=== PATIENT | female | born 2005 | race Hispanic/Latino ===

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

== ENCOUNTER 2023-05-23 14:10 | Emergency (ER) | payer OTHER ==
--- OUTSIDE RECORDS SUMMARY | 2023-05-23 14:23 | XMS REPORT | Continuity of Care Document ---
:2005 Author Organization [facility] t Address [address] [facility] [address] [place] [address] Support Name Relationship Address Phone Formerly [facility], [facility] [id number] [place], [place] [id number] None2 O Unavailable Unavailable Legal Guardian, None O Created by the Eligibility Department Unavailable PLEASE DO NOT MODIFY Billing Purposes, Monik Srivastava M Unavailable Amee Delgado O [address] [place] [address] Odette Ceja V [address] [facility] [id number] [place] [address] Healthcare Proxy, None O Unavailable Unavailab le Legal Guardian O PLEASE DO NOT MODIFY!!!!!!! (000 ) [phone] DO NOT USE Billing Purposes, Legal Guardian, PLEASE STOP O PLEASE DO NOT MODIFY UPDATING!!!! PLEASE DO NOT MODIFY Billing Purposes, None1 O PLEASE DO NOT MODIFY Unavailable PLEASE DO NOT MODIFY Billing Purposes, Melodie Lewis V [address] [facility] [id number] [address] [place] [address] Jenn Tillman V [address] [place] [id number] [place] [address] Gale Hernandez O Unavailable Unavailable Billing Purposes, [place] [address] [place] [address] Shree Negrete O Unavailable Unavailable Kate Braun O Unavailable UnavailDr. Les Perez O Unavailable Unavailable Niya Ana O Unavailable Unavailable Legal Guardian, PLEAST STOP O PLEASE DO NOT MODIFY UPDATING!!! PLEASE DO NOT MODIFY Billing Purposes, Primary Caregiver O Unavailable Unavailable Legal Guardian O Please do not Modify 000 [id number] [phone] Please do not Modify Sole, Care Team Providers Name Role Phone [facility] Primary Care Physician Unavailable rodrigo Attending Clinician Unavailable Carmencita Kline Attending Clinician [phone] Yvonne Ayala MA Attending Clinician Unavailable Melissa Childers MD Attending Clinician [phone] Abbey NOLASCO, Xiomara Attending Clinician [phone] Woody Chew DO Attending Clinician Chela Botello MD Attending Clinician Unavailable Sonja BLACK MILL OPERATOR, Kate Attending Clinician Unavailable Tarun Costa MD Attending Clinician Unavailable Betty Diggs MD Attending Clinician [phone] Fay Brown MD Attending Clinician [phone] Jenn Tillman MD Attending Clinician [phone] Yvrose Hui Attending Clinician Unavailable Dipika Grullon Attending Clinician Unavailable Melissa Zeng MD Attending Clinician [phone] Yessica White Attending Clinician Unavailable Leesa Cortez Attending Clinician Unavailable Hunter Dunn MD Attending Clinician Unavailable Joon Agarwal MD Attending Clinician [phone] Violette Russo Attending Clinician Unavailable Destiney Hui Attending Clinician Unavailable Mell Negrete Attending Clinician Unavailable Sumanth Moreno MD Attending Clinician [phone] Tatianna Varma Attending Clinician Unavailable Jose C Rosado Attending Clinician [phone] Nicho Talley MD Attending Clinician [phone] Gary Beltran Attending Clinician Unavailable Valentino Zeng Attending Clinician Unavailable Anisa Stewart MD Attending Clinician Melodie Lewis MD Attending Clinician Trisha Gunter Attending Clinician [phone] Jill Carrillo Attending Clinician Unavailable Christy Shell Attending Clinician [phone] Yessica White Attending Clinician Unavailable Odette Ceja Attending Clinician [phone] Lynette David Attending Clinician Unavailable Liborio Smith Attending Clinician Unavailable Provider, [facility] Attending Clinician Unavail able Renuka Leo Attending Clinician Unavailable Grecia Cruz Attending Clinician [phone] Parish Cao Attending Clinician [phone] Adelia Meyers Attending Clinician Unavailable Status, Fax Attending Clinician Unavailable Brigida Carpenter Attending Clinician [phone] Chen Jackson Attending Clinician Unavailable Donna Kerns Attending Clinician Unavailable Kenya Chau MD Attending Clinician [phone] Dali Phelps Attending Clinician Unavailable Tracy Howard Attending Clinician Unavailable Gary Beltran Attending Clinician Unavailable Darwin Romero Attending Clinician Tyesha Phelps Attending Clinician Unavailable Jolly Ingram Attending Clinician Unavailable Henny Valencia Attending Clinician Unavailable Marifer Cao Attending Clinician Unavailable Matilda Rene LCSW Attending Clinician Unavailable Danna Villalpando Attending Clinician Unavailable Taya Hein Attending Clinician [phone] Farrah Mccoy Attending Clinician [phone] Marycruz Phelps Attending Clinician Unavailable Gerri Jara Attending Clinician [phone] Adele Ellington Attending Clinician Unavailable Amina Gray Attending Clinician Unavailable Marifer Cope Attending Clinician Unavailable Mary Ch Attending Clinician Unavailable Theresa Meyers Attending Clinician [phone] Luis Armando Burrell Attending Clinician [phone] Allison Thrasher Attending Clinician [phone] Leena Bird Attending Clinician [phone] Yolanda James Attending Clinician Unavailable Nikia Francis Attending Clinician Unavailable Evy Hughes Attending Clinician Unavailable Donna Moy Attending Clinician Unavailable Record, Locums Provider Attending Clinician Unavailable Tamara Shepard Attending Clinician Unavailable Jayesh Nelson Attending Clinician Unavailable Joi Bird Attending Clinician [phone] Aurea Garcia Attending Clinician Unavailable Rosalie Collier Attending Clinician Unavailable Keesha Hopper Attending Clinician Unavailable Vesta Vernon Attending Clinician [phone] Parish Stanley Attending Clinician Unavailable Nicky Stanley Attending Clinician Unavailable Anisa He Attending Clinician Unavailable Beverly Puckett Attending Clinician [phone] Lily Bird Attending Clinician Unavailable Naomy Camacho Attending Clinician [phone] Francoise Gordillo Attending Clinician [phone] Alton Purvis Attending Clinician Unavailable Dilma Kellogg Attending Clinician Unavailable Patricia Stanley Attending Clinician Unavailable Melissa Mcgregor Attending Clinician [phone] Fatoumata Kirkland MD Attending Clinician [phone] Lia Shelton Attending Clinician Unavailable Camila Hernandez MD Attending Clinician Unavailable Manda Reyes Attending Clinician Unavailable Emily Ricardo Attending Clinician Unavailable Irene Champagne Attending Clinician [phone] Lida Shah Attending Clinician Unavailable Monik Espino Attending Clinician Unavailable Felicia Ogden Attending Clinician Unavailable Shravan Johns Attending Clinician Unavailable Ariela Mcgrath Attending Clinician [phone] Parish Jain Attending Clinician [phone] Moise Lee Attending Clinician [phone] Katiuska Patel Attending Clinician [phone] Enrico HATCH, Carmencita Unavailable [phone] Melissa Childers MD Unavailable [phone] Woody Chew DO Unavailable Ayan NOLASCO, Chela Unavailable Unavailable Sonja BLACK MILL OPERATOR, Kate Unavailable Unavailable Parish RN, Yoon Unavailable Unavailable Jenn Tillman MD Unavailable [phone] Anisa Stewart MD Unavailable Melodie Lewis MD Unavailable [phone] Marcial NOLASCO, Turkmen Unavailable [phone] Gerri Fuentes Unavailable [phone] Allison Nickerson Unavailable [phone] Pelon UGALDE LD, Joi Unavailable [phone] Theresa Meyers MD Unavailable [phone] Fatoumata Kirkland MD Unavailable [phone] Saulo NOLASCO, Vesta Unavailable [phone] Igor NOLASCO, Tarun Unavailable Unavailable Maddie ANIMAL SERVICES OFFICER, Jose C Unavailable [phone] Gerri NOLASCO, Nicho Unavailable [phone] Ihsan BLACK MILL OPERATOR, Irene Unavailable [phone] Alcides ANIMAL SERVICES OFFICER, Ariela Unavailable [phone] Jorge NOLASCO, Katiuska Unavailable [phone] Payers Payer Name Policy Type Policy Number Effective Date Expiration Date S doug [facility] [id number] 2020 00:00:00 Problems Condition Condition Condition Status Onset Resolution Last Treating Co mments Source Name Details Category Date Date Treatment Clinician Date Back pain, Condition Active 2023-03-19 EnricoBarbraa low 03-17 22:44:[address] 00:00: Pediatr 00 ics Emergency Condition Active 2023-03-19 Enrico Franciscomaryjane contracept 03-17 22:44:[address] ion 00:00: Pediatr 00 ics Neck and Condition Active 2023-03-19 Franciscomaryjane back pain 01-06 22:40:[address] 00:00: Pediatr 00 ics Macromasti Condition Active 2023-03-19 Barbara Childers a 01-06 22:40:[address] 00:00: Pediatr 00 ics Allergic Condition Active 2023-03-19 [facility] urticaria 12-12 22:40:[address] due to 00:00: Carlos Manuel Pediatr drug 00 ics Bacterial Condition Active 2023-03-19 Ayan Franciscomaryjane vaginosis 12-06 22:40:[address] 00:00: Pediatr 00 ics BMI Condition Active 2023-03-19 Karuna Casillas 38.0-38.9 12-05 22:40:[address] 00:00: Pediatr 00 ics Screening Condition Active 2023-03-19 Barbara Casillas for std 12-05 22:40:[address] 00:00: Pediatr 00 ics Exercise Condition Active 2023-03-19 Neil Casillas outmaryjane Counseling 12-05 22:40:[address] 00:00: Pediatr 00 ics Chlamydial Condition Active 2022-10-23 Barbara Lugo infection 3-15 16:40:[address] 00:00: Pediatr 00 ics Gonorrhea, Condition Active 2022-10-23 Barbara Lugo acute 315 16:40:[address] 00:00: Pediatr 00 ics At risk of Condition Active 2022-03-13 Barbara Tillman 03-12 09:21:[address] 00:00: Pediatr 00 ics Elevated Condition Active 2022-10-23 Barbara Tillman blood 03-12 16:40:[address] pressure 00:00: Pediatr without 00 ics diagnosis of hypertensi on Asthma, Condition Active 2022-03-13 Francisco Tillmanmaryjane mild 03-12 09:21:[address] persistent 00:00: Pediat r , 00 ics uncomplica claudia Nicotine Condition Active 2022-03-13 lennie Tillman dependence 03-12 09:21:[address] 00:00: Pediatr 00 ics Vitiligo Condition Active 2021-03-17 Karl urbinamaryjane 11-30 18:45:49 Obiora, st 00:00: Anisa Pediatr 00 ics Macromasti Condition Active 2019-072020-11-30 Remoue [facility] a 0-16 10:31:23 Morales, st 00:00: Melodie Pediatr 00 ics Sleep Condition Active 2020-02-21 Odette Ceja outhmaryjane disorder 02-20 17:16:55 st 00:00: Pediatr 00 ics Acne Condition Active 2020-01-24 Odette Ceja outmaryjane comedone 01-23 15:15:30 st 00:00: Pediatr 00 ics HEADACHE / HEADACHE Diagnosis Active 2018-072019-08-23 Memoria VOMITING / VOMITING 08-23 13:49:00 l Active 00:00: Akash 06/22/[address] [place] [id number] Vitamin D Condition Active 2018-12-08 Odette Ceja deficiency 12-08 13:43:00 st 00:00: Pediatr 00 ics ABDOMINAL ABDOMINAL Diagnosis Active 2018-09-15 Memoria PAIN PAIN 09-15 22:23:00 l Active 00:00: [facility] [place] 09/15/2018 00 [facility] Anger Condition Active 2017-12-06 Gerri Jara outhwe 12-03 11:05:[address] 00:00: Pediatr 00 ics Behavioral Condition Active 2022-03-12 Adelfo Thrasher en was [place] problems 08-15 14:21:[address] 00:00: to [facility] Pediatr 00 yesterday ics to be assessed. Dietary Condition Active 2022-03-12 Barbara Bird surveillan 01-03 14:21:[address] ce and 00:00: Pediatr counseling 00 ics Obesity Condition Active 2017-03-30 Neil Meyers outwe 12-20 17:58:[address] 00:00: Pediatr 00 ics Hypertrigl Condition Active 2014-12-09 Isael Barbara yceridemia 5-19 20:39:[address] 00:00: Pediatr 00 ics Abnormal Condition Active 2014-12-06 Barbara Kirkland weight 5-19 14:03:[address] gain 00:00: Pediatr 00 ics ACANTHOSIS Condition Active 2013-02-11 Saulo Franciscomaryjane NIGRICANS 4-18 11:41:[address] 00:00: Pediatr 00 ics Vaginal Condition Active 2022-10-23 2022-12-05 Barbara Casillas discharge 8 00:00:00 16:32:[address] 00:00: Pediatr 00 ics ABNORMAL Condition Active 2016-12-20 2022-12-05 Barbara Casillas WEIGHT 4-18 00:00:00 16:32:[address] GAIN 00:00: Pediatr 00 ics History of Past Illness Condition Condition Condition Status Onset Resolution Last Treating Co mments Source Name Details Category Date Date Treatment Clinician Date Urinary Condition Inactiv 2023-03-19 2023-03-19 Barbara Weston frequency e 5 00:00:00 22:44:[address] 00:00: Pediatr 00 ics Allergic Condition Inactiv 2016-2023-03-19 2023-03-19 Barbara Weston rhinitis e 00:00:00 22:44:[address] 00:00: Pediatr 00 ics BMI => Condition Inactiv 2017-0 2022-12-05 2022-12-05 Barbara Casillas 95%ile for e 5-16 00:00:00 16:32:[address] age 00:00: Pediatr 00 ics Health Condition Inactiv 2022-10-23 2022-10-23 Barbara Costa advice, e 3-13 00:00:00 16:41:[address] education, 00:00: Pediat r or 00 ics counseling Implantabl Condition Inactiv 2021-072022-10-23 2022-10-23 Barbara Costa [...] Inactiv 2020-072022-10-23 2022-10-23 Barbara Costa throat e 2- 00:00:00 16:41:[address] 00:00: Pediatr 00 ics Headache, Condition Inactiv 2020-072022-10-23 2022-10-23 Barbara Costa mixed e 1-17 00:00:00 16:41:[address] 00:00: Pediatr 00 ics Exercise Condition Inactiv 2022-10-23 2022-10-23 Barbara Costa Counseling e 9 00:00:00 16:41:[address] 00:00: Pediatr 00 ics Contracept Condition Inactiv 2019-072022-10-23 2022-10-23 IgorBarbara ion e 0-16 00:00:00 16:41:[address] counseling 00:00: Pediat r 00 ics Emergency Condition Inactiv 2019-072022-10-23 2022-10-23 IgorFranciscomaryjane contracept e 0-14 00:00:00 16:41:[address] ion 00:00: Pediatr 00 ics Std Condition Inactiv 2019-072022-10-23 2022-10-23 Igor Franciscomaryjane screening e 0-14 00:00:00 16:41:[address] 00:00: Pediatr 00 ics Chest wall Condition Inactiv 2020-072022-03-12 2022-03-13 Barbara Tillman pain e 1 00:00:00 09:21:[address] 00:00: Pediatr 00 ics Exposure Condition Inactiv 2020-072022-03-12 2022-03-13 Barbara Tillman to scabies e 08-05 00:00:00 09:21:[address] 00:00: Pediatr 00 ics URI Condition Inactiv 2022-03-12 2022-03-13 Barbara Tillman e 04-04 00:00:00 09:21:[address] 00:00: Pediatr 00 ics Loss of Condition Inactiv 2022-03-12 2022-03-13 Barbara Tillman smell e 915 00:00:00 09:21:[address] 00:00: Pediatr 00 ics Back pain Condition Inactiv 2022-03-12 2022-03-13 Barbara Tillman e 5- 00:00:00 09:21:[address] 00:00: Pediatr 00 ics Skin rash Condition Inactiv 2022-03-12 2022-03-13 Barbara Tillman e 7 00:00:00 09:21:[address] 00:00: Pediatr 00 ics Asthma Condition Inactiv 2016-072022-03-12 2022-03-13 Barbara Tillman exacerbati e 2-29 00:00:00 09:21:[address] on 00:00: Pediatr 00 ics Tension Condition Inactiv 2015-2022-03-12 2022-03-13 Barbara Tillman headache e 12-19 00:00:00 09:21:[address] 00:00: Pediatr 00 ics WELL CHILD Condition Inactiv 2012-2022-03-12 2022-03-13 Barbara Tillman EXAMINATIO e 4-18 00:00:00 09:21:[address] N 00:00: Pediatr 00 ics Sexual Condition Inactiv 2020-2021-07-01 2021-04-01 Barbara Perkins activity, e 04-01 00:00:00 17:00:17 Carrsade s t high risk 00:00: Pediatr 00 ics Gonococcal Condition Inactiv 2021-07-01 2021-04-01 Barbara Perkins pharyngiti e 04-01 00:00:00 17:00:[address] s 00:00: Pediatr 00 ics Pharyngiti Condition Inactiv 2021-06-17 2021-03-17 Julieta Talley s acute e 03-17 00:00:00 18:46:48 st 00:00: Pediatr 00 ics Abdominal Condition Inactiv 2021-06-17 2021-04-01 Nicho Talley [...] Pediatr 00 ics Back pain, Condition Inactiv 2018-2020-11-30 2020-11-30 Karl Jimenez chronic e 8-14 00:00:00 10:42:17 Obiora, st 00:00: Anisa Pediatr 00 ics Well Condition Inactiv 2017-2020-11-30 2020-11-30 Karl Singhmaryjane adolescent e 5-16 00:00:00 10:42:17 Obiora, s t care 00:00: Anisa Pediatr 00 ics Screening Condition Inactiv 2019-2020-01-28 2020-01-24 Odette Ceja e 01-23 00:00:00 15:15:30 st 00:00: Pediatr 00 ics [...] e 3-13 00:00:00 15:15:30 st UNSPECIFIE 00:00: Pediat r D 00 ics Streptococ Condition Inactiv 2019-12-07 2019-09-13 Julieta Talley channing e 09-08 00:00:00 11:07:18 st pharyngiti 00:00: Pediat r s 00 ics Diarrhea, Diarrhea, Problem 2018-2019-06-24 2019-06-24 Memoria unspecifie unspecifie 08-23 23:31:42 23:31:42 l d d 18:00: Akash 06/22/2019 00 06/24/2019 [facility] Headache Headache Problem 2018-2019-06-24 2019-06-24 Memoria 06/22/201908-23 23:31:42 23:31:42 l 18:00: Gigi lerner [address] Nausea Nausea Problem 2019-2019-06-24 2019-06-24 Memoria with with 08-23 23:31:42 23:31:42 l vomiting, vomiting, 18:00: Herm josephine unspecifie unspecifie 00 d d 06/22/2019 9 [facility] Dehydratio Dehydrati Problem 2018-2019-06-24 2019-06-24 Memoria n on 08-23 23:31:42 23:31:42 l 06/22/2019 18:00: Gigi n 06/24/2019 00 [facility] Fever, Fever, Problem 2018-072019-06-24 2019-06-24 Memoria unspecifie unspecifie 08-23 23:31:42 23:31:42 l d d 18:00: [place] 06/22/2019 00 06/24/2019 [facility] Sore Condition Inactiv 2018-2019-05-12 2019-04-28 Odette Ceja throat e 009 00:00:00 12:50:51 st (acute) 00:00: Pediatr 00 ics Screening, Condition Inactiv 2018-2018-11-27 2018-11-25 Odette Ceja STD e 11-25 00:00:00 18:23:29 st 00:00: Pediatr 00 ics Sore Condition Inactiv 2018-2018-11-25 2018-11-25 Odette Ceja throat e 08-25 00:00:00 18:23:29 st (acute) 00:00: Pediatr 00 ics Folliculit Condition Inactiv 2018-2018-11-25 2018-11-25 Odette Ceja is e 2-05 00:00:00 18:23:29 st 00:00: Pediatr 00 ics URI, acute Condition Inactiv 2018-2018-11-25 2018-11-25 Odette Ceja NOS e 2- 00:00:00 18:23:29 st 00:00: Pediatr 00 ics Fever NOS Condition Inactiv 2018-2018-11-25 2018-11-25 Odette Ceja e 2-05 00:00:00 18:23:29 st 00:00: Pediatr 00 ics Unspecifie Unspecifi Problem 2018-2018-09-19 2018-09-19 Memoria d ed 09-16 01:44:04 01:44:04 l abdominal abdominal 06:00: Herm josephine pain pain 00 09/16/2018 09/19/2018 Emiliana Stahlopharyn Condition Inactiv 2017-2017-12-06 2017-12-06 Gerri Jara gitis, e 10-30 00:00:00 11:05:[address] acute 00:00: Pediatr 00 ics Head lice Condition Inactiv 2017-2017-12-06 2017-12-06 Gerri Jara e 10-30 00:00:00 11:05:[address] 00:00: Pediatr 00 ics Conjunctiv Condition Inactiv 2017-10-30 2017-10-30 Barbara Meyers itis acute e 08-15 00:00:00 10:23:[address] 00:00: Pediatr 00 ics Acute Condition Inactiv 2016-072017-10-30 2017-10-30 Barbara Meyers sinusitis e 00:00:00 10:23:25 Theresa s t 00:00: Pediatr 00 ics ALLERGIC Condition Inactiv 2013-072017-08-15 2017-08-15 OsterholmBarbara RHINITIS e 08-15 00:00:00 13:04:13 Allison E [...] 03-20 00:00:00 11:50:[address] superficia 00:00: Pediat [...] 08-04 00:00:00 11:50:12 Theresa s t 00:00: Pediatr 00 ics PEDICULOSI Condition Inactiv 2012-072016-12-20 2016-12-20 Barbara Meyers S CAPITIS e 0- 00:00:00 11:50:12 Theresa s t (HEAD 00:00: Pediatr LOUSE) 00 ics STREPTOCOC Condition Inactiv 2012-072016-12-20 2016-12-20 Barbara Meyers CHANNING e 0-25 00:00:00 11:50:[address] PHARYNGITI 00:00: Pediat r S 00 ics UNSPECIFIE Condition Inactiv 2016-12-20 2016-12-20 Barbara Meyers D VISUAL e 11-05 00:00:00 11:50:[address] LOSS 00:00: Pediatr 00 ics Sinusitis Condition Inactiv 2015-12-03 2015-12-03 Barbara Meyers e 09-08 00:00:00 16:11:[address] 00:00: Pediatr 00 ics Gastroente Condition Inactiv 2014-2015-12-03 2015-12-03 Barbara Meyers ritis, e 12-19 00:00:00 16:11:[address] viral 00:00: Pediatr 00 ics Pharyngiti Condition Inactiv 2014-2015-12-03 2015-12-03 Barbara Meyers s, acute e 12-06 00:00:00 16:11:[address] 00:00: Pediatr 00 ics Otitis Condition Inactiv 2014-2015-12-03 2015-12-03 Barbara Meyers externa e 12-06 00:00:00 16:11:[address] Right 00:00: Pediatr 00 ics FEVER Condition Inactiv 2015-12-03 2015-12-03 Barbara Meyers e 08-23 00:00:00 16:11:[address] 00:00: Pediatr 00 ics OTITIS Condition Inactiv 2015-12-03 2015-12-03 Barbara Meyers MEDIA, e 08-23 00:00:00 16:11:[address] SEROUS 00:00: Pediatr 00 ics PHARYNGITI Condition Inactiv 2014-02-01 2013-08-04 RamaswaBarbara moses S ACUTE e 08-04 00:00:00 13:19:[address] 00:00: Pediatr 00 ics ABDOMINAL Condition Inactiv 2013-02-15 2013-02-11 Barbara Mcgrath PAIN, e 02-11 00:00:00 11:50:[address] UNSPECIFIE 00:00: Pediat r D 00 ics PHARYNGITI Condition Inactiv 2012-10-21 2012-09-30 Barabra Patel S ACUTE e 09-30 00:00:00 13:31:[address] 00:00: Pediatr 00 ics LICE Condition Inactiv 2012-10-14 2012-09-30 Barbara Patel e 09-30 00:00:00 13:31:[address] 00:00: Pediatr 00 ics Allergies, Adverse Reactions, Alerts Allergy Allergy Status Severity Reaction(s) Onset Inactive Treating Comm ents Source Name Type Date Date Clinician METRONID Drug Active High Rash 2023-0 [facility] AZOLE allergy Criticali 6-07 [place] (disorde ty 00:00: [place]) 00 [facility] e No Known No Known Active Memori a Medicati Medicati l on on Akash Allergie Allergie s s Social History Social Habit Start Date Stop Date Quantity Comments Source social history 2023-03-17 2023-03-17 reviewed today [facility] reviewed E&M 14:26:02 14:26:02 [facility] drug use 2023-03-17 2023-03-17 Never [facility] 14:26:02 14:26:02 [facility] if the patient is 2023-03-17 2023-03-17 No [facility] using/has used a 14:26:02 14:26:02 Commun[facility] vaping item, Health Current, Former, Never Used, Not asked alcohol use 2023-03-17 2023-03-17 Currently [facility] 14:26:02 14:26:02 [facility] Health number of children 2023-03-17 2023-03-17 [facility] 14:26:02 14:26:02 [facility] Health sexual orientation 2023-03-17 2023-03-17 Heterosexual [facility] [facility] 14:26:02 14:26:02 [facility] Health is there any chance 2023-03-17 2023-03-17 No [facility] y that you could be 14:26:02 14:26:02 Communi ty ? Health tobacco use 2023-03-17 2023-03-17 Currently [facility] (cigarettes, cigar, 14:26:02 14:26:02 Commu nity chew, pipe) Health PHQ2 Questionairre 2023-01-06 2023-01-06 [facility] Score 13:03:42 13:03:42 [facility] Health number of sexual 2023-01-06 2023-01-06 [facility] partners in last 13:03:42 13:03:42 Communit y year Health Ever had sexual 2023-01-06 2023-01-06 Yes [facility] intercourse? 13:03:42 13:03:42 [facility] Health assessment of health 2023-01-06 2023-01-06 Adequate [facility] literacy (NCQA [facility] 13:03:42 13:03:42 Commu nity 2014 Standards, Health 3C10) how often per day 2023-01-06 2023-01-06 current every day [facility] the patient is using 13:03:42 13:03:42 [facility] [employer] Health passive cigarette 2022-12-25 2022-12-25 LA32-8 [facility] smoke exposure 13:18:04 13:18:04 [facility] albumin, serum 2022-12-24 2022-12-24 4.3 g/dL [facility] 10:51:00 10:51:00 [facility] condom use 2022-12-12 2022-12-12 Never [facility] 13:15:58 13:15:58 [facility] sex at 2022-12-12 2022-12-12 F [facility] 13:15:58 13:15:58 [facility] time of call 2022-12-09 2022-12-09 12/09/2022 3:10 PM [facility] 15:10:33 15:10:33 [facility] Patient was 2022-12-05 2022-12-05 Counseled for [facility] counseled for sexual 14:56:35 14:56:35 sexual health C [facility]munity safety safety. Health Category for Work 2022-09-26 2022-09-26 Food & Alcohol Leg acy 12:46:32 12:46:32 [facility] Health total number of 2022-09-26 2022-09-26 [facility] lifetime sexual 12:46:32 12:46:32 [facility] current school grade 2022-01-10 2022-01-10 currently [facility] [facility] level 09:19:30 09:19:30 enrolling into [facility] [employer], no school Health at the moment Gender(s) of 2022-01-10 2022-01-10 Male [facility] previous or current 09:19:30 09:19:30 Commu nity sexual relationships Heal nutrition 2017-01-03 2017-01-03 nothing [facility] assessment, 24-hour 14:16:51 14:16:51 Commu nity food intake recall, [facility] breakfast nutrition 2017-01-03 2017-01-03 does not remember [facility] assessment, 24-hour 14:16:51 14:16:51 Commu [facility] 2017-01-03 2017-01-03 No [facility] assessment, history, 14:16:51 14:16:51 Comm unity do you do any Health exercise or physical activity? nutrition 2017-01-03 2017-01-03 abbibrain, with [facility] assessment, 24-hour 14:16:51 14:16:51 oil and onion. C ommunity food intake recall, nothing. Healt h lunch TV or video use, 2014-12-06 2014-12-06 3-4 [facility] hours per day 12:29:45 12:29:45 [facility] Smoking Status Start Date Stop Date Source Smokes tobacco daily 2023-03-17 14:26:02 [facility] (finding) Ex-smoker (finding) 2020-01-24 13:25:51 2020-01-24 13:25:51 [facility] Social History [facility] Medications Ordered Filled Start Stop Current Ordering Indication Dosage Frequency Signature Comments Components Source Medication Medication Date Date Medication? Clinician (SIG) Name Name (IBUPROFEN) Yes Arbelia 1 Take 1 S outhwe 600 MG TABS 8-28 Enrico PA tablet by st 00:00: mouth Pediatr 00 every six ics to eight hours as needed for pain, NEHA Yes Arbelia 1 Take 1 [place] (ULIPRISTAL 8-28 Enrico PA tablet by st ACETATE) 30 00:00: mouth once Pediatr MG TABS 00 a day RODNEY ics within 120 hours (5 days) of unprotecte d intercours e or known/susp ected contracept wale failure (CLINDAMYCI 2022- No Xiomara 1 Take 1 [place] N HCL) 300 6-07 08-30 Abbey NOLASCO capsule by st MG CAPS 00:00: 00:00 mouth Pediatr 00 :00 twice a ics day RETIN-A Yes Arnold 1 Apply 1 a Karuna thwe (TRETINOIN) 5-[address] 0.025 % 00:00: Naina amount to Pediatr CREA 00 DO affected ics area every night as directed Apply small green pea sized amount to clean face at night. Wash off in am, apply (PREDNISONE 2022- No Arnold 1 1 tablet [place] ) 20 MG 5-25 08-30 Carlos Manuel by mouth st TABS 00:00: 00:00 Naina twice a Pedi atr 00 :00 DO day for 3 ics days then 1 a day for 3 days (METRONIDAZ 2022- No Chela 1 Take 1 Karuna thwe OLE) 500 MG 12-06 Ayan NOLASCO tablet by st TABS 00:00: 00:00 mouth Pediatr 00 :00 twice a ics day ALBUTEROL Yes Tarun Inhale 4-6 So uthwe SULFATE HFA 4-05 Igor NOLASCO puff using st (ALBUTEROL 16:05: inhaler Pedi atr SULFATE) 14 every four ics 108 (90 to six Base) hours as MCG/ACT needed use AERS with spacer as needed for difficulty breathing/ wheezing/p ersistent cough. SPRINTEC 28 2021-07- No Peace 1 Take 1 So uthwe (NORGESTIMA 08-21 04- Nwegbo-Ban tablet by st TE-ETH 00:00: 00:00 jessica NOLASCO mouth once Ped iatr ESTRADIOL) 00 :00 a day ics 0.25-35 Start MG-MCG TABS today NEXPLANON 2021- No [place] (ETONOGESTR 04-[address] EL) 68 MG 00:00: 00:00 Pediatr IMPL 00 :00 ics NEHA 2022- No Jenn 1 Take 1 w e (ULIPRISTAL 03-12 [address] [facility]) 30 00:00: 00:00 mouth Pedi atr MG TABS 00 :00 single ics dose within 120 hours (5 days) of unprotecte d sex ZITHROMAX 2021- No Melissa 4 Take 4 Karuna thwe (AZITHROMYC 01-14 [address] IN) 250 MG 00:00: 00:00 mouth Pedia tr TABS 00 :00 single ics dose SPRINTEC 28 2021- No Jenn 1 Take 1 we (NORGESTIMA 01-[address] TE-ETH 00:00: 00:00 mouth once Pedi atr ESTRADIOL) 00 :00 a day ics 0.25-35 every day MG-MCG TABS PROAIR HFA 2020-07 Yes Jenn 2-4 puff [place] (ALBUTEROL [address] SULFATE) 00:00: inhaler Pediat r 108 (90 00 every four ics Base) hours as MCG/ACT needed as AERS cough or wheezing or chest tightness or shortness of breath ProAir HFA 2020-07- No Jenn 2-4 puff [place] 90 210-[address] mcg/actuati 00:00: 00:00 inhaler Pe diatr on HFA 00 :00 every four ics aerosol hours as inhaler needed as cough or wheezing or chest tightness or shortness of breath FLOVENT HFA 2020-07- No Jenn 2 Inhale 2 we (FLUTICASON 08-[address] E 00:00: 00:00 MD directed Pediatr PROPIONATE 00 :00 twice a ics HFA) 44 day as MCG/ACT needed for INHA chest tightness or shortness of breath or wheezing or cough. (IBUPROFEN) 2020-07- No Hunter Dunn 1 Take 1 [place] 400 MG TABS 08-21 MD tablet by [...] MG 00:00: 00:00 twice a Pedi atr [id number] 00 :00 day as ics needed for cough Augmentin 2020-07 No Hunter Dunn 1 Take 1 S outhwe 875-125 mg 08-[address] tablet 00:00: 00:00 mouth Pediatr 00 :00 every ics twelve hours for sinus infection (PERMETHRIN 2020-07- No Rayne Apply Karuna we ) 5 % CREA 08-[address] 00:00: 00:00 to skin as [...] 1 tablet Karuna thwe 600 MG TABS 5-13 03-[address] 00:00: 00:00 every Pediatr 00 :00 eight ics hours as needed ALLERGY 2019-07- No Melodie take 1 tab S outhwe RELIEF - Remoue per day as st CHILDRENS 00:00: 00:00 Morales needed for Pediatr 10 MG ORAL 00 :00 MD itchiness ics TABLET CHEWABLE (CLINDAMYCI 2019-07- No Melodie 1 one [place] [facility] N HCL) 300 11-30 Remoue tablet by label st MG CAPS 00:00: 00:00 Morales mouth Pedi atr 00 :00 MD every 6 ics hours for 10 days (FLUCONAZOL 2019-07- Melodie Take 1 tab [facility] E) 150 MG 11-[address] TABS 00:00: 00:00 Morales Pediatr 00 :00 MD ics (MELATONIN) 2020- Odette Ceja MD 1{Table 1xD 1 tablet [facility] 5 MG TABS 02-20 t} every st 00:00: 00:00 night Pediatr 00 :00 ics (PERMETHRIN Odette Ceja MD Apply to [facility] ) 5 % CREA 02-[address] 00:00: 00:00 neck down, Pediat r 00 :00 leave on ics overnight and wash off in the morning (ERGOCALCIF Odette Ceja MD 1{Capsu Q7.33907U 1 caps ule [facility] MALACHI) 1.25 02-20 le} once a st MG (53486 00:00: 00:00 week for 8 P ediatr UT) CAPS 00 :00 weeks ics FLONASE 2020- No Odette Ceja 1 1 spray Karuna we ALLERGY 01-[address] RELIEF 00:00: 00:00 nostrils Pediat r (FLUTICASON 00 :00 once a day ic s E PROPIONATE) 50 MCG/ACT SUSP (PERMETHRIN 2020- No Odette Ceja MD Apply to [facility] ) 5 % CREA 01-[address] 00:00: 00:00 neck down, Pediat r 00 :00 leave on ics overnight and wash off in the morning (TRETINOIN) 2020- No Odette Ceja MD apply [facility] 0.025 % 01-[address] CREA 00:00: 00:00 amount to Pediatr 00 :00 affected ics area at night, wash off in am (CLOTRIMAZO 2020- No Odette Ceja MD Apply to [facility]) 1 % 01-23 05-[address] CREA 00:00: 00:00 chest Pediatr 00 :00 twice ics daily for 6 weeks or until gone (HYDROXYZIN 2019- No Sharmilla 8 ml by [facility] E HCL) 10 01-17- Prince Chau MD mouth st MG/5ML SYRP 00:00: 00:00 every 8 Pe diatr 00 :00 hours as ics needed for rash, itching (PERMETHRIN 2019- No Sharmilla Apply to [facility] ) 5 % CREA 01-17 Prince Chau MD affected label st 00:00: 00:00 areas face please Pedi atr 00 :00 sparing ics eyes , mouth, from neck down, leave on overnight and wash off in the morning( only one time tonite) (AMOXICILLI 2019- No Nicho Gerri 2 tabs By [facility] N) 500 MG 09-13-[address] TABS 00:00: 00:00 daily x 10 Pediat r 00 :00 days. ics Azeri Label. (CETIRIZINE 2019- No Nicho Gerri 1 tab by [facility] HCL) 10 MG 09-08- MD mouth at st TABS 00:00: 00:00 bedtime. Pediatr 00 :00 Azeri ics Label. FLONASE 2019- No Nicho Gerri 1 spray to [facility] ALLERGY 09-08-[address] RELIEF 00:00: 00:00 nostril Pediatr (FLUTICASON 00 :00 daily. ics E Azeri PROPIONATE) Label. 50 MCG/ACT SUSP Ondansetron 2018-07 [...] tongue, # 10 tab, 0 Refill(s) Sodium 2019- Yes 1,000 mL, Memori a Chloride 2-03 1000 l 0.9% 21:50: ml/hr, Akash (Bolus) IV 00 Infuse Over: 1 hr, Route: IV, 1,000, Drug form: INJ, ONCE, Priority: STAT, Dosing Weight 78.15 kg, Start date: 06/22/19 15:50:00 [employer], Stop date: 06/22/19 15:50:00 [employer], 0 Sodium 2018- Yes 1,000 mL, Memori a Chloride 2-03 1000 l 0.9% 21:50: ml/hr, Long Barn (Bolus) IV 00 Infuse Over: 1 hr, Route: IV, 1,000, Drug form: INJ, ONCE, Priority: STAT, Dosing Weight 78.15 kg, Start date: 06/22/19 15:50:00 [employer], Stop date: 06/22/19 15:50:00 [employer], 0 Sodium 2018- Yes 1,000 mL, Memori a Chloride 2-03 1000 l 0.9% 21:50: ml/hr, Akash (Bolus) IV 00 Infuse Over: 1 hr, Route: IV, 1,000, Drug form: INJ, ONCE, Priority: STAT, Dosing Weight 78.15 kg, Start date: 06/22/19 15:50:00 [employer], Stop date: 06/22/19 15:50:00 [employer], 0 Sodium 2019-1 Yes 1,000 mL, Memori a Chloride 2-03 1000 l 0.9% 21:50: ml/hr, [place] (Bolus) IV 00 Infuse Over: 1 hr, Route: IV, 1,000, Drug form: INJ, ONCE, Priority: STAT, Dosing Weight 78.15 kg, Start date: 06/22/19 15:50:00 [employer], Stop date: 06/22/19 15:50:00 [employer], 0 Sodium 2019-1 No 1,000 mL, Memori a Chloride 2-03 1000 l 0.9% 21:49: ml/hr, Akash (Bolus) IV 00 Infuse Over: 1 hr, Route: IV, 1,000, Drug form: INJ, ONCE, Priority: STAT, Dosing Weight 78.15 kg, Start date: 06/22/19 15:49:00 [employer], Stop date: 06/22/19 15:49:00 [employer], 0 Sodium 2019-1 No 1,000 mL, Memori a Chloride 2-03 1000 l 0.9% 21:49: ml/hr, [place] (Bolus) IV 00 Infuse Over: 1 hr, Route: IV, 1,000, Drug form: INJ, ONCE, Priority: STAT, Dosing Weight 78.15 kg, Start date: 06/22/19 15:49:00 [employer], Stop date: 06/22/19 15:49:00 [employer], 0 Sodium 2019- No 1,000 mL, Memori a Chloride 2-03 1000 l 0.9% 21:49: ml/hr, [place] (Bolus) IV 00 Infuse Over: 1 hr, Route: IV, 1,000, Drug form: INJ, ONCE, Priority: STAT, Dosing Weight 78.15 kg, Start date: 06/22/19 15:49:00 [employer], Stop date: 06/22/19 15:49:00 [employer], 0 Sodium 2019-1 No 1,000 mL, Memori a Chloride 2-03 1000 l 0.9% 21:49: ml/hr, Akash (Bolus) IV 00 Infuse Over: 1 hr, Route: IV, 1,000, Drug form: INJ, ONCE, Priority: STAT, Dosing Weight 78.15 kg, Start date: 06/22/19 15:49:00 [employer], Stop date: 06/22/19 15:49:00 [employer], 0 Zofran 2019-1 No Notes: Memoria 2-03 (Same as: l [...] kg, Priority: STAT, Start date: 06/22/19 13:27:00 [employer], Stop date: 06/22/19 13:27:00 [employer] normal 2018-07 No 1,000 mL, Memori a saline 0.9% - Rate: l IV 1,000 mL 19:27: 1,000 Nikki nn 00 ml/hr, Infuse over: 1 hr, Route: IV, Dosing Weight 70.909 kg, Total Volume: 1,000, Start date: 06/22/19 13:27:00 [employer], Duration: 30 day, Stop date: 07/22/19 13:26:00 [employer], 0.89, m2, 0 Saline 2018-07 No Notes: Memoria Flush 0.9% 2-03 preservati l 19:27: ve free. [place] 00 Saline 2018-07 No Notes: Memoria Flush 0.9% 2-03 preservati l 19:27: ve free. Tylenol 2018-07 No 975 mg, Memoria 2-03 Route: PO, l 19:27: Drug form: Akash 00 TAB, ONCE, Dosing Weight 70.909, kg, Priority: STAT, Start date: 06/22/19 13:27:00 [employer], Stop date: 06/22/19 13:27:00 [employer] normal 2019- No 1,000 mL, Memori a saline 0.9% 2-03 Rate: l IV 1,000 mL 19:27: 1,000 Nikki nn 00 ml/hr, Infuse over: 1 hr, Route: IV, Dosing Weight 70.909 kg, Total Volume: 1,000, Start date: 06/22/19 13:27:00 [employer], Duration: 30 day, Stop date: 07/22/19 13:26:00 [employer], 0.89, m2, 0 Tylenol 2018-07 No 975 mg, Memoria 2-03 Route: PO, l 19:27: Drug form: Akash 00 TAB, ONCE, Dosing Weight 70.909, kg, Priority: STAT, Start date: 06/22/19 13:27:00 [employer], Stop date: 06/22/19 13:27:00 [employer] normal 2018-07 No 1,000 mL, Memori a saline 0.9% 2-03 Rate: l IV 1,000 mL 19:27: 1,000 Nikki nn 00 ml/hr, Infuse over: 1 hr, Route: IV, Dosing Weight 70.909 kg, Total Volume: 1,000, Start date: 06/22/19 13:27:00 [employer], Duration: 30 day, Stop date: 07/22/19 13:26:00 [employer], 0.89, m2, 0 Saline 2018- No Notes: Memoria Flush 0.9% 2-03 preservati l 19:27: ve free. [place] 00 Tylenol 2018- No 975 mg, Memoria 2-03 Route: PO, l 19:27: Drug form: Akash 00 TAB, ONCE, Dosing Weight 70.909, kg, Priority: STAT, Start date: 06/22/19 13:27:00 [employer], Stop date: 06/22/19 13:27:00 [employer] normal 2019 No 1,000 mL, Memori a saline 0.9% 2-03 Rate: l IV 1,000 mL 19:27: 1,000 Nikki nn 00 ml/hr, Infuse over: 1 hr, Route: IV, Dosing Weight 70.909 kg, Total Volume: 1,000, Start date: 06/22/19 13:27:00 [employer], Duration: 30 day, Stop date: 07/22/19 13:26:00 [employer], 0.89, m2, 0 (ERGOCALCIF 2018- No Odette Ceja MD 1{Capsu Q7.14656Y 1 caps sandra Jimenez MALACHI) 1.25 5-21 07-16 le} once a st MG (64258 00:00: 00:00 week for 8 P ediatr [place]) CAPS 00 :00 weeks ics PROAIR HFA 2020- No Odette Ceja 2 2 puff [place], [facility] (ALBUTEROL 11-25-15 every four 1 for s t SULFATE) 00:00: 00:00 hours as home, 1 P ediatr 108 (90 00 :00 needed for ics Base) school MCG/ACT AERS ProAir HFA 2020- No 2 2 puff [place], [place] 90 5-15 every four [address] mcg/actuati 00:00: [...] tab, PO, l Tablet 06:47: Daily, # [place] [Pepcid] 00 14 tab, 0 Refill(s) Ondansetron [...] ONCE, methicone) STAT, Start date: 09/15/18 23:14:00 [employer], Stop date: 09/15/18 23:14:00 [employer] GI cocktail No 30 mL, Alejo james (aluminum 2-27 Route: PO, l hydroxide/m 05:14: Dosing Herm josephine agnesium 00 Weight hydroxide/l 70.909, idocaine/si kg, ONCE, methicone) STAT, Start date: 09/15/18 23:14:00 [employer], Stop date: 09/15/18 23:14:00 [employer] GI cocktail No 30 mL, Alejo james (aluminum 2-27 Route: PO, l hydroxide/m 05:14: Dosing Herm josephine agnesium 00 Weight hydroxide/l 70.909, idocaine/si kg, ONCE, methicone) STAT, Start date: 09/15/18 23:14:00 [employer], Stop date: 09/15/18 23:14:00 [employer] GI cocktail No 30 mL, Alejo james (aluminum 2-27 Route: PO, l hydroxide/m 05:14: Dosing Herm josephine agnesium 00 Weight hydroxide/l 70.909, idocaine/si kg, ONCE, methicone) STAT, Start date: 09/15/18 23:14:00 [employer], Stop date: 09/15/18 23:14:00 [employer] Sodium No 1,000 mL, Memori a Chloride 2-27 1000 l 0.9% 03:15: ml/hr, Akash (Bolus) IV 00 Infuse Over: 1 hr, Route: IV, 1,000, Drug form: INJ, ONCE, Priority: STAT, Dosing Weight 70.909 kg, Start date: 09/15/18 21:15:00 [employer], Stop date: 09/15/18 21:15:00 [employer] Ondansetron No Notes: Alejo james 2-27 (Same as: l 03:15: Zofran) Akash 00 MEDICATION WASTE Product Size: 4 mg Product Wasted: ___ mg Sodium No 1,000 mL, Memori a Chloride 2-27 1000 l 0.9% 03:15: ml/hr, Akash (Bolus) IV 00 Infuse Over: 1 hr, Route: IV, 1,000, Drug form: INJ, ONCE, Priority: STAT, Dosing Weight 70.909 kg, Start date: 09/15/18 21:15:00 [employer], Stop date: 09/15/18 21:15:00 [employer] Ondansetron 0 No Notes: Alejo james 2-27 (Same as: l 03:15: Zofran) Akash 00 MEDICATION WASTE Product Size: 4 mg Product Wasted: ___ mg Sodium 2019 No 1,000 mL, Memori a Chloride 2-27 1000 l 0.9% 03:15: ml/hr, Akash (Bolus) IV 00 Infuse Over: 1 hr, Route: IV, 1,000, Drug form: INJ, ONCE, Priority: STAT, Dosing Weight 70.909 kg, Start date: 09/15/18 21:15:00 [employer], Stop date: 09/15/18 21:15:00 [employer] Ondansetron 2019-0 No Notes: Alejo james 2-27 (Same as: l 03:15: Zofran) [place] 00 MEDICATION WASTE Product Size: 4 mg Product Wasted: ___ mg Sodium No 1,000 mL, Memori a Chloride 09-16 1000 l 0.9% 03:15: ml/hr, [place] (Bolus) IV 00 Infuse Over: 1 hr, Route: IV, 1,000, Drug form: INJ, ONCE, Priority: STAT, Dosing Weight 70.909 kg, Start date: 09/15/18 21:15:00 [employer], Stop date: 09/15/18 21:15:00 D[employer] Ondansetron No Notes: Alejo james 2-27 (Same as: l 03:15: Zofran) [place] 00 MEDICATION WASTE Product Size: 4 mg Product Wasted: ___ mg (IBUPROFEN) 2020- No Namis tab by So uthwe 400 MG TABS 08-[address] 00:00: 00:00 every 6-8 Pediatr 00 :00 hours as ics needed for pain, fever (IBUPROFEN) 2019- No Odette Ceja MD 3 tab by [place] [...] HFA 2017- No Theresa 2 puffs [place] (ALBUTEROL 10-[address] SULFATE) 00:00: 00:00 spacer Pediat r 108 (90 00 :00 every 4 ics Base) hrs as MCG/ACT needed for AERS wheeze PROAIR HFA 2017- No Theresa 2 puffs [place] 108 (90 10-[address] BASE) 00:00: 00:00 spacer Pediatr MCG/ACT 00 :00 every 4 ics INHALATION hrs as AEROSOL needed for SOLUTION wheeze (IBUPROFEN) 2017- No Luis Armando 20 ml by S carlitosmaryjane 100 MG/5ML 3-30 04-09 [place] mouth s t SUSP 00:00: 00:00 michele MD every 6-8 Pedia tr 00 :00 hours as ics needed for pain, fever (AMOXICILLI 2017- No Allison E Give 10 [facility] N-POT 08-15 02-[address] [place] [address] By [address] CLAVULANATE 00:00: 00:00 PA Mouth Pedi atr ) 600-42.9 00 :00 Twice a ics MG/5ML SUSR Day for 10 days POLYTRIM 2017- No Allison E Instill 1 [facility] (POLYMYXIN 08-[address] [place] [address] B-TRIMETHOP 00:00: 00:00 PA both eyes Pediatr RIM) 00 :00 4 times ics 42884-2.1 daily for UNIT/ML-% 7 days SOLN (CETIRIZINE 2016-07- No Gerri Chayo 1 tab by [facility]) 10 MG 08-[address] TABS 00:00: 00:00 bedtime Pediatr 00 :00 ics (FLUTICASON 2016-07- No Gerri Chayo 1 spray to [facility] E 08-[address] PROPIONATE) 00:00: 00:00 nostril at Pediatr 50 MCG/ACT 00 :00 bedtime ics SUSP (AMOXICILLI 2016-07- No Gerri Chayo 1 tab by [facility] N-POT 07-[address] CLAVULANATE 00:00: 00:00 twice a Pe diatr ) 875-125 00 :00 day ics MG TABS CULTURELLE 2017- No Carretta one pack Azeri [facility] KIDS 01-08- Mwesiga three st (LACTOBACIL 00:00: 00:00 [employer]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 Wash hands with soap. (AMOXICILLI 2015- Theresa 1 tab by Barbara Lerner) 875 MG 09-[address] TABS 00:00: 00:00 twice a Pediatr 00 :00 day ics (ACETAMINOP 2014-07- Nicho Gerri 1-2 tab by dave grady [facility] JABARI) 325 MG 08-[address] TABS 00:00: 00:00 every 6 Pediatr 00 :00 hours as ics needed for fever and pain BROMFED DM 2014-07- Nicho Gerri 5 ml By [facility] 30-2-10 08-08 12- MD Mouth st MG/5ML ORAL 00:00: 00:00 every 6 Pe diatr SYRUP 00 :00 hours As ics Needed for cough SKLICE 0.5 2014-07- Nicho Gerri Apply to [facility] % EXTERNAL 08-[address] LOTION 00:00: 00:00 and hair Pediat r 00 :00 from scalp ics to tip of hair, wash hair only with water after 10 minutes of applicatio n. Wash hands with soap. ORALYTE 2015- Take By Seth dumont (ORAL 12-[address] ELECTROLYTE 00:00: 00:00 sheila Pedia yesica Trejo) SOLN 00 :00 ics (IBUPROFEN) 2015- No [address] [facility] MG/5ML 12-[address] SUSP 00:00: 00:00 every 6-8 Pediatr 00 :00 hours as ics needed for pain, fever MIRALAX 2014- No Camila 1 capfull [facility] (POLYETHYLE 08-23 David NOLASCO mixed with st NE GLYCOL 00:00: 00:00 4 oz Pediatr 3350) 17 00 :00 juice/wate ics GM/SCOOP r daily as POWD needed for constipati on (IBUPROFEN) 2014- No Camila 20 ml by [facility] 100 MG/5ML 08-23 David NOLASCO mouth s t SUSP 00:00: 00:00 every 6-8 Pediatr 00 :00 hours as ics needed for pain, fever (LORATADINE 2014- No Camila 10 ml by [facility] ) 5 MG/5ML 08-23 David NOLASCO mouth s t SYRP 00:00: 00:00 nightly Pediatr 00 :00 ics LORATADINE 2014- No Camila 10 ml by [facility] 5 MG/5ML 08-[address] ORAL SYRUP 00:00: 00:00 nightly Ped iatr 00 :00 ics NASONEX 50 2014- No Camila 1 spr to [facility] MCG/ACT 08-[address] NASAL 00:00: 00:00 nostril Pediatr SUSPENSION 00 :00 once a day ics (AMOXICILLI 2014- No Camila 10 mL Karuna we N) 400 08-23 David NOLASCO twice a st MG/5ML SUSR 00:00: 00:00 day X 5 Pe diatr 00 :00 days ics (IBUPROFEN) 2013-07- No Camila 20 ml by [facility] 100 MG/5ML 08-23 David NOLASCO mouth s t SUSP 00:00: 00:00 every 6-8 Pediatr 00 :00 hours as ics needed for pain, fever TAMIFLU 2013-07- No Camila 12.5 ml by [facility] (OSELTAMIVI 08-[address] R 00:00: 00:00 twice a Pediatr PHOSPHATE) 00 :00 day for 5 ics 6 MG/ML days SUSR (>40kg) (PERMETHRIN 2013-07- No Camila apply to [facility] ) 5 % CREA 08-15 David NOLASCO scalp at st 00:00: 00:00 night and Pediatr 00 :00 rinse with ics water in the morning (LORATADINE 2013-07- No Camila 10 ml by [facility] ) 5 MG/5ML 08-15 David NOLASCO mouth s t SYRP 00:00: 00:00 nightly Pediatr 00 :00 ics LORATADINE 2013-07- Camila 10 ml by [facility] 5 MG/5ML 08-[address] ORAL SYRUP 00:00: 00:00 nightly Ped iatr 00 :00 ics NASONEX 50 2013-07 Camila 1 spray to [facility] MCG/ACT 08-[address] NASAL 00:00: 00:00 nostril Pediatr SUSPENSION 00 :00 daily ics BROMFED DM 2013- Camila 4 ml every [facility] 30-2-10 08-19 David NOLASCO [address] MG/5ML ORAL 00:00: 00:00 for 3 days Pediatr SYRUP 00 :00 ics (PERMETHRIN Camila Apply to [facility] ) 5 % CREA 08-19 David NOLASCO head for st 00:00: 00:00 one hour Pediatr 00 :00 then rinse ics with water (IBUPROFEN) 2015- 15 ml by [facility] 100 MG/5ML 08-04- mouth st SUSP 00:00: 00:00 every 6-8 Pediatr 00 :00 hours as ics needed for pain, fever (AMOXICILLI 2012-07- No 7.5 mL Karuna we N) 400 0 05-[address] MG/5ML SUSR 00:00: 00:00 day X 10 P ediatr 00 :00 days ics ULESFIA 5 % 2012-07- No Apply to [facility] EXTERNAL 0 05- dry hair. st LOTION 00:00: 00:00 After 10 Pediat r 00 :00 minutes, ics throughly rinse off with water. Remove nits and lice w/comb. Repeat in 1 week LICE 2015- No Apply as [facility] TREATMENT 09-[address] 0.33-4 % 00:00: 00:00 Pediatr EXTERNAL 00 :00 ics LIQUID Vital Signs Vital Name Observation Time Observation Value Comments Source respiratory rate E&M 2023-03-17 14:26:02 15 /min [facility] Diastolic blood 2023-03-17 14:26:02 82 mm[Hg] [facility] pressure Health Systolic blood 2023-03-17 14:26:02 122 mm[facility]Hg] [facility] pulse rate 2023-03-17 14:26:02 89 /min [facility] temperature E&M 2023-03-17 14:26:02 98.3 [degF] [facility] Health BMI (body mass 2023-03-17 14:26:02 98 % [facility] Health Body Mass Index 2023-03-17 14:26:02 38.40 kg/m2 [facility] (Ratio) Health weight E&M 2023-03-17 14:26:02 216 [lb_av] [facility] weight percentile 2023-03-17 14:26:02 98 Leg [facility] Health weight in kilograms 2023-03-17 14:26:02 98.18 [facility] height in 2023-03-17 14:26:02 160.02 [facility] centimeters [facility]M Health height percentile 2023-03-17 14:26:02 31 [facility] 2023-03-17 14:26:02 oral [facility] Health Diastolic blood 2022-12-05 14:56:35 79 mm[Hg] [facility] Systolic blood 2022-12-05 14:56:35 128 mm[Hg] [facility] pressure Health pulse rate 2022-12-05 14:56:35 82 /min [facility] BMI (body mass 2022-12-05 14:56:35 98 % [facility] Health Body Mass Index 2022-12-05 14:56:35 38.98 kg/m2 [facility] y [facility] (Ratio) Health height in 2022-12-05 14:56:35 160.02 [facility] centimeters [facility] height percentile 2022-12-05 14:56:35 31 Leg acy [facility] Health weight E&M 2022-12-05 14:56:35 219.25 [lb_av] [facility] weight percentile 2022-12-05 14:56:35 99 Leg [facility] weight in kilograms 2022-12-05 14:56:35 99.66 kg L [facility] E& Health temperature site 2022-12-05 14:56:35 oral [facility] temperature E&M 2022-12-05 14:56:35 98.4 [degF] [facility] [facility] Diastolic blood 2022-10-23 15:07:30 66 mm[Hg] [facility] Systolic blood 2022-10-23 15:07:30 98 mm[Hg] [facility] Health respiratory rate E&M 2022-10-23 15:07:30 20 /min [facility] pulse rate 2022-10-23 15:07:30 66 /[facility]&M 2022-10-23 15:07:30 98.2 [degF] [facility] temperature site 2022-10-23 15:07:30 oral [facility] BMI (body mass 2022-10-23 15:07:30 98 % [facility] index) percentile [facility] Body Mass Index 2022-10-23 15:07:30 38.40 kg/m2 [facility] ([facility] Health weight E&M 2022-10-23 15:07:30 216 [lb_av] [facility] weight percentile 2022-10-23 15:07:30 98 Leg [facility] weight in kilograms 2022-10-23 15:07:30 98.18 kg L [facility] E& Health height percentile 2022-10-23 15:07:30 31 Leg [facility] height E&M 2022-10-23 15:07:30 63 [in_i] [facility] temperature E&M 2022-09-26 12:46:32 98.6 [degF] [facility] Diastolic blood 2022-09-26 12:46:32 75 mm[Hg] [facility] Health Systolic blood 2022-09-26 12:46:32 109 mm[Hg] [facility] Health pulse rate 2022-09-26 12:46:32 82 /min [facility] 2022-09-26 12:46:32 oral [facility] Health BMI (body mass 2022-09-26 12:46:32 98 % [facility] index) percentile Health Body Mass Index 2022-09-26 12:46:32 38.09 kg/m2 [facility] Health weight E&M 2022-09-26 12:46:32 214.25 [lb_av] [facility] Health weight percentile 2022-09-26 12:46:32 98 Leg [facility] Health weight in kilograms 2022-09-26 12:46:32 97.39 kg L [facility] E&M Health height in 2022-09-26 12:46:32 160[facility]02 [facility]M [facility] height percentile 2022-09-26 12:46:32 31 Leg [facility] Diastolic blood 2022-06-20 13:44:48 83 mm[Hg] [facility] pressure Health Systolic blood 2022-06-20 13:44:48 127 mm[Hg] [facility] pressure Health pulse rate 2022-06-20 13:44:48 105 /[facility] temperature E&M 2022-06-20 13:44:48 98.6 [degF] [facility] BMI (body mass 2022-06-20 13:44:48 99 % [facility] Body Mass Index 2022-06-20 13:44:48 39.69 kg/m2 [facility] ([facility] Health weight E&M 2022-06-20 13:44:48 223.25 [lb_av] [facility] Health weight percentile 2022-06-20 13:44:48 99 Leg [facility] weight in kilograms 2022-06-20 13:44:48 101.48 kg L [facility] E&M Health temperature site 2022-06-20 13:44:48 oral [facility] Health height in 2022-06-20 13:44:48 160.02 cm [facility] ommunity centimeters E&M Health height percentile 2022-06-20 13:44:48 31 Leg [facility] Health blood pressure, 2022-04-16 11:31:35 81 mm[Hg] [facility] diastolic, second Health observation blood pressure, 2022-04-16 11:31:35 126 mm[Hg] [facility] systolic, second Health observation pulse rate 2022-04-16 11:31:35 96 /min [facility] Health respiratory rate E&M 2022-04-16 11:31:35 18 /min [facility] temperature site 2022-04-16 11:31:35 tympanic [facility] Health temperature E&M 2022-04-16 11:31:35 97.7 [degF] [facility] weight percentile 2022-04-16 11:31:35 99 [facility] weight in kilograms 2022-04-16 11:31:35 99.1 kg L [facility] E& Health BMI (body mass 2022-04-16 11:31:35 98 % [facility] index) percentile Health Body Mass Index 2022-04-16 11:31:35 37.82 kg/m2 [facility] Health weight E&M 2022-04-16 11:31:35 218.02 [lb_av] [facility] height percentile 2022-04-16 11:31:35 43 Leg [facility] height E&M 2022-04-16 11:31:35 63.78 [in_i] [facility] oxygen saturation, 2022-03-12 13:06:53 97 /min [facility] oximetry Health blood pressure, 2022-03-12 13:06:53 122 mm[Hg] [facility] systolic [facility] blood pressure, 2022-03-12 13:06:53 85 mm[Hg] [facility] diastolic Health respiratory rate E&M 2022-03-12 13:06:53 15 /min [facility] pulse rate 2022-03-12 13:06:53 104 /min [facility] temperature E&M 2022-03-12 13:06:53 98.6 [degF] [facility] height percentile 2022-03-12 13:06:53 31 Leg [facility] height E&M 2022-03-12 13:06:53 62.99 [in_i] [facility] 2022-03-12 13:06:53 98 Leg [facility] weight in kilograms 2022-03-12 13:06:53 94.7 kg L [facility] E& Health weight E&M 2022-03-12 13:06:53 208.34 [lb_av] [facility] temperature site 2022-03-12 13:06:53 [facility] (body mass 2022-03-12 13:06:53 98 % [facility] index) percentile Health Body Mass Index 2022-03-12 13:06:53 37.05 kg/m2 [facility] ([facility] temperature site 2022-03-12 13:06:53 tympanic [facility] oxygen saturation, 2022-01-10 09:19:30 99 /min [facility] oximetry Health blood pressure, 2022-01-10 09:19:30 72 mm[Hg] [facility] diastolic [facility] blood pressure, 2022-01-10 09:19:30 103 mm[Hg] [facility] systolic Health respiratory rate E&M 2022-01-10 09:19:30 20 /min [facility] pulse rate 2022-01-10 09:19:30 85 /min [facility] temperature E&M 2022-01-10 09:19:30 98.4 [degF] [facility] height in 2022-01-10 09:19:30 159.38 cm [facility] centimeters E&M Health height percentile 2022-01-10 09:19:30 28 Leg [facility] weight E&M 2022-01-10 09:19:30 210.40 [lb_av] [facility] weight percentile 2022-01-10 09:19:30 98 Leg [facility] weight in kilograms 2022-01-10 09:19:30 95.64 kg L [facility] E&M [facility] temperature site 2022-01-10 09:19:30 oral [facility] BMI (body mass 2022-01-10 09:19:30 98 % [facility] index) percentile Health Body Mass Index 2022-01-10 09:19:30 37.70 kg/m2 [facility] ([facility] temperature site 2022-01-10 09:19:30 oral [facility] Health height in 2021-06-06 10:33:53 160.02 cm [facility] centimeters E&M Health height percentile 2021-06-06 10:33:53 32 Leg [facility] Health weight E&M 2021-06-06 10:33:53 200 [lb_av] [facility] weight percentile 2021-06-06 10:33:53 98 Leg [facility] Health weight in kilograms 2021-06-06 10:33:53 90.91 kg L [facility] E& Health BMI (body mass 2021-06-06 10:33:53 98 % [facility] Health Body Mass Index 2021-06-06 10:33:53 35.56 kg/m2 [facility] ([facility]) Health blood pressure, 2021-04-01 15:27:23 75 mm[Hg] [facility] diastolic, second Health observation blood pressure, 2021-04-01 15:27:23 121 mm[Hg] [facility] systolic, second Health observation temperature site 2021-04-01 15:27:23 tympanic [facility] Health respiratory rate E&M 2021-04-01 15:27:23 20 /min [facility] oxygen saturation, 2021-04-01 15:27:23 97 /min [facility] oximetry Health pulse rate 2021-04-01 15:27:23 96 /min [facility] temperature E&M 2021-04-01 15:27:23 98 [degF] [facility] Health weight E&M 2021-04-01 15:27:23 203 [lb_av] [facility] weight percentile 2021-04-01 15:27:23 98 Leg [facility] Health weight in kilograms 2021-04-01 15:27:23 92.27 kg L [facility] E& Health height percentile 2021-04-01 15:27:23 25 [facility] height E&M 2021-04-01 15:27:23 62.5 [in_i] [facility] Health temperature site 2021-04-01 15:27:23 tympanic [facility] BMI (body mass 2021-04-01 15:27:23 98 % [facility] index) percentile Health Body Mass Index 2021-04-01 15:27:23 36.67 kg/m2 [facility] Health respiratory rate E&M 2021-03-17 16:51:00 20 /min [facility] oxygen saturation, 2021-03-17 16:51:00 98 /min [facility] oximetry Health pulse rate 2021-03-17 16:51:00 94 /min [facility] blood pressure, 2021-03-17 16:51:00 78 mm[Hg] [facility] diastolic [facility] blood pressure, 2021-03-17 16:51:00 126 mm[Hg] [facility] systolic Health temperature E&M 2021-03-17 16:51:00 97.2 [degF] [facility] height in 2021-03-17 16:51:00 158.75 cm [facility] centimeters E&M Health height percentile 2021-03-17 16:51:00 26 [facility] weight E&M 2021-03-17 16:51:00 203 [lb_av] [facility] weight percentile 2021-03-17 16:51:00 98 [facility] weight in kilograms 2021-03-17 16:51:00 92.27 kg L [facility] E&M Health temperature site 2021-03-17 16:51:00 tympanic [facility] BMI (body mass 2021-03-17 16:51:00 98 % [facility] index) percentile Health Body Mass Index 2021-03-17 16:51:00 36.67 kg/m2 [facility] (Ratio) Health temperature site 2021-03-17 16:51:00 tympanic [facility] blood pressure, 2020-11-30 09:38:03 54 mm[Hg] [facility] diastolic [facility] blood pressure, 2020-11-30 09:38:03 107 mm[Hg] [facility] systolic Health temperature E&M 2020-11-30 09:38:03 98.3 [degF] [facility] respiratory rate E&M 2020-11-30 09:38:03 20 /min [facility] oxygen saturation, 2020-11-30 09:38:03 97 /min [facility] oximetry Health pulse rate 2020-11-30 09:38:03 76 /[facility] height in 2020-11-30 09:38:03 158.75 [facility] centimeters [facility]M Health height percentile 2020-11-30 09:38:03 26 Leg [facility] Health weight E&M 2020-11-30 09:38:03 208 [lb_av] [facility] weight percentile 2020-11-30 09:38:03 98 Leg [facility] weight in kilograms 2020-11-30 09:38:03 94.55 kg L [facility] E&M [facility] temperature site 2020-11-30 09:38:03 oral [facility] BMI (body mass 2020-11-30 09:38:03 99 % [facility] index) [facility] Body Mass Index 2020-11-30 09:38:03 37.57 kg/m2 [facility] Health temperature site 2020-11-30 09:38:03 oral [facility] oxygen saturation, 2020-05-12 11:27:40 97 /min [facility] oximetry Health blood pressure, 2020-05-12 11:27:40 73 mm[Hg] [facility] diastolic Health blood pressure, 2020-05-12 11:27:40 116 mm[Hg] [facility] systolic Health respiratory rate E&M 2020-05-12 11:27:40 18 /min [facility] Health pulse rate 2020-05-12 11:27:40 78 /min [facility] Health temperature E&M 2020-05-12 11:27:40 98.0 [degF] [facility] weight E&M 2020-05-12 11:27:40 196.25 [lb_av] [facility] Health weight percentile 2020-05-12 11:27:40 98 Leg [facility] weight in kilograms 2020-05-12 11:27:40 89.20 kg L [facility] E& Health height percentile 2020-05-12 11:27:40 29 Leg [facility] Health height E&M 2020-05-12 11:27:40 62.7 [in_i] [facility] 2020-05-12 11:27:40 oral [facility] Health BMI (body mass 2020-05-12 11:27:40 98 % [facility] percentile Health Body Mass Index 2020-05-12 11:27:40 35.22 kg/m2 [facility] ([facility] Health temperature site 2020-05-12 11:27:40 oral [facility] oxygen saturation, 2020-05-05 10:17:55 98 /min [facility] oximetry Health blood pressure, 2020-05-05 10:17:55 73 mm[Hg] [facility] diastolic Health blood pressure, 2020-05-05 10:17:55 116 mm[Hg] [facility] systolic Health respiratory rate E&M 2020-05-05 10:17:55 20 /min [facility] pulse rate 2020-05-05 10:17:55 91 /min [facility] temperature E&M 2020-05-05 10:17:55 98.2 [degF] [facility] weight E&M 2020-05-05 10:17:55 192.13 [lb_av] [facility] weight percentile 2020-05-05 10:17:55 97 [facility] weight in kilograms 2020-05-05 10:17:55 87.33 kg L [facility] E&M Health height percentile 2020-05-05 10:17:55 29 [facility] height E&M 2020-05-05 10:17:55 62.7 [in_i] [facility] 2020-05-05 10:17:55 tympanic [facility] Health BMI (body mass 2020-05-05 10:17:55 98 % [facility] index) percentile Health Body Mass Index 2020-05-05 10:17:55 34.48 kg/m2 [facility] ([facility] temperature site 2020-05-05 10:17:55 tympanic [facility] oxygen saturation, 2020-05-03 10:00:19 98 /min [facility] oximetry Health blood pressure, 2020-05-03 10:00:19 74 mm[Hg] [facility] diastolic Health blood pressure, 2020-05-03 10:00:19 121 mm[Hg] [facility] systolic Health respiratory rate E&M 2020-05-03 10:00:19 20 /min [facility] pulse rate 2020-05-03 10:00:19 84 /min [facility] temperature E&M 2020-05-03 10:00:19 97.2 [degF] [facility] height in 2020-05-03 10:00:19 158.75 [facility] centimeters E&M Health height percentile 2020-05-03 10:00:19 27 Leg [facility] Health weight E&M 2020-05-03 10:00:19 196 [lb_av] [facility] weight percentile 2020-05-03 10:00:19 98 Leg [facility] weight in kilograms 2020-05-03 10:00:19 89.09 kg L [facility] temperature site 2020-05-03 10:00:19 [facility]anic [facility] BMI (body mass 2020-05-03 10:00:19 98 % [facility] percentile Health Body Mass Index 2020-05-03 10:00:19 35.41 kg/m2 [facility] Health temperature site 2020-05-03 10:00:19 [facility], 2020-01-24 13:25:51 98 /min [facility] oximetry Health blood pressure, 2020-01-24 13:25:51 65 mm[Hg] [facility] diastolic Health blood pressure, 2020-01-24 13:25:51 113 mm[Hg] [facility] systolic Health respiratory rate E&M 2020-01-24 13:25:51 18 /min [facility] pulse rate 2020-01-24 13:25:51 86 /min [facility] temperature E&M 2020-01-24 13:25:51 98.2 [degF] [facility] height in 2020-01-24 13:25:51 159.00 cm [facility] centimeters E&M Health height percentile 2020-01-24 13:25:51 29 Leg [facility] Health weight E&M 2020-01-24 13:25:51 180.13 [lb_av] [facility] weight percentile 2020-01-24 13:25:51 96 Leg [facility] Health weight in kilograms 2020-01-24 13:25:51 81.88 kg L [facility] E&M Health temperature site 2020-01-24 13:25:51 oral [facility] Health Body Mass Index 2020-01-24 13:25:51 32.43 kg/m2 [facility] Health BMI (body mass 2020-01-24 13:25:51 97 % [facility] index) percentile Health temperature site 2020-01-24 13:25:51 oral [facility] temperature E&M 2020-01-18 14:03:14 98.8 [degF] [facility] temperature site 2020-01-18 14:03:14 axillary [facility] temperature site 2020-01-18 14:03:14 axillary [facility] blood pressure, 2019-09-08 11:53:42 78 mm[Hg] [facility] diastolic Health blood pressure, 2019-09-08 11:53:42 117 mm[Hg] [facility] systolic Health respiratory rate E&M 2019-09-08 11:53:42 18 /min [facility] oxygen saturation, 2019-09-08 11:53:42 98 /min [facility] oximetry Health pulse rate 2019-09-08 11:53:42 70 /min [facility] temperature E&M 2019-09-08 11:53:42 97.2 [degF] [facility] height in 2019-09-08 11:53:42 159.00 [facility] centimeters E& Health weight E&M 2019-09-08 11:53:42 175 [lb_av] [facility] weight in kilograms 2019-09-08 11:53:42 79.55 kg L [facility] E& Health height percentile 2019-09-08 11:53:42 30 Leg [facility] Health weight percentile 2019-09-08 11:53:42 96 Leg [facility] temperature site 2019-09-08 11:53:42 tympanic [facility] Health Body Mass Index 2019-09-08 11:53:42 31.51 kg/m2 [facility] Health BMI (body mass 2019-09-08 11:53:42 97 % [facility] index) percentile Health temperature site 2019-09-08 11:53:42 tympanic [facility] Heart Rate 2019-06-22 23:00:00 [facility] Respitory Rate 2019-06-22 23:00:00 [facility] Systolic (mm Hg) 2019-06-22 23:00:00 [facility] Diastolic (mm Hg) 2019-06-22 23:00:00 Mem [facility] Temperature Oral (F) 2019-06-22 21:39:00 98.6 F [facility] Heart Rate 2019-06-22 21:39:00 [facility] Respitory Rate 2019-06-22 21:39:00 [facility] Systolic (mm Hg) 2019-06-22 19:24:00 Alejo [facility] Diastolic (mm Hg) 2019-06-22 19:24:00 Mem [facility] Heart Rate 2019-06-22 19:24:00 [facility] Respitory Rate 2019-06-22 19:24:00 [facility] Temperature Oral (F) 2019-06-22 19:24:00 102.3 F [facility] Weight 2019-06-22 19:24:00 [facility] respiratory rate E&M 2019-04-28 11:57:37 20 /min [facility] blood pressure, 2019-04-28 11:57:37 70 mm[Hg] [facility] diastolic Health blood pressure, 2019-04-28 11:57:37 109 mm[Hg] [facility] systolic Health oxygen saturation, 2019-04-28 11:57:37 98 /min [facility] oximetry Health pulse rate 2019-04-28 11:57:37 74 /min [facility] temperature E&M 2019-04-28 11:57:37 98.2 [degF] [facility] Health height in 2019-04-28 11:57:37 160.02 [facility] E&M Health weight E&M 2019-04-28 11:57:37 166.13 [lb_av] [facility] weight in kilograms 2019-04-28 11:57:37 75.51 kg L [facility] E&M Health height percentile 2019-04-28 11:57:37 37 Leg [facility] Health weight percentile 2019-04-28 11:57:37 94 Leg [facility] temperature site 2019-04-28 11:57:37 oral [facility] BMI (body mass 2019-04-28 11:57:37 96 % [facility] percentile Health Body Mass Index 2019-04-28 11:57:37 29.53 kg/m2 [facility] ([facility] site 2019-04-28 11:57:37 [facility] oxygen saturation, 2019-03-03 14:10:30 97 /min [facility] oximetry Health blood pressure, 2019-03-03 14:10:30 63 mm[Hg] [facility] diastolic [facility] blood pressure, 2019-03-03 14:10:30 110 mm[Hg] [facility] systolic Health respiratory rate E&M 2019-03-03 14:10:30 20 /min [facility] pulse rate 2019-03-03 14:10:30 73 /min [facility] Health temperature E&M 2019-03-03 14:10:30 97.6 [degF] [facility] height in 2019-03-03 14:10:30 160.02 cm [facility] centimeters E&M Health weight E&M 2019-03-03 14:10:30 162.25 [lb_av] [facility] weight in kilograms 2019-03-03 14:10:30 73.75 kg L [facility] E&M Health height percentile 2019-03-03 14:10:30 37 Leg [facility] Health weight percentile 2019-03-03 14:10:30 94 [facility] temperature site 2019-03-03 14:10:30 oral [facility] Health BMI (body mass 2019-03-03 14:10:30 96 % [facility] percentile Health Body Mass Index 2019-03-03 14:10:30 28.85 kg/m2 [facility] site 2019-03-03 14:10:30 oral [facility] oxygen saturation, 2018-11-25 17:03:37 98 /min [facility] oximetry Health blood pressure, 2018-11-25 17:03:37 67 mm[Hg] [facility] diastolic Health blood pressure, 2018-11-25 17:03:37 101 mm[Hg] [facility] systolic Health respiratory rate E&M 2018-11-25 17:03:37 20 /min [facility] pulse rate 2018-11-25 17:03:37 80 /min [facility] Health temperature E&M 2018-11-25 17:03:37 97.4 [degF] [facility] height in 2018-11-25 17:03:37 158.75 cm [facility] centimeters E&M Health weight E&M 2018-11-25 17:03:37 158.25 [lb_av] [facility] weight in kilograms 2018-11-25 17:03:37 71.93 kg L [facility] E& Health height percentile 2018-11-25 17:03:37 31 Leg [facility] Health weight percentile 2018-11-25 17:03:37 93 Leg [facility] temperature site 2018-11-25 17:03:37 oral [facility] Health Body Mass Index 2018-11-25 17:03:37 28.59 kg/m2 [facility] Health BMI (body mass 2018-11-25 17:03:37 96 % [facility] index) percentile Health temperature site 2018-11-25 17:03:37 oral [facility] Health Respitory Rate 2018-09-16 07:10:00 [facility] Heart Rate 2018-09-16 07:10:00 [facility] Systolic (mm Hg) 2018-09-16 07:10:00 [facility] Diastolic (mm Hg) 2018-09-16 07:10:00 [facility] Temperature Oral (F) 2018-09-16 07:10:00 98.0 F [facility] Respitory Rate 2018-09-16 02:56:00 [facility] Temperature Oral (F) 2018-09-16 02:56:00 97.9 F [facility] Weight 2018-09-16 02:56:00 [facility] Heart Rate 2018-09-16 02:56:00 [facility] Systolic (mm Hg) 2018-09-16 02:56:00 Alejo Bustos Diastolic (mm Hg) 2018-09-16 02:56:00 Mem jose Bustos blood pressure, 2018-08-25 14:29:58 72 mm[Hg] [facility] observation blood pressure, 2018-08-25 14:29:58 121 mm[Hg] [facility] systolic, second Health observation oxygen saturation, 2018-08-25 14:29:58 98 /min [facility] oximetry Health respiratory rate E&M 2018-08-25 14:29:58 20 /min [facility] pulse rate 2018-08-25 14:29:58 99 /min [facility] Health temperature E&M 2018-08-25 14:29:58 99.8 [degF] [facility] Health height in 2018-08-25 14:29:58 158.75 cm [facility] centimeters E&M Health weight E&M 2018-08-25 14:29:58 154.50 [lb_av] [facility] weight in kilograms 2018-08-25 14:29:58 70.23 kg L [facility] E& Health height percentile 2018-08-25 14:29:58 33 [facility] weight percentile 2018-08-25 14:29:58 92 [facility] temperature site 2018-08-25 14:29:58 tympanic [facility] Body Mass Index 2018-08-25 14:29:58 27.91 kg/m2 [facility] ([facility] BMI (body mass 2018-08-25 14:29:58 95 % [facility] index) percentile Health temperature site 2018-08-25 14:29:58 tympanic [facility] oxygen saturation, 2017-12-03 15:03:32 98 /min [facility] oximetry Health blood pressure, 2017-12-03 15:03:32 58 mm[Hg] [facility] diastolic Health blood pressure, 2017-12-03 15:03:32 96 mm[Hg] [facility] systolic Health respiratory rate E&M 2017-12-03 15:03:32 20 /min [facility] pulse rate 2017-12-03 15:03:32 77 /min [facility] Health temperature E&M 2017-12-03 15:03:32 98.0 [degF] [facility] height in 2017-12-03 15:03:32 157.99 [facility] E&M Health weight E&M 2017-12-03 15:03:32 159.50 [lb_av] [facility] in kilograms 2017-12-03 15:03:32 72.50 kg L [facility] E&M Health height percentile 2017-12-03 15:03:32 35 Leg [facility] Health weight percentile 2017-12-03 15:03:32 95 Leg [facility] temperature site 2017-12-03 15:03:32 oral L[facility] Health BMI (body mass 2017-12-03 15:03:32 97 % [facility] Health Body Mass Index 2017-12-03 15:03:32 29.09 kg/m2 [facility] ([facility] Health temperature site 2017-12-03 15:03:32 [facility] weight E&M 2017-10-30 10:00:05 158 [lb_av] [facility] Health weight in kilograms 2017-10-30 10:00:05 71.82 kg L [facility] E& Health height E&M 2017-10-30 10:00:05 62 [in_i] [facility] pressure, 2017-10-30 10:00:05 79 mm[Hg] [facility] diastolic Health blood pressure, 2017-10-30 10:00:05 116 mm[Hg] [facility] systolic Health temperature E&M 2017-10-30 10:00:05 98.5 [degF] [facility] pulse rate 2017-10-30 10:00:05 90 /min [facility] oxygen [facility], 2017-10-30 10:00:05 97 /min [facility] oximetry Health weight percentile 2017-10-30 10:00:05 95 Leg [facility] Health height percentile 2017-10-30 10:00:05 33 Leg [facility] temperature site 2017-10-30 10:00:05 [facility]anic [facility] BMI (body mass 2017-10-30 10:00:05 97 % [facility] Health Body Mass Index 2017-10-30 10:00:05 29.00 kg/m2 [facility] ([facility] temperature site 2017-10-30 10:00:05 tympanic L[facility] Health respiratory rate E&M 2017-10-17 10:40:28 18 /min [facility] blood pressure, 2017-10-17 10:40:28 59 mm[Hg] [facility] diastolic Health blood pressure, 2017-10-17 10:40:28 121 mm[Hg] [facility] systolic Health temperature E&M 2017-10-17 10:40:28 98.2 [degF] [facility] oxygen saturation, 2017-10-17 10:40:28 98 /min [facility] oximetry Health pulse rate 2017-10-17 10:40:28 90 /min [facility] Health height in 2017-10-17 10:40:28 157.48 cm [facility] centimeters E&M Health weight E&M 2017-10-17 10:40:28 157.50 [lb_av] [facility] weight in kilograms 2017-10-17 10:40:28 71.59 kg L [facility] E&M Health height percentile 2017-10-17 10:40:28 33 [facility] weight percentile 2017-10-17 10:40:28 95 Leg [facility] temperature site 2017-10-17 10:40:28 tympanic Lega [facility] Health BMI (body mass 2017-10-17 10:40:28 97 % [facility] index) percentile Health Body Mass Index 2017-10-17 10:40:28 28.91 kg/m2 [facility] ([facility] temperature site 2017-10-17 10:40:28 tympanic Lega [facility] Health oxygen saturation, 2017-08-15 12:21:12 98 /min [facility] oximetry Health blood pressure, 2017-08-15 12:21:12 67 mm[Hg] [facility] diastolic Health blood pressure, 2017-08-15 12:21:12 112 mm[Hg] [facility] systolic Health respiratory rate E&M 2017-08-15 12:21:12 22 /min [facility] Health pulse rate 2017-08-15 12:21:12 91 [facility] E&M 2017-08-15 12:21:12 97.7 [degF] [facility] weight E&M 2017-08-15 12:21:12 154.38 [lb_av] [facility] weight in kilograms 2017-08-15 12:21:12 70.17 kg L [facility] E&M Health height E&M 2017-08-15 12:21:12 62 [in_i] [facility] weight percentile 2017-08-15 12:21:12 94 Leg [facility] height percentile 2017-08-15 12:21:12 36 Leg [facility] temperature site 2017-08-15 12:21:12 oral Lega [facility] Health BMI (body mass 2017-08-15 12:21:12 96 % [facility] index) percentile [facility] Body Mass Index 2017-08-15 12:21:12 28.34 kg/m2 [facility] ([facility] temperature site 2017-08-15 12:21:12 oral [facility] Health blood pressure, 2017-07-18 10:17:05 57 mm[Hg] [facility] diastolic Health blood pressure, 2017-07-18 10:17:05 108 mm[Hg] [facility] systolic Health oxygen saturation, 2017-07-18 10:17:05 98 /min [facility] oximetry Health respiratory rate E&M 2017-07-18 10:17:05 21 /min [facility] pulse rate 2017-07-18 10:17:05 78 /min [facility] Health temperature E&M 2017-07-18 10:17:05 98.1 [degF] [facility] height in 2017-07-18 10:17:05 157.48 [facility] centimeters [facility] weight E&M 2017-07-18 10:17:05 152.25 [lb_av] [facility] weight in kilograms 2017-07-18 10:17:05 69.20 kg L [facility] E& Health height percentile 2017-07-18 10:17:05 37 Leg [facility] Health weight percentile 2017-07-18 10:17:05 94 [facility] temperature site 2017-07-18 10:17:05 oral Lega [facility] Health BMI (body mass 2017-07-18 10:17:05 96 % [facility] index[facility] percentile Health Body Mass Index 2017-07-18 10:17:05 27.95 kg/m2 [facility] (Ratio) [facility] site 2017-07-18 10:17:05 oral Lega [facility] Health oxygen saturation, 2017-03-28 10:47:41 98 /min [facility] oximetry Health blood pressure, 2017-03-28 10:47:41 74 mm[Hg] [facility] diastolic Health blood pressure, 2017-03-28 10:47:41 115 mm[Hg] [facility] systolic Health pulse rate 2017-03-28 10:47:41 72 /min [facility] temperature E&M 2017-03-28 10:47:41 98.1 [degF] [facility] height in 2017-03-28 10:47:41 157.48 cm [facility] centimeters E&M Health weight E&M 2017-03-28 10:47:41 147.25 [lb_av] [facility] weight in kilograms 2017-03-28 10:47:41 66.93 kg L [facility] E&M Health height percentile 2017-03-28 10:47:41 43 [facility] weight percentile 2017-03-28 10:47:41 93 [facility] temperature site 2017-03-28 10:47:41 oral Lega [facility] Health BMI (body mass 2017-03-28 10:47:41 95 % [facility] index) percentile Health Body Mass Index 2017-03-28 10:47:41 27.03 kg/m2 [facility] (Ratio) [facility] site 2017-03-28 10:47:41 oral [facility] temperature E&M 2017-01-08 11:00:13 97.7 [degF] [facility] Health blood pressure, 2017-01-08 11:00:13 76 mm[Hg] [facility] diastolic Health blood pressure, 2017-01-08 11:00:13 114 mm[Hg] [facility] systolic Health pulse rate 2017-01-08 11:00:13 77 /min [facility] oxygen saturation, 2017-01-08 11:00:13 98 /min [facility] oximetry Health height in 2017-01-08 11:00:13 157.48 [facility] centimeters [facility] weight E&M 2017-01-08 11:00:13 142.25 [lb_av] [facility] Health weight in kilograms 2017-01-08 11:00:13 64.66 kg L [facility] E&M Health height percentile 2017-01-08 11:00:13 47 Leg [facility] Health weight percentile 2017-01-08 11:00:13 93 [facility] temperature site 2017-01-08 11:00:13 tympanic [facility] BMI (body mass 2017-01-08 11:00:13 95 % [facility] index) percentile Health Body Mass Index 2017-01-08 11:00:13 26.11 kg/m2 [facility] ([facility] Health temperature site 2017-01-08 11:00:13 tympanic [facility] Health weight E&M 2017-01-03 14:16:51 146 [lb_av] [facility] weight in kilograms 2017-01-03 14:16:51 66.36 kg L [facility] E& Health height E&M 2017-01-03 14:16:51 62.0 [in_i] [facility] weight percentile 2017-01-03 14:16:51 94 [facility] height percentile 2017-01-03 14:16:51 48 [facility] BMI (body mass 2017-01-03 14:16:51 95 % [facility] index) percentile Health Body Mass Index 2017-01-03 14:16:51 26.80 kg/m2 [facility] ([facility] Health pulse rate 2016-12-20 10:59:58 91 /min [facility] oxygen saturation, 2016-12-20 10:59:58 99 /min [facility] oximetry Health blood pressure, 2016-12-20 10:59:58 67 mm[Hg] [facility] diastolic Health blood pressure, 2016-12-20 10:59:58 107 mm[Hg] Leg[facility] systolic Health temperature E&M 2016-12-20 10:59:58 97.5 [degF] [facility] Health height in 2016-12-20 10:59:58 158.12 cm [facility] centimeters E[facility]M Health weight E&M 2016-12-20 10:59:58 144.50 [lb_av] [facility] weight in kilograms 2016-12-20 10:59:58 65.68 kg [facility] height percentile 2016-12-20 10:59:58 52 Leg [facility] Health weight percentile 2016-12-20 10:59:58 94 Leg [facility] temperature site 2016-12-20 10:59:58 oral Lega [facility] Health BMI (body mass 2016-12-20 10:59:58 95 % [facility] index) percentile Health Body Mass Index 2016-12-20 10:59:58 26.31 kg/m2 [facility] ([facility] site 2016-12-20 10:59:58 oral Lega [facility] Health pulse rate 2015-12-01 13:13:01 73 /min [facility] blood pressure, 2015-12-01 13:13:01 71 mm[Hg] [facility] diastolic Health blood pressure, 2015-12-01 13:13:01 112 mm[Hg] Leg[facility] systolic Health temperature E&M 2015-12-01 13:13:01 98.5 [degF] [facility] height in 2015-12-01 13:13:01 151.77 cm [facility] centimeters E&M Health weight E&M 2015-12-01 13:13:01 122.25 [lb_av] [facility] Health weight in kilograms 2015-12-01 13:13:01 55.57 kg L [facility] E&M Health height percentile 2015-12-01 13:13:01 50 Leg [facility] Health weight percentile 2015-12-01 13:13:01 89 Leg [facility] temperature site 2015-12-01 13:13:01 tympanic [facility] BMI (body mass 2015-12-01 13:13:01 93 % [facility] index) percentile Health Body Mass Index 2015-12-01 13:13:01 24.16 kg/m2 [facility] (Ratio) [facility] temperature site 2015-12-01 13:13:01 tympanic Lega [facility] Health pulse rate 2015-09-08 11:42:07 91 /[facility] blood pressure, 2015-09-08 11:42:07 63 mm[Hg] [facility] diastolic Health blood pressure, 2015-09-08 11:42:07 105 mm[Hg] Leg[facility] systolic Health temperature E&M 2015-09-08 11:42:07 98.0 [degF] Leg[facility] Health height in 2015-09-08 11:42:07 151.13 [facility] E[facility]M Health weight E&M 2015-09-08 11:42:07 115 [lb_av] [facility] weight in kilograms 2015-09-08 11:42:07 52.27 kg [facility] height percentile 2015-09-08 11:42:07 56 Leg [facility] Health weight percentile 2015-09-08 11:42:07 86 Leg [facility] temperature site 2015-09-08 11:42:07 tympanic [facility] BMI (body mass 2015-09-08 11:42:07 90 % [facility] index) percentile Health Body Mass Index 2015-09-08 11:42:07 22.92 kg/m2 [facility] ([facility] Health temperature site 2015-09-08 11:42:07 tympanic Lega [facility] Health pulse rate 2015-06-08 10:52:59 92 /min [facility] blood pressure, 2015-06-08 10:52:59 65 mm[Hg] Leg[facility] diastolic Health blood pressure, 2015-06-08 10:52:59 115 mm[Hg] Leg[facility] systolic Health oxygen saturation, 2015-06-08 10:52:59 99 /min [facility] oximetry Health temperature E&M 2015-06-08 10:52:59 98.2 [degF] Leg[facility] Health height in 2015-06-08 10:52:59 148.59 [facility] E[facility]M Health weight E&M 2015-06-08 10:52:59 105.38 [lb_av] [facility] Health weight in kilograms 2015-06-08 10:52:59 47.90 kg L [facility] E&M Health height percentile 2015-06-08 10:52:59 52 Leg [facility] Health weight percentile 2015-06-08 10:52:59 80 Leg [facility] temperature site 2015-06-08 10:52:59 tympanic [facility] BMI (body mass 2015-06-08 10:52:59 87 % [facility] index) percentile Health Body Mass Index 2015-06-08 10:52:59 21.73 kg/m2 [facility] ([facility] site 2015-06-08 10:52:59 tympanic [facility] pulse rate 2015-03-20 11:11:58 67 /min [facility] blood pressure, 2015-03-20 11:11:58 92 mm[Hg] [facility] diastolic [facility] blood pressure, 2015-03-20 11:11:58 103 mm[Hg] [facility] systolic Health temperature E&M 2015-03-20 11:11:58 98.6 [degF] [facility] height in 2015-03-20 11:11:58 134.62 cm [facility] centimeters E&M Health weight E&M 2015-03-20 11:11:58 101 [lb_av] [facility] weight in kilograms 2015-03-20 11:11:58 45.91 kg L [facility] E&M Health height percentile 2015-03-20 11:11:58 5 Leg [facility] weight percentile 2015-03-20 11:11:58 78 Leg [facility] temperature site 2015-03-20 11:11:58 tympanic [facility] BMI (body mass 2015-03-20 11:11:58 96 % [facility] index) percentile Health Body Mass Index 2015-03-20 11:11:58 25.37 kg/m2 [facility] (Ratio[facility] site 2015-03-20 11:11:58 tympanic L[facility] Health pulse rate 2014-12-19 12:07:14 111 /min [facility] blood pressure, 2014-12-19 12:07:14 72 mm[Hg] Leg[facility] diastolic [facility] blood pressure, 2014-12-19 12:07:14 104 mm[Hg] Legac [facility] systolic Health temperature E&M 2014-12-19 12:07:14 100.5 [degF] Legac y [facility] Health height in 2014-12-19 12:07:14 134.62 cm [facility] centimeters E&M Health weight E&M 2014-12-19 12:07:14 93.50 [lb_av] [facility] weight in kilograms 2014-12-19 12:07:14 42.50 kg L [facility] E& Health height percentile 2014-12-19 12:07:14 8 Leg [facility] Health weight percentile 2014-12-19 12:07:14 71 Leg [facility] temperature site 2014-12-19 12:07:14 tympanic Lega [facility] Health BMI (body mass 2014-12-19 12:07:14 94 % [facility] index) percentile Health Body Mass Index 2014-12-19 12:07:14 23.49 kg/m2 [facility] ([facility] temperature site 2014-12-19 12:07:14 tympanic Lega [facility] Health pulse rate 2014-12-06 12:29:45 89 /min [facility] blood pressure, 2014-12-06 12:29:45 58 mm[Hg] Leg[facility] diastolic Health blood pressure, 2014-12-06 12:29:45 110 mm[Hg] Legac [facility] systolic Health temperature E&M 2014-12-06 12:29:45 98.6 [degF] [facility] height in 2014-12-06 12:29:45 141.60 cm [facility] centimeters E&M Health weight E&M 2014-12-06 12:29:45 95 [lb_av] [facility] Health weight in kilograms 2014-12-06 12:29:45 43.18 kg L [facility] E& Health height percentile 2014-12-06 12:29:45 34 Leg [facility] Health weight percentile 2014-12-06 12:29:45 74 Leg [facility] temperature site 2014-12-06 12:29:45 tympanic Lega [facility] Health BMI (body mass 2014-12-06 12:29:45 88 % [facility] index) percentile Health Body Mass Index 2014-12-06 12:29:45 21.57 kg/m2 [facility] (Ratio) [facility] temperature site 2014-12-06 12:29:45 tympanic Lega [facility] Health oxygen saturation, 2014-08-23 10:58:37 99 /min [facility] oximetry Health blood pressure, 2014-08-23 10:58:37 60 mm[Hg] Leg[facility] diastolic Health blood pressure, 2014-08-23 10:58:37 93 mm[Hg] Legac [facility] systolic Health pulse rate 2014-08-23 10:58:37 75 /min [facility] Health temperature E&M 2014-08-23 10:58:37 98.4 [degF] [facility] height in 2014-08-23 10:58:37 139.70 cm [facility] centimeters E&M Health weight E&M 2014-08-23 10:58:37 91 [lb_av] [facility] Health weight in kilograms 2014-08-23 10:58:37 41.36 [facility] height percentile 2014-08-23 10:58:37 34 Leg [facility] Health weight percentile 2014-08-23 10:58:37 73 Leg [facility] temperature site 2014-08-23 10:58:37 tympanic Lega [facility] Health BMI (body mass 2014-08-23 10:58:37 88 % [facility] index) percentile [facility] Body Mass Index 2014-08-23 10:58:37 21.23 kg/m2 [facility] (Ratio) [facility] temperature site 2014-08-23 10:58:37 tympanic Lega [facility] Health pulse rate 2014-06-22 11:44:39 105 /min [facility] Health blood pressure, 2014-06-22 11:44:39 73 mm[Hg] Leg[facility] diastolic Health blood pressure, 2014-06-22 11:44:39 107 mm[Hg] Legac [facility] systolic Health height in 2014-06-22 11:44:39 139.07 cm [facility] centimeters E[facility]M Health weight E&M 2014-06-22 11:44:39 88 [lb_av] [facility] Health weight in kilograms 2014-06-22 11:44:39 40 kg L [facility] E&M Health temperature E&M 2014-06-22 11:44:39 98.5 [degF] [facility] height percentile 2014-06-22 11:44:39 36 Leg [facility] Health weight percentile 2014-06-22 11:44:39 71 [facility] temperature site 2014-06-22 11:44:39 [facility]mpanic [facility] BMI (body mass 2014-06-22 11:44:39 86 % [facility] index) percentile Health Body Mass Index 2014-06-22 11:44:39 20.71 kg/m2 [facility] (Ratio[facility] site 2014-06-22 11:44:39 tympanic [facility] oxygen saturation, 2014-06-15 13:06:39 99 /min [facility] oximetry Health pulse rate 2014-06-15 13:06:39 118 /min [facility] blood pressure, 2014-06-15 13:06:39 63 mm[Hg] [facility] diastolic Health blood pressure, 2014-06-15 13:06:39 117 mm[Hg] [facility] systolic Health height in 2014-06-15 13:06:39 138.43 cm [facility] centimeters E&M Health weight E&M 2014-06-15 13:06:39 87.50 [lb_av] [facility] weight in kilograms 2014-06-15 13:06:39 39.77 kg L [facility] E&M Health temperature E&M 2014-06-15 13:06:39 98.0 [degF] [facility] Health height percentile 2014-06-15 13:06:39 33 Leg [facility] weight percentile 2014-06-15 13:06:39 71 [facility] temperature site 2014-06-15 13:06:39 tympanic Lega [facility] Health BMI (body mass 2014-06-15 13:06:39 87 % [facility] index) percentile Health Body Mass Index 2014-06-15 13:06:39 20.79 kg/m2 [facility] ([facility] temperature site 2014-06-15 13:06:39 tympanic [facility] Health respiratory rate E&M 2013-11-17 11:35:21 24 /min [facility] pulse rate 2013-11-17 11:35:21 88 /min [facility] blood pressure, 2013-11-17 11:35:21 69 mm[Hg] [facility] diastolic Health blood pressure, 2013-11-17 11:35:21 111 mm[Hg] [facility] [facility] systolic Health temperature E&M 2013-11-17 11:35:21 98.0 [degF] [facility] height in 2013-11-17 11:35[facility]21 [facility] weight E&M 2013-11-17 11:35:21 81.38 [lb_av] [facility] weight in kilograms 2013-11-17 11:35:21 36.99 kg L [facility] E& Health height percentile 2013-11-17 11:35:21 29 Leg [facility] weight percentile 2013-11-17 11:35:21 71 Leg [facility] temperature site 2013-11-17 11:35:21 tympanic [facility] BMI (body mass 2013-11-17 11:35:21 87 % [facility] index) percentile [facility] Body Mass Index 2013-11-17 11:35:21 20.44 kg/m2 [facility] temperature site 2013-11-17 11:35:21 tympanic [facility] pulse rate 2013 16:25:07 67 /min [facility] blood pressure, 2013 16:25:07 56 mm[Hg] [facility] diastolic Health blood pressure, 2013 16:25:07 96 mm[Hg] [facility] systolic Health temperature E&M 2013 16:25:07 97.8 [degF] [facility] weight E&M 2013 16:25:07 82 [facility]lb[facility]av] [facility] weight in kilograms 2013 16:25:07 37.27 kg L [facility] E&M Health height E&M 2013 16:25:07 53 [in_i] [facility] weight percentile 2013 16:25:07 73 Leg [facility] height percentile 2013 16:25:07 31 Leg [facility] temperature site 2013 16:25:07 tympanic [facility] BMI (body mass 2013 16:25:07 88 % [facility] index) percentile [facility] Body Mass Index 2013 16:25:07 20.60 kg/m2 [facility] (Ratio) [facility] temperature site 2013 16:25:07 [facility]mpanic [facility] temperature E&M 2013-08-19 15:36:33 97.8 [degF] [facility] height in 2013-08-19 15:36:33 133.35 [facility] E[facility]M Health weight E&M 2013-08-19 15:36:33 52.31 [lb_av] [facility] weight in kilograms 2013-08-19 15:36:33 23.78 [facility] pulse rate 2013-08-19 15:36:33 108 /min [facility] blood pressure, 2013-08-19 15:36:33 65 mm[Hg] [facility] diastolic [facility] blood pressure, 2013-08-19 15:36:33 107 mm[Hg] [facility] systolic Health height percentile 2013-08-19 15:36:33 29 Leg [facility] weight percentile 2013-08-19 15:36:33 4 Leg [facility] Body Mass Index 2013-08-19 15:36:33 13.39 kg/m2 [facility] (Ratio) [facility] temperature site 2013-08-19 15:36:33 [facility]mpanic [facility] temperature site 2013-08-19 15:36:33 [facility]anic [facility] BMI (body mass 2013-08-19 15:36:33 2 % [facility] index) percentile Health pulse rate 2013-08-04 12:31:29 77 /min [facility] Health height in 2013-08-04 12:31:29 134.62 cm [facility] centimeters E&M Health temperature E&M 2013-08-04 12:31:29 97.6 [degF] [facility] blood pressure, 2013-08-04 12:31:29 61 mm[Hg] Leg[facility] diastolic Health blood pressure, 2013-08-04 12:31:29 100 mm[Hg] Leg[facility] systolic Health weight E&M 2013-08-04 12:31:29 74.13 [lb_av] [facility] weight in kilograms 2013-08-04 12:31:29 33.70 kg L [facility] E& Health height percentile 2013-08-04 12:31:29 37 Leg [facility] Health weight percentile 2013-08-04 12:31:29 61 Leg [facility] Health BMI (body mass 2013-08-04 12:31:29 76 % [facility] index) percentile Health Body Mass Index 2013-08-04 12:31:29 18.62 kg/m2 [facility] (Ratio) Health temperature site 2013-08-04 12:31:29 tympanic [facility] Health temperature site 2013-08-04 12:31:29 tympanic [facility] Health pulse rate 2013-05-14 16:15:05 90 /min [facility] temperature E&M 2013-05-14 16:15:05 99.5 [degF] [facility] weight E&M 2013-05-14 16:15:05 75 [lb_av] [facility] weight in kilograms 2013-05-14 16:15:05 34.09 kg L [facility] E& Health weight percentile 2013-05-14 16:15:05 68 Leg [facility] pulse rate 2013-02-11 10:47:43 84 /min [facility] blood pressure, 2013-02-11 10:47:43 68 mm[Hg] Leg[facility] diastolic Health blood pressure, 2013-02-11 10:47:43 103 mm[Hg] Leg[facility] systolic Health height in 2013-02-11 10:47:43 134.62 cm [facility] centimeters E&M Health weight E&M 2013-02-11 10:47:43 74 [lb_av] [facility] Health weight in kilograms 2013-02-11 10:47:43 33.64 kg L [facility] E& Health temperature E&M 2013-02-11 10:47:43 97.4 [degF] Leg[facility] Health height percentile 2013-02-11 10:47:43 52 Leg [facility] Health weight percentile 2013-02-11 10:47:43 72 Leg [facility] BMI (body mass 2013-02-11 10:47:43 79 % [facility] index) percentile Health Body Mass Index 2013-02-11 10:47:43 18.59 kg/m2 [facility] temperature site 2013-02-11 10:47:43 tympanic [facility] Health temperature site 2013-02-11 10:47:43 tympanic [facility] Health pulse rate 2012-11-05 17:35:47 78 /min [facility] blood pressure, 2012-11-05 17:35:47 59 mm[Hg] [facility] diastolic Health blood pressure, 2012-11-05 17:35:47 108 mm[Hg] [facility] systolic Health temperature E&M 2012-11-05 17:35:47 98.2 [degF] [facility] Health weight E&M 2012-11-05 17:35:47 72 [lb_av] [facility] Health weight in kilograms 2012-11-05 17:35:47 32.73 kg L [facility] E&M Health height E&M 2012-11-05 17:35:47 52.5 [in_i] [facility] Health weight percentile 2012-11-05 17:35:47 73 Leg [facility] height percentile 2012-11-05 17:35:47 52 Leg [facility] BMI (body mass 2012-11-05 17:35:47 80 % [facility] index) percentile Health Body Mass Index 2012-11-05 17:35:47 18.43 kg/m2 [facility] (Ratio[facility] Health height in 2012-09-30 13:02:52 130.18 cm [facility] ommunity centimeters E&M Health weight E&M 2012-09-30 13:02:52 72.50 [lb_av] [facility] weight in kilograms 2012-09-30 13:02:52 32.95 kg L [facility] E&M Health pulse rate 2012-09-30 13:02:52 74 /min [facility] Health blood pressure, 2012-09-30 13:02:52 59 mm[Hg] [facility] diastolic Health blood pressure, 2012-09-30 13:02:52 112 mm[Hg] [facility] systolic Health temperature E&M 2012-09-30 13:02:52 98.6 [degF] [facility] height percentile 2012-09-30 13:02:52 35 Leg [facility] weight percentile 2012-09-30 13:02:52 76 Leg [facility] BMI (body mass 2012-09-30 13:02:52 88 % [facility] index) percentile Health Body Mass Index 2012-09-30 13:02:52 19.48 kg/m2 [facility] (Ratio) Health temperature site 2012-09-30 13:02:52 [facility]anic [facility] temperature site 2012-09-30 13:02:52 [facility]anic [facility] Procedures Procedure Date / Time Performing Clinician Source Performed Most recent diastolic 2023-03-19 22:42:16 [facility]-89 mm Health Hg Most recent systolic 2023-03-19 22:42:16 [facility] blood pressure less than Health 130 mm Hg Most recent HbA1c is 2023-03-19 22:41:44 EnricoCarmencita [facility] less than 7.0% Health Venipuncture 2023-03-17 14:40:27 Carmencita [facility] Health Most recent HbA1c is 2022-12-12 17:05:52 Woody Chew [facility] less than 7.0% [facility] Both Nutrition / 2022-12-05 16:27:10 Kate Casillas [facility] Exercise Counseling Health (Obese) Most recent diastolic 2022-12-05 16:17:00 Kate Casillas [facility] blood pressure less than Health 80 mm Hg Most recent systolic 2022-12-05 16:17:00 Kate Casillas [facility] blood pressure less than Health 130 mm Hg Most recent HbA1c is 2022-12-05 16:15:49 Kate Casillas [facility] less than 7.0% Health Most recent diastolic 2022-10-23 16:08:42 Tarun Costa [facility] blood pressure less than Health 80 mm Hg Most recent systolic 2022-10-23 16:08:42 IgorTarun [facility]ix[facility]ira [facility] blood pressure less than Health 130 mm Hg Most recent HbA1c is 2022-10-23 16:08:14 IgorTarun [facility] less than 7.0% Health Urine - In 2022-10-23 15:52:10 Tarun Costa [facility] Health IM Injection of 2022-10-02 10:34:01 Betty Diggs mmunity Antibiotic Health Injection, ceftriaxone 2022-10-02 10:34:01 Betty Diggs [facility] sodium, per 500 mg Health Oral / SL / LA 2022-10-02 10:28:48 Betty Diggs [facility] Health Urine - In 2022-09-26 13:05:09 Betty Diggs [facility] Health 2022-09-10 11:32:58 Provider, [facility] Education/Supportive Health Services Health Counseling Condom - Male 2022-04-23 13:04:51 Jenn Tillman [facility] Health Insertion, 2022-04-23 13:04:51 Jenn Tillman [facility] non-biodegradable drug Health delivery implant Urine - In 2022-04-23 13:03:04 Jenn Tillman [facility] Health Condom - Male 2022-04-16 12:17:37 Jenn Tillman [facility] Health Insertion, 2022-04-16 12:17:00 Jenn Tillman mmunity non-biodegradable drug Health delivery implant Urine - In 2022-04-16 12:17:00 Jenn Tillman [facility] Health Integrated Behavioral 2022-03-12 13:59:54 Jenn Tillman [facility] Assessment (IBH) Health Urine - In 2022-01-10 10:22:46 Melissa Zeng [facility] Health IM Injection of 2021-04-01 17:13:46 Jose C Perkins [employer]unity Antibiotic Health Injection, ceftriaxone 2021-04-01 17:13:46 Jose C Perkins [facility] sodium, per 500 mg Health Venipuncture 2021-04-01 16:54:37 Jose C Perkins [facility] [employer] Urine - In 2021-03-17 19:12:34 Nicho Talley [facility] Health Urinalysis - Manual w/o 2021-03-17 19:11:07 Nicho Talley [facility] Micro - In House Health Rapid Strep A - In House 2021-03-17 18:46:01 GerriNicho castelan Juancarlos shalom [facility] Health Behavioral Health - 2020-11-30 11:01:49 Anisa Stewart [facility] Therapy Health Behavioral Health - 2020-11-30 11:01:49 Anisa Stewart [facility] Psychiatry Health Urinalysis - - 2020-11-30 11:01:22 Franchesca Stewart [facility] In [facility] Hearing Screening 2020-11-30 11:00:52 Anisa Stewart [facility] Health DEVELOPMENTAL SCREENING 2020-11-30 11:00:52 Carey Stewart [facility] W/INTERP&REPRT STD FOR Health Urinalysis - - 2020-05-12 12:08:48 Mica Lewis [facility] PadSquad Ix admin via ID IM or 2020-05-05 13:03:14 Valentina Lewis jet injects with KelBillet counseling by physician Ev Quadrivalent IM 2020-05-05 13:00:58 Juancarlos Lewis [facility] Prefilled Syringe 0.5 mL KelBillet (PF) Vaccines Ordered - Print 2020-05-05 11:32:30 Mica Lewis [facility] Consent/Declination KelBillet Forms Urinalysis - - 2020-05-05 11:26:54 Mica Lewis [facility] In [facility] Health Urinalysis - - 2020-05-03 10:59:35 Mica Lewis [facility] In [facility] Urinalysis - Dip only - 2020-05-03 10:59:35 Juancarlos Lewis [facility] Health Integrated Behavioral 2020-02-21 16:49:20 CejaOdette Juancarlosshalom [facility] Health Assessment (IBH) Health Health 2020-02-17 15:26:40 Provider, Sravani Barakat meena Education/Supportive Health Services Health Counseling Both Nutrition / 2020-01-26 13:42:16 Marcial Turkmen Juancarlosshalom robledo Exercise Counseling Health (Obese) General Patient 2020-01-24 15:12:40 Odette Cejashalom Yuvalu nity Education Health Urine Drug Screen - In 2020-01-24 15:08:57 Odette Ceja Josefina childress [facility] House Health Urinalysis - - 2020-01-24 15:07:28 Odette Ceja Juancarlos rausch [facility] In House Health Behavioral Health - 2020-01-24 15:01:44 Odette Ceja C ommunity Therapy Health Vaccines Ordered - Print 2020-01-24 15:01:08 MarcialOdette [facility] Consent/Declination Health Forms Rapid Strep - In House 2019-09-08 13:21:29 Nicho Talley [facility]x - Ix admin via 2019-04-28 13:01:45 Odette Cejakelley andrew [facility] ID IM or jet injects Health without counseling by physician Fluzone Quadrivalent IM 2019-04-28 13:01:45 Odette Ceja [facility] Prefilled Syringe 0.5 mL Health (PF) Vaccines Ordered - Print 2019-04-28 12:48:16 CejaOdette [facility] Consent/Declination Health Forms Rapid Strep - In House 2019-04-28 12:41:09 Odette Ceja fior [facility] Health Urinalysis - - 2019-04-28 12:40:03 Odette Ceja shalom [facility] In House Health Urinalysis - - 2018-11-25 18:15:51 Odette Ceja shalom [facility] In House Health Behavioral Health - 2018-11-25 18:13:56 Odette Ceja C ommunity Therapy Health Rapid Strep - In House 2018-08-25 15:19:53 Farrah Mccoy [facility] Health Behavioral Health - 2017-12-03 16:19:08 Gerri Jara [facility] Therapy Health Urinalysis - - 2017-12-03 16:18:54 Gerri Jara Leg acy [facility] In House Health Rapid Strep - In House 2017-10-30 10:21:39 [facility] Behavioral Health - 2017-10-17 11:57:28 Luis Armando Burrell cy [facility] Psychiatry Health Behavioral Health - 2017-08-26 13:18:32 Allison Thrasher [facility] Psychiatry Health Oral / SL / LA 2017-01-08 11:53:50 RaleighAlma bradysade Bauershalom [facility] munity Health Dexamethasone 2 mg 2017-01-08 11:53:50 Maddie Jose C Federico [facility] Health Rapid Strep - In House 2017-01-08 11:44:15 Michellejessicacaitlyn Jose C Juancarlos webbery [facility] Health Nutrition Initial 2017-01-03 15:54:58 Joi Bird [facility] mmunity Assessment Ind (15 Min) [facility] - [id number] Nutrition Counseling- 2016-12-20 11:38:03 Theresa Meyers y [facility] Registered Dietitian Health BLOOD COUNT HEMOGLOBIN 2015-12-01 13:48:13 Theresa Meyers [facility] Health Rapid Strep - In House 2015-06-08 12:04:59 Nicho Talley Leglawanda y [facility] Health Rapid Strep - In House 2014-12-19 12:55:27 Francoise Gordillo Legac y [facility] Health Rapid Strep - In House 2014-12-06 14:00:42 Fatoumata Kirklandac [facility] Rapid Flu - In House 2014-08-23 11:51:24 Camila Hernandez Legshalom [facility] Health Rapid Flu - In House 2014-06-26 17:33:19 Camila Hernandezshalom [facility] Health Rapid Strep - In House 2014-06-15 14:42:16 Camila Hernandez [facility] BLOOD COUNT HEMOGLOBIN 2013-11-17 12:26:18 [facility] Rapid Strep - In House 2013 17:10:36 Irene Champagne [facility] Health Rapid Strep - InHouse 2013-08-19 16:08:30 Camila Hernandezshalom [facility] Health Rapid Strep - InHouse 2013-08-04 13:19:03 Irene Champagne y [facility] Health Urinalysis - Dip only - 2013-08-04 13:19:03 Irene Champagne [facility] Rapid Strep - InHouse 2013-05-14 17:21:20 Beverly Puckett [facility] Rapid Strep - InHouse 2012-09-30 13:28:59 Katiuska Patel [facility] Urinalysis - Dip only - 2012-09-30 13:28:00 Katiuska Patel [facility] Encounters Start End Encounter Admission Attending Care Care Encounter Source Date/Time Date/Time Type Type Clinicians Facility Department ID 2023-02-27 Outpatient lc.kyler [facility] [id number] [facility] 15:21:04 n [id number] [facility] 2023-01-21 Outpatient lc.kyler [facility] [id number] [facility] 05:03:08 n [id number] [facility] 2023-01-20 Outpatient lc.kyler [facility] [id number] [facility] 08:17:00 n [id number] [facility] 2023-01-02 Outpatient lc.kyler [facility] [id number] [facility] 07:23:00 n [id number] [facility] 2022-12-23 Outpatient lc.kyler [facility] [id number] [facility] 22:43:04 n [id number] [facility] 2022-12-11 Outpatient lc.kyler [facility] [id number] [facility] 05:04:12 n [id number] [facility] 2022-11-18 Outpatient lc.kyler [facility] [id number] [facility] 14:17:37 n [id number] [facility] 2022-10-24 Outpatient lc.kyler [facility] [id number] [facility] 08:53:03 n [id number] [facility] 2022-10-11 Outpatient lc.kyler [facility] [id number] [facility] 20:39:00 n [id number] [facility] 2022-10-04 Outpatient lc.kyler [facility] [id number] [facility] 15:41:02 n [id number] [facility] 2022-10-02 Outpatient lc.kyler [facility] [id number] [facility] 08:13:08 n [id number] [facility] 2022-09-23 Outpatient lc.kyler [facility] [id number] [facility] 10:16:15 n [id number] [facility] 2022-09-16 Outpatient lc.kyler [facility] [id number] Legacy 15:53:02 n [facility] 2022-09-14 Outpatient lc.kyler [facility] [id number] [facility] 13:05:44 n [facility] 2022-07-23 Outpatient lc.kyler [facility] [id number] [facility] 12:22:38 n [id number] [facility] 2022-07-17 Outpatient lc.kyler [facility] [id number] [facility] 14:25:02 n [facility] 2022-07-01 Outpatient lc.kyler [facility] [id number] [facility] 16:12:10 n [facility] 2022-06-19 Outpatient lc.kyler [facility] [id number] [facility] 15:17:03 n [facility] 2022-06-17 Outpatient lc.kyler [facility] [id number] Legacy 08:21:02 n [facility] 2022-06-11 Outpatient lc.kyler [facility] [id number] Legacy 10:03:06 n [id number] [facility] 2023-03-17 2023-03-19 In-person Carmencita [facility] Adult [id number] [facility] 00:00:00 00:00:00 encounter Yvonne Ayala Medicine 30 [id number] [facility] 2023-01-06 2023-01-06 In-person Continuing Education InstructorMelissa mancia [facility] Adult 1 [id number] [facility] 00:00:00 00:00:00 [place] [id number] [facility] Jose Rafael Triplett [facility] 2023-01-06 2023-01-06 In-person Continuing Education InstructorMelissa mancia [facility] Adult E ncounter/ Legacy 00:00:00 00:00:00 encounter Jose Rafael Triplett Medicine [id number] [facility] [id number] [facility] 2022-12-25 2022-12-29 In-person Abbey Xiomara [facility] Legacy D eer Encounter/ Legacy 00:00:00 00:00:00 [facility] [id number] [facility] [id number] [facility] 2022-12-25 2022-12-29 In-person Abbey Xiomara [facility] Legacy D eer [id number] Legacy 00:00:00 00:00:00 encounter [facility] [id number] [facility] Family [facility] 2022-12-12 2022-12-12 In-person Woody Chewefe [facility] Adult [id number] Legacy 00:00:00 00:00:00 encounter Chela Botello Medicine [id number] [facility] Ml Meza [facility] 2022-12-12 2022-12-12 In-person Woody Chew [facility] Adult Encounter/ Legacy 00:00:00 00:00:00 encounter Ml Meza Medicine 2 [id number] [facility] [id number] [facility] 2022-12-05 2022-12-05 In-person Kate Casillas [facility] E ncounter/ Legacy 00:00:00 00:00:00 encounter CuetoJessica Adult [id number] [facility] Chela Botello Medicine [id number] [facility] 2022-12-05 2022-12-05 In-person Kate Casillas [facility] 1 [id number] [facility] 00:00:00 00:00:00 encounter Rom Jessica Adult [id number] [facility] 2022-10-23 2022-10-23 In-person Tarun Costa [facility] Encounter/ Legacy 00:00:00 00:00:00 encounter Mariela Ramírez Adult 1 [id number] Spring [facility] [id number] [facility] 2022-10-23 2022-10-23 In-person Tarun Costa [facility] [id number] [facility] 00:00:00 00:00:00 encounter Rajesh Ramírezantha Adult 3 [id number] Spring Carranza [facility] 2022-09-26 2022-09-[address] [facility] hwangandra [facility] Encounter/ Legacy 00:00:00 00:00:00 encounter Yoel Meyers Adult [id number] [facility] [id number] [facility] 2022-09-26 2022-09-26 In-person Betty Diggs [facility] [id number] [facility] 00:00:00 00:00:00 encounter Mira Yoel Adult [id number] [facility] 2022-06-20 2022-06-20 In-person [facility] Adult [id number] [facility] 00:00:00 00:00:00 encounter Kelle Jasmine Medicine [id number] [facility] 2022-06-20 2022-06-20 In-person [facility] [facility] Encounter/ Legacy 00:00:00 00:00:00 encounter Kelle Tellez Medicine 1987 [id number] [facility] 17503 0 [facility] 2022-04-16 2022-04-23 In-person Jenn [facility] [id number] Legacy 00:00:00 00:00:00 encounter Luz Fowler Pediatric[facility] 2 0927 [facility] 2022-03-12 2022-03-13 In-person Jenn [facility] [id number] Legacy 00:00:00 00:00:00 encounter Franca Zeng Pediatrics 20 823 [facility] 2022-03-12 2022-03-13 Office Jenn Tillman [facility] Encounter/ Legacy 00:00:00 00:00:00 Visit Yvrose Hui 06565 [id number] [facility] Vill[facility]va 57125 0 [facility] 2022-01-14 2022-01-14 In-person IGNACIA Zeng [facility] ter/ Legacy 00:00:00 00:00:00 encounter Melissa Pediatrics [id number] 4 [facility] 445458 [facility] 2022-01-10 2022-01-10 In-person Melissa Zeng [facility] [phone] Legacy 00:00:00 00:00:00 encounter Yessica White Pediatrics 00099 [facility] 2022-01-10 2022-01-10 Office Melissa Zeng [facility] Enc ounter/ Legacy 00:00:00 00:00:00 Visit Yessica White 1973 [id number] [facility] Lam 444589 [facility] 2021-06-20 2021-06-20 In-person Hunter Dunn [facility] En counter/ Legacy 00:00:00 00:00:00 encounter Ez Destiney Family [id number] [facility] 583761 [facility] 2021-06-06 2021-06-06 In-person [facility] 17 1489- Legacy 00:00:00 00:00:00 encounter Joon Agarwal Family 54416 [facility] Violette Russo Practice ty Ez [facility] 2021-06-06 2021-06-06 Office Hunter Dunn [facility] Encounte r/ Legacy 00:00:00 00:00:00 Visit Joon Agarwal [id number] [facility] Aguayo 470484 conor Hui [facility] 2021-04-04 2021-04-04 In-person Sumanth Moreno [facility] Legacy 17 1489- Legacy 00:00:00 00:00:00 encounter Tatianna Varma Golinda 10 915 [facility] 2021-04-04 2021-04-04 Office Sumanth Moreno [facility] Enco unter/ Legacy 00:00:00 00:00:00 Visit Tatianna Varma [id number] [facility] 370558 Health 2021-04-01 2021-04-04 In-person Jose C Perkins [facility] [id number] Legacy 00:00:00 00:00:00 encounter Gary Beltran [facility] 10 912 [facility] Mckenzie Hui [facility] 2021-03-17 2021-03-17 In-person Gerri Nicho [facility] [phone] Legacy 00:00:00 00:00:00 encounter Gary [facility] 10 828 [facility] Ortiz O ty Health 2021-03-17 2021-03-17 Office Sylvester Talleye [facility] Encounte r/ Legacy 00:00:00 00:00:00 Visit Gary Beltran [id number] [facility] Valentino Zeng 479106 Health 2020-11-30 2020-12-01 In-person Anisa Stewart [facility] [id number] Legacy 00:00:00 00:00:00 encounter Brigida Carpenter Pediatrics 105 13 [facility] 2020-05-12 2020-05-14 In-person RemMelodie Cotton [facility] 882819-027 Legacy 00:00:00 00:00:00 encounter Jill Carrillo Pediatrics 0 1023 [facility] 2020-05-12 2020-05-12 Office Jani [facility] Encount er/ Legacy 00:00:00 00:00:00 Visit Trisha Angel [id number] Santana saldivar 737846 Health 2020-05-12 2020-05-12 Office IGNACIA Carrillo Encounter/ Legacy 00:00:00 00:00:00 Visit Jill [id number] [facility] taran 728931 ty Health 2020-05-12 2020-05-12 Office Remoue ELIDA ELIDA Encounter/ Legacy 00:00:00 00:00:00 Visit Andrew [id number] Santana Sewell 945180 Health 2020-05-12 2020-05-12 Office Remouolga [facility] ELIDA Encounter/ Legacy 00:00:00 00:00:00 Visit Andrew [id number] Santana Sewell 446358 Health 2020-05-12 2020-05-12 Office [facility]Melod[facility] En[facility]/ Legacy 00:00:00 00:00:00 Visit Jill Carrillo [id number] [facility] 580562 [facility] 2020-05-09 2020-05-09 Office Remoue ELIDA LC Encounter/ Legacy 00:00:00 00:00:00 Visit Andrew [id number] Santana Sewell 958939 [facility] 2020-05-05 2020-05-08 In-person Remoue Melodie Morales [facility] [id number] Legacy 00:00:00 00:00:00 encounter Christy Shell Pediatric s 78468 [facility]ica [facility] 2020-05-05 2020-05-05 Office Remoue Melodie Morales LC H Encounter/ Legacy 00:00:00 00:00:00 Visit Christy Shell [id number] [facility] Yessica White 420616 [facility] 2020-05-05 2020-05-05 Office Remoue ELIDA LC Encounter/ Legacy 00:00:00 00:00:00 Visit Andrew [id number] C janna Sewell 619306 [facility] 2020-05-05 2020-05-05 Office IGNACIA Carrillo LC Encounter/ Legacy 00:00:00 00:00:00 Visit Jill [id number] Com taran 830204 [facility] 2020-05-05 2020-05-05 Office IGNACIA White Encounte r/ Legacy 00:00:00 00:00:00 Visit Yessica [id number] Com taran 474423 [facility] 2020-05-05 2020-05-05 Office Remoue ELIDA LC Encounter/ Legacy 00:00:00 00:00:00 Visit Andrew [id number] Santana Sewell 903849 [facility] 2020-05-05 2020-05-05 Office Remoue ELIDA LC Encounter/ Legacy 00:00:00 00:00:00 Visit Andrew [id number] Santana Sewell 504434 [facility] 2020-05-03 2020-05-05 In-person Remoue Melodie Morales [facility] 447700-514 Legacy 00:00:00 00:00:00 encounter Yessica White Pediatrics 12641 Jill [facility] 2020-05-03 2020-05-03 Office Remoue Melodie Morales LC H Encounter/ Legacy 00:00:00 00:00:00 Visit White, Yessica 1918 [id number] Communi 728233 ty Health 2020-05-03 2020-05-03 Office Remoue [facility] Encounter/ Legacy 00:00:00 00:00:00 Visit Andrew [id number] Santana Sewell 064474 Health 2020-05-03 2020-05-03 Office Remoue Melodie Morales LC H Encounter/ Legacy 00:00:00 00:00:00 Visit Yessica White 1918 [id number] Jill Hunter 409938 Health 2020-05-03 2020-05-03 Office Remoue ELIDA [facility] Encounter/ Legacy 00:00:00 00:00:00 Visit Andrew [id number] Santana Sewell 613547 Health 2020-05-03 2020-05-03 Office Remoue [facility] Encounter/ Legacy 00:00:00 00:00:00 Visit Andrew [id number] Santana Sewell 712501 Health 2020-04-29 2020-04-29 Office Remoue [facility] Encounter/ Legacy 00:00:00 00:00:00 Visit Andrew [id number] Santana Sewell 742745 Health 2020-04-17 2020-04-17 Office Odette Ceja [facility] Encounter / Legacy 00:00:00 00:00:00 Visit [id number] Com taran 077690 ty Health 2020-02-21 2020-02-21 Office Odette Ceja LC Encounter / Legacy 00:00:00 00:00:00 Visit Lynette David 1912 457230 Liborio Estrella 463916 ty Health 2020-02-21 2020-02-21 Office Odette Ceja [facility] Encounter / Legacy 00:00:00 00:00:00 Visit [id number] Com taran 912758 ty Health 2020-02-21 2020-02-21 In-person Odette CejaH Legacy [id number] Legacy 00:00:00 00:00:00 encounter Lynette David 61530 Liborio Estrella [facility] Healt h 2020-02-18 2020-02-18 Office Odette Ceja [facility] Encounter / Legacy 00:00:00 00:00:00 Visit [id number] Com taran 587674 Health 2020-02-17 2020-02-17 Office Provider, [facility] LC Encounter/ Legacy 00:00:00 00:00:00 Visit Renuka Leo [id number] Odette Jarrett 916992 ty Health 2020-02-09 2020-02-09 Office IGNACIA Leo Encounter/ Legacy 00:00:00 00:00:00 Visit Renuka [id number] Com taran 141506 ty Health 2020-01-26 2020-01-26 Office Grecia Cruz [facility] En counter/ Legacy 00:00:00 00:00:00 Visit Parish Cao [id number] [facility] Communi 245098 Health 2020-01-26 2020-01-26 Office IGNACIA Cruz Encounter / Legacy 00:00:00 00:00:00 Visit Grecia [id number] Com taran 399137 ty Health 2020-01-24 2020-01-26 In-person Marcial Turkmen [facility] Legacy [id number]- [id number] Legacy 00:00:00 00:00:00 encounter Brigida Carpenter 007 06 CommunAdelia Gorman [facility], Liborio Zepeda Brenda 2020-01-25 2020-01-25 Office IGNACIA Meyers Encounter/ Legacy 00:00:00 00:00:00 Visit Adelia [id number] Com taran 752208 ty Health 2020-01-24 2020-01-24 Office Status, Fax [facility] Encoun ter/ Legacy 00:00:00 00:00:00 Visit [id number] Com taran 012951 ty Health 2020-01-24 2020-01-24 Office Status, Fax [facility] Encoun ter/ Legacy 00:00:00 00:00:00 Visit [id number] Com taran 938394 ty Health 2020-01-24 2020-01-24 Office Delbert Potter [facility] Encoun ter/ Legacy 00:00:00 00:00:00 Visit [id number] Com taran 454949 ty Health 2020-01-24 2020-01-24 Office Marcial Turkmen [facility] Encounter / Legacy 00:00:00 00:00:00 Visit [id number] Com taran 381201 ty Health 2020-01-24 2020-01-24 Office Odette Ceja [facility] Encounter / Legacy 00:00:00 00:00:00 Visit Brigida Carpenter [id number] Adelia Jordan 391445 conor Jackson, [facility], Liborio Zepeda Brenda 2020-01-24 2020-01-24 Office Odette Ceja [facility] Encounter / Legacy 00:00:00 00:00:00 Visit [id number] Com taran 243869 ty Health 2020-01-24 2020-01-24 Office Odette Ceja [facility] Encounter / Legacy 00:00:00 00:00:00 Visit [id number] Com taran 520085 ty [facility] 2020-01-18 2020-01-21 In-person Kenya Chau [facility] Legacy [id number] Legacy 00:00:00 00:00:00 [facility] 0 0630 Commun[facility] Healt 2020-01-18 2020-01-18 Office Kenya Chau [facility] Encounter/ Legacy 00:00:00 00:00:00 Visit Donna Kerns [id number] 1969 Communi 467352 ty Health 2019-09-13 2019-09-13 Office Nicho Talley [facility] Encounte r/ Legacy 00:00:00 00:00:00 Visit Dali Phelps [id number] 384 Communi 204573 ty Health 2019-09-13 2019-09-13 Office Nicho Talley [facility] Encounte r/ Legacy 00:00:00 00:00:00 Visit [id number] Com taran 567364 Health 2019-09-08 2019-09-08 Office Nicho Talley [facility] Encounte r/ Legacy 00:00:00 00:00:00 Visit [id number] Com taran 802194 ty Health 2019-09-08 2019-09-08 Office [facility] En[facility]/ Legacy 00:00:00 00:00:00 Visit [id number] Com taran 248274 Health 2019-09-08 2019-09-08 Office Lee [facility] Encounter/ Legacy 00:00:00 00:00:00 Visit Tracy [id number] Com taran 043785 Health 2019-09-08 2019-09-08 Office Nicho Talley [facility] Encounte r/ Legacy 00:00:00 00:00:00 Visit Gary Beltran [id number] Communi 029659 [facility] 2019-09-08 2019-09-08 In-person Nicho Talley [facility] 1714 89-202 Legacy 00:00:00 00:00:00 encounter Gary Beltran [facility] 00 219 Communi [facility] 2019-06-22 2019-06-23 [facility] 86909 60608 Memoria 19:20:16 00:07:00 dulce Santos [facility] 2019-06-22 2019-06-23 Emergency [facility] 07159 99518 Memoria 19:20:16 00:07:00 dulce Santos [facility] 2019-06-22 2019-06-22 Outpatient SAUL Romero MHPL [id number] 13:20:16 18:07:00 Darwin Ballardb 2019-06-22 2019-06-22 Emergency E MHBL MHBL 7501 MHBL 13:20:00 13:20:00 2019-05-03 2019-05-03 Office Odette Ceja [facility] Encounter / Legacy 00:00:00 00:00:00 Visit Liborio Smith [id number] 0303 Communi 984194 [facility] 2019-04-28 2019-04-29 In-person Odette Ceja [facility] Legacy [id number]- [id number] Legacy 00:00:00 00:00:00 encounter Tyesha Phelps Sharpbrian 9100 9 Jolly Lizarraga Rookin ty Smith, [facility] 2019-04-28 2019-04-28 Office Odette Ceja [facility] Encounter / Legacy 00:00:00 00:00:00 Visit [id number] Com taran 859385 ty Health 2019-04-28 2019-04-28 Office Odette Ceja [facility] Encounter / Legacy 00:00:00 00:00:00 Visit [id number] Com taran 470675 ty Health 2019-04-28 2019-04-28 Office Odette Ceja [facility] Encounter / Legacy 00:00:00 00:00:00 Visit [id number] Com taran 063839 ty Health 2019-04-28 2019-04-28 Office Odette Ceja [facility] Encounter / Legacy 00:00:00 00:00:00 Visit [id number] Com taran 533391 ty Health 2019-04-28 2019-04-28 Office Odette Ceja [facility] Encounter / Legacy 00:00:00 00:00:00 Visit Tyesha Phelps [id number] Jolly Lizarraga 451209 ty [facility] 2019-03-12 2019-03-12 Office Status, Fax [facility] Encoun ter/ Legacy 00:00:00 00:00:00 Visit [id number] Com taran 131725 ty Health 2019-03-04 2019-03-04 Office Status, Fax [facility] Encoun ter/ Legacy 00:00:00 00:00:00 Visit [id number] Com taran 308105 ty Health 2019-03-04 2019-03-04 Office Status, Fax [facility] Encoun ter/ Legacy 00:00:00 00:00:00 Visit [id number] Com taran 960031 ty Health 2019-03-04 2019-03-04 Office Status, Fax [facility] Encoun ter/ Legacy 00:00:00 00:00:00 Visit [id number] Com taran 722566 ty Health 2019-03-03 2019-03-04 In-person Odette Ceja [facility] Legacy [id number]- [id number] Legacy 00:00:00 00:00:00 encounter Tyesha Phelps [phone] 4 Jolly Lizarraga ty Henny Valencia [facility] Health 2019-03-03 2019-03-03 Office Marcial Turkmen [facility] LC Encounter / Legacy 00:00:00 00:00:00 Visit [id number] Com taran 091568 ty Health 2019-03-03 2019-03-03 Office Marcial Turkmen [facility] LC Encounter / Legacy 00:00:00 00:00:00 Visit Tyesha Phelps [id number] Jolly Lizarraga 090649 ty Erik, Henny Health 2018-12-08 2018-12-08 Office Marcial Turkmen [facility] LC Encounter / Legacy 00:00:00 00:00:00 Visit Tyesha Phelps [id number] Communi 524766 Health 2018-12-05 2018-12-05 Office Marcial Turkmen [facility] LC Encounter / Legacy 00:00:00 00:00:00 Visit [id number] Com taran 228232 Health 2018-12-03 2018-12-03 Office ELIDA Cao LC Encounter/ Legacy 00:00:00 00:00:00 Visit Marifer [id number] Com taran 790346 Health 2018-11-25 2018-11-26 In-person Odette Ceja [facility] Legacy 333802- [id number] Legacy 00:00:00 00:00:00 encounter Marifer Cao 90 508 Matilda Bunn [facility] Danna De [facility] Bee Smithper 2018-11-25 2018-11-25 Office Marcial Turkmen [facility] LC Encounter / Legacy 00:00:00 00:00:00 Visit [id number] Com taran 034759 ty Health 2018-11-25 2018-11-25 Office Marcial Turkmen [facility] LC Encounter / Legacy 00:00:00 00:00:00 Visit [id number] Com taran 498590 ty Health 2018-11-25 2018-11-25 Office Marcial Turkmen [facility] LC Encounter / Legacy 00:00:00 00:00:00 Visit Marifer Cao [id number] Matilda Bunn 904335 [facility] Liborio Smith 2018-09-16 2018-09-16 Emergency nullFlavo [facility] 88536 16240 Memoria 02:39:00 07:13:00 r Akash 00 l [facility] 2018-09-16 2018-09-16 Emergency nullFlavo [facility] 73263 94895 Memoria 02:39:00 07:13:00 r Long Barn 00 l [facility] 2018-09-15 2018-09-16 Outpatient Fadowole, MHPL MHPL [id number] 20:39:00 01:13:00 [facility]aya [facility] 2018-08-27 2018-08-27 Office IGNACIA Mccoy [facility] Encounter / Legacy 00:00:00 00:00:00 Visit Farrah [id number] Com taran 735203 [facility] 2018-08-25 2018-08-25 Office IGNACIA Mccoy [facility] Encounter / Legacy 00:00:00 00:00:00 Visit Farrah [id number] Com taran 890026 ty [facility] 2018-08-25 2018-08-25 [facility] Encounter / Legacy 00:00:00 00:00:00 Visit Farrah [id number] Com taran 548235 ty Health 2018-08-25 2018-08-25 Office IGNACIA Phelps [facility] Encounter/ Legacy 00:00:00 00:00:00 Visit Marycruz [id number] Com taran 628381 [facility] 2018-08-25 2018-08-25 Office [facility] Enc ounter/ Legacy 00:00:00 00:00:00 Visit Dali Phelps [id number] [facility] 757499 [facility] 2018-08-25 2018-08-25 Office [facility] ELIDA Enc ounter/ Legacy 00:00:00 00:00:00 Visit Dali Phelps [id number] Gary Kruger 517877 [facility] 2018-08-25 2018-08-25 [facility] 177482-225 Legacy 00:00:00 00:00:00 encounter Dali Phelps Urgent Care 9 0205 [facility] Gary Beltran [facility] 2017-12-06 2017-12-06 Office Gerri Jara [facility] Encounter / Legacy 00:00:00 00:00:00 Visit Chayo [id number] Com taran 894177 [facility] 2017-12-03 2017-12-06 In-person Gerri Jara Chayo [facility] Legacy 17 [id number] Legacy 00:00:00 00:00:00 encounter Amina Gray 805 16 [facility] ty EdgardMatilda [facility] 2017-12-04 2017-12-04 Office Jaleel Jaraannelise MARREROH [facility] Encounter / Legacy 00:00:00 00:00:00 Visit Chayo [id number] Com taran 596998 [facility] 2017-12-04 2017-12-04 Office IGNACIA Ellington [facility] Encounter/ Legacy 00:00:00 00:00:00 Visit Adele [id number] Com taran 389545 [facility] 2017-12-03 2017-12-03 Office Jaleel Jarai [facility] Encounter / Legacy 00:00:00 00:00:00 Visit Chayo [id number] Com taran 957870 [facility] 2017-12-03 2017-12-03 Office Gerri Jara [facility] Encounter / Legacy 00:00:00 00:00:00 Visit Chayo [id number] Com taran 774617 [facility] 2017-12-03 2017-12-03 Office Gerri Jara Chayo LC LC Enco unter/ Legacy 00:00:00 00:00:00 Visit Amina Gray [id number] [facility] 564 200 ty Edgard [facility] 2017-11-13 2017-11-13 Office Lenin BETH [facility] Encounter/ Legacy 00:00:00 00:00:00 Visit Luigi [id number] Com taran Marifer 054037 [facility] 2017-10-30 2017-10-30 Office IGNACIA Ch [facility] Encounter/ Legacy 00:00:00 00:00:00 Visit Mary [id number] Com taran 285014 [facility] 2017-10-30 2017-10-30 Office Luigi [facility] Encounter/ Legacy 00:00:00 00:00:00 Visit Theresa [id number] Co mmuni 797148 [facility] 2017-10-30 2017-10-30 Office Luigi [facility] Encounter/ Legacy 00:00:00 00:00:00 Visit Theresa [id number] Co mmuni 684186 [facility] 2017-10-30 2017-10-30 Office Shayla Meyersisma [facility] LC E ncounter/ Legacy 00:00:00 00:00:00 Visit Tracy Howard [id number] 2 [facility] 133707 [facility] 2017-10-30 2017-10-30 In-person Luigi Theresa [facility] 900239-043 Legacy 00:00:00 00:00:00 encounter Tracy Howard [facility] 804 12 [facility] 2017-10-17 2017-10-17 Office Franc [facility] En[facility] ter/ Legacy 00:00:00 00:00:00 Visit laniLuis Armando [id number] Co mmuni 671482 [facility] 2017-10-17 2017-10-17 Office Luis Armando Burrell [facility] Encounter/ Legacy 00:00:00 00:00:00 Visit Mary Ch [id number] 631 [facility] Marifer Cao 416201 conor Rene [facility] 2017-10-17 2017-10-17 In-person Luis Armando Bur[facility] [id number] Legacy 00:00:00 00:00:00 encounter Mary Ch Urgent Care 8 0330 [facility] Marifer Cao [facility] 2017-08-26 2017-08-26 Office Allison Thrasher ELIDA Encounter/ Legacy 00:00:00 00:00:00 Visit Leena Bird [id number] [facility] Yolanda James 993417 [facility] 2017-08-26 2017-08-26 Office IGNACIA Thrasher Encount er/ Legacy 00:00:00 00:00:00 Visit Allison Dumont [id number] Co mmuni 022851 [facility] 2017-08-26 2017-08-26 Office [place], [facility] LC Encount er/ Legacy 00:00:00 00:00:00 Visit Allisno Dumont [id number] Co mmuni 775724 [facility] 2017-08-15 2017-08-26 In-person Osterholm, Allison E [facility] [place] 883074-365 Legacy 00:00:00 00:00:00 encounter Nikia Francis 80 126 [facility] 2017-08-15 2017-08-15 Office [place], [facility] Encount er/ Legacy 00:00:00 00:00:00 Visit Allison Dumont [id number] Co mmuni 825699 [facility] 2017-08-15 2017-08-15 Office [place], [facility] Encount er/ Legacy 00:00:00 00:00:00 Visit Allison Dumont [id number] Co mmuni 767951 [facility] 2017-08-15 2017-08-15 Office [place], [facility] LC Encount er/ Legacy 00:00:00 00:00:00 Visit Allison Dumont [id number] Co mmuni 361774 [facility] 2017-08-15 2017-08-15 Office Osterholm, Allison E LC [facility] Encounter/ Legacy 00:00:00 00:00:00 Visit Nikia Francsi [id number] Communi 328040 [facility] 2017-07-18 2017-07-22 In-person Gerri Jara [facility] Legacy 17 [id number] Legacy 00:00:00 00:00:00 encounter Nikia Francis 71 229 [facility] 2017-07-18 2017-07-18 Office Gerri Jara Encounter / Legacy 00:00:00 00:00:00 Visit Chayo [id number] Com taran 195205 [facility] 2017-07-18 2017-07-18 Office Gerri Jara Encounter / Legacy 00:00:00 00:00:00 Visit Chayo [id number] Com taran 970791 ty Health 2017-07-18 2017-07-18 Office Gerri Jara Chayo [facility] Enco unter/ Legacy 00:00:00 00:00:00 Visit Nikia Francis [id number] 833 [facility] 409239 ty Health 2017-07-17 2017-07-17 Office Gerri Jara Chayo [facility] Enco unter/ Legacy 00:00:00 00:00:00 Visit Evy Hughes [id number] 85 [facility] 619246 Health 2017-04-16 2017-04-16 Office GerriNicho [facility] Encounte r/ Legacy 00:00:00 00:00:00 Visit Donna Moy [id number] [facility] 610427 ty Health 2017-04-10 2017-04-10 Office ELIDA Fan ELIDA Encounter/ Legacy 00:00:00 00:00:00 Visit [facility] [id number] [facility] taran Provider [id number] Health 2017-03-28 2017-03-30 In-person Theresa Meyers [facility] [id number] Legacy 00:00:00 00:00:00 encounter Tamara Shepard Pediatrics 7 0908 [facility] ty Health 2017-03-28 2017-03-28 Office Theresa Meyers [facility] E ncounter/ Legacy 00:00:00 00:00:00 Visit Tamara Shepard [id number] 5914 [facility] 123707 ty Health 2017-01-08 2017-01-22 In-person Jose C Perkins [facility] 493419-729 Legacy 00:00:00 00:00:00 encounter Donna Moy Urgent Care 06575 [facility] NelsonJayesh ty Health 2017-01-08 2017-01-08 Office IGNACIA Perkins Encounter / Legacy 00:00:00 00:00:00 Visit Jose C [id number] [place] [id number] ty Health 2017-01-08 2017-01-08 Office IGNACIA Perkins Encounter / Legacy 00:00:00 00:00:00 Visit Jose C [id number] Co eduari [id number] ty Health 2017-01-08 2017-01-08 Office Jose C Perkins [facility] Encounter/ Legacy 00:00:00 00:00:00 Visit Donna Moy [id number] Jayesh Cooper [id number] ty Health 2017-01-03 2017-01-03 Office Pelon [facility] Encounte r/ Legacy 00:00:00 00:00:00 Visit Joi [id number] Com taran 121638 ty Health 2016-12-20 2016-12-20 Office Luigi [facility] Encounter/ Legacy 00:00:00 00:00:00 Visit Theresa [id number] Co mmuni [id number] ty Health 2016-12-20 2016-12-20 Office Luigi [facility] Encounter/ Legacy 00:00:00 00:00:00 Visit Theresa [id number] Co mmuni [id number] ty Health 2016-12-20 2016-12-20 Office Radha [facility] Encounte r/ Legacy 00:00:00 00:00:00 Visit Aurea [id number] Co mmuni 803038 ty Health 2016-12-20 2016-12-20 Office Luigi [facility] Encounter/ Legacy 00:00:00 00:00:00 Visit Theresa [id number] Co mmuni [id number] Health 2016-12-20 2016-12-20 Office Theresa Meyers [facility] E ncounter/ Legacy 00:00:00 00:00:00 Visit Rosalie Collier [id number] Joi Butler [id number] ty [facility] 2016-12-20 2016-12-20 In-person Theresa Meyers [facility] [id number] Legacy 00:00:00 00:00:00 encounter Rosalie Collier Pedi atrics 17467 Joi Butler ty [facility] 2015-12-03 2015-12-03 Office Luigi [facility] Encounter/ Legacy 00:00:00 00:00:00 Visit Theresa [id number] Co mmuni [id number] [facility] 2015-12-01 2015-12-03 In-person Theresa Meyers [facility] [id number] Legacy 00:00:00 00:00:00 encounter Rosalie Collier Pedi atrics 90170 [facility] Keesha Hopper ty Health 2015-12-01 2015-12-01 [facility] Legacy 00:00:00 00:00:00 Visit Theresa [id number] Co mmuni [id number] ty Health 2015-12-01 2015-12-01 Office IGNACIA Meyers [facility] Encounter/ Legacy 00:00:00 00:00:00 Visit Theresa [id number] Co mmuni [id number] ty Health 2015-12-01 2015-12-01 Office IGNACIA Meyers [facility] Encounter/ Legacy 00:00:00 00:00:00 Visit Theresa [id number] Co mmuni [id number] ty Health 2015-12-01 2015-12-01 [facility] Legacy 00:00:00 00:00:00 Visit Rosalie Collier [id number] [facility] Keesha Hopper [id number] Health 2015-12-01 2015-12-01 [facility] Legacy 00:00:00 00:00:00 Visit Vesta [id number] Co mmuni [id number] Health 2015-09-08 2015-09-08 [facility]/ Legacy 00:00:00 00:00:00 Visit Theresa [id number] Co mmuni [id number] Health 2015-09-08 2015-09-08 Office Tehresa Meyers [facility] E ncounter/ Legacy 00:00:00 00:00:00 Visit Keesha Hopper [id number] [facility] [id number] Health 2015-09-08 2015-09-08 In-person Theresa Meyers [facility] [id number] Legacy 00:00:00 00:00:00 encounter Keesha Hopper Pediatrics 64009 [facility] 2015-06-08 2015-06-08 Office Nicho Talley [facility] Encounte r/ Legacy 00:00:00 00:00:00 Visit [id number] Com taran 809503 ty Health 2015-06-08 2015-06-08 Office [facility] Legacy 00:00:00 00:00:00 Visit [id number] Com taran 360591 ty Health 2015-06-08 2015-06-08 Office [facility]/ Legacy 00:00:00 00:00:00 Visit [id number] Com taran 303573 ty Health 2015-06-08 2015-06-08 Office Dima [facility] Encounter/ Legacy 00:00:00 00:00:00 Visit Mary [id number] Com taran 307077 ty Health 2015-06-08 2015-06-08 Office Nicho Talley [facility] Encounte r/ Legacy 00:00:00 00:00:00 Visit [id number] Com taran 932255 ty Health 2015-06-08 2015-06-08 Office Nicho Talley [facility] Encounte r/ Legacy 00:00:00 00:00:00 Visit [id number] Com taran 545213 ty Health 2015-06-08 2015-06-08 Office Nicho Talley [facility] Encounte r/ Legacy 00:00:00 00:00:00 Visit Parish Stanley [id number] [facility] 585133 [facility] 2015-06-08 2015-06-08 In-person Nicho Talley [facility] [phone] Legacy 00:00:00 00:00:00 encounter Parish [facility] 91730 [facility] Nicky Stanley ty Health 2015-03-30 2015-03-30 Office He, [facility] Encounte r/ Legacy 00:00:00 00:00:00 Visit Anisa [id number] Com taran 199606 ty Health 2015-03-20 2015-03-20 Office Italo [facility] Encounter/ Legacy 00:00:00 00:00:00 Visit Beverly [id number] Com taran 201486 ty Health 2015-03-20 2015-03-20 Office Beverly Puckett [facility] Encou nter/ Legacy 00:00:00 00:00:00 Visit Lily Bird [id number] [facility] 132279 Health 2015-03-20 2015-03-20 In-person Beverly Puckett [place] [address] [phone] Legacy 00:00:00 00:00:00 encounter Lily Bird Pediatrics 5 0831 [facility] Health 2015-03-08 2015-03-08 [facility]/ Legacy 00:00:00 00:00:00 Visit Anisa [id number] Com taran [id number] Health 2015-02-08 2015-02-08 Office Record, [facility] Encounter/ Legacy 00:00:00 00:00:00 Visit Babak [id number] Com taran Provider [id number] Health 2015-02-08 2015-02-08 Office Doug [facility] Encounter/ Legacy 00:00:00 00:00:00 Visit Naomy [id number] Com taran 860382 Health 2014-12-19 2014-12-19 Office Duy [facility] Encounter/ Legacy 00:00:00 00:00:00 Visit Francoise [id number] Com taran [id number] Health 2014-12-19 2014-12-19 Office Duy [facility] Encounter/ Legacy 00:00:00 00:00:00 Visit Francoise [id number] Com taran [id number] Health 2014-12-19 2014-12-19 Office Francoise Gordillo [facility] En counter/ Legacy 00:00:00 00:00:00 Visit Alton Purvis [id number] [facility] 172810 [facility] 2014-12-19 2014-12-19 In-person Francoise Gordillo [facility] t [id number] Legacy 00:00:00 00:00:00 encounter Alton Purvis [facility] 50 601 [facility] Jaden, [facility] 2014-12-15 2014-12-15 Office Status, Fax [facility] Encoun ter/ Legacy 00:00:00 00:00:00 Visit [id number] Com taran [id number] Health 2014-12-15 2014-12-15 Office Status, Fax [facility] Legacy 00:00:00 00:00:00 Visit [id number] Com taran 755438 Health 2014-12-15 2014-12-15 Office BalbirELIDA ELIDA Encount er/ Legacy 00:00:00 00:00:00 Visit Melissa Mora [id number] Co mmuni [id number] Health 2014-12-06 2014-12-09 [facility] [phone] Legacy 00:00:00 00:00:00 encounter Lia Shelton Pediatrics 50 519 [facility] 2014-12-06 2014-12-06 Office IsaelELIDA ELIDA Encounter/ Legacy 00:00:00 00:00:00 Visit Fatoumata [id number] Com taran 444148 Health 2014-12-06 2014-12-06 Office IsaelELIDA ELIDA Encounter/ Legacy 00:00:00 00:00:00 Visit Fatoumata [id number] Com taran 103526 Health 2014-12-06 2014-12-06 Office Fatoumata Kirkland [facility] Enc ounter/ Legacy 00:00:00 00:00:00 Visit Lia Shelton [id number] [facility] 753375 [facility] 2014-08-23 2014-08-25 In-person Camila Hernandez [facility] [phone] Legacy 00:00:00 00:00:00 encounter Nicky [facility] 94845 Dali Herbert [facility] 2014-08-23 2014-08-23 Office Camila Hernandez [facility] Enc ounter/ Legacy 00:00:00 00:00:00 Visit Nicky Stanley [id number] Dali Herbert 278054 [facility] 2014-06-22 2014-06-26 In-person Camila Hernandez [facility] [phone] Legacy 00:00:00 00:00:00 encounter Donna Moy Urgent [facility] 31380 [facility] 2014-06-22 2014-06-22 Office Hernandez, [facility] Encounter / Legacy 00:00:00 00:00:00 Visit Camila [id number] Com taran [id number] ty Health 2014-06-22 2014-06-22 Office Camila Hernandez [facility] Enc ounter/ Legacy 00:00:00 00:00:00 Visit Moy, Donna 35850 86819 [facility] 579756 Health 2014-06-15 2014-06-20 In-person Camila Hernandez [facility] [phone] Legacy 00:00:00 00:00:00 encounter Alton Purvis [facility] 41 [phone] Commun Donna Moy ty Health 2014-06-15 2014-06-15 Office David [facility] LC Encounter / Legacy 00:00:00 00:00:00 Visit Camila [id number] Com taran [id number] Health 2014-06-15 2014-06-15 Office Camila Hernandez [facility] Enc ounter/ Legacy 00:00:00 00:00:00 Visit Alton Purvis [id number] [facility] Chinmay Donna 693982 Health 2014-04-25 2014-04-25 Office Record, [facility] Encounter/ Legacy 00:00:00 00:00:00 Visit Locsergio [id number] Com taran Provider [id number] Health 2014-04-22 2014-04-22 Office Reyes, [facility] Encounter / Legacy 00:00:00 00:00:00 Visit Manda [id number] Com taran 194868 ty Health 2013-11-17 2013-11-17 Office Franc [facility] Encoun ter/ Legacy 00:00:00 00:00:00 Visit Luis Armando garibay [id number] Co mmuni [id number] ty Health 2013-11-17 2013-11-17 Office Luis Armando Burrell [facility] Encounter/ Legacy 00:00:00 00:00:00 Visit Emily Ricardo [id number] Communi 223321 Health 2013-11-17 2013-11-17 In-person Luis Armando Burrell [facility] [id number] Legacy 00:00:00 00:00:00 encounter Emily Ricardo [facility] 40 430 [facility] 2013-11-09 2013-11-09 Office Irene Champagne [facility] E ncounter/ Legacy 00:00:00 00:00:00 Visit Lida Shah [id number] [facility] 308075 ty Health 2013-11-05 2013-11-05 Office Ihsan [facility] Encount er/ Legacy 00:00:00 00:00:00 Visit [facility] [id number] Com taran 789999 Health 2013 2013-11-05 [facility] 446339-767 Legacy 00:00:00 00:00:00 encounter [facility]ik Esp[facility] 42636 [facility] 2013 Office Irene Champagne [facility] E ncounter/ Legacy 00:00:00 00:00:00 Visit Lida Shah [id number] [facility] 573403 Health 2013 2013 Office Ihsan [facility] Encount er/ Legacy 00:00:00 00:00:00 Visit [facility] [id number] Com taran 402991 Health 2013 2013 Office Ihsan [facility] Encount er/ Legacy 00:00:00 00:00:00 Visit [facility] [id number] Com taran 610625 Health 2013 2013 [facility] 00:00:00 00:00:00 Visit Monik Espino [id number] [facility] Nicky 308462 Health 2013-08-20 2013-08-20 Office [facility]/ Legacy 00:00:00 00:00:00 Visit Alton Purvis [id number] [facility] 431059 Health 2013-08-19 2013-08-19 Office IGNACIA HernandezH Encounter / Legacy 00:00:00 00:00:00 Visit Camila [id number] Com taran 279942 ty Health 2013-08-19 2013-08-19 Office David [facility] Encounter / Legacy 00:00:00 00:00:00 Visit Camila [id number] Com taran 447264 ty Health 2013-08-19 2013-08-19 Office Camila Hernandez [facility] Enc ounter/ Legacy 00:00:00 00:00:00 Visit RolfeAlton [id number] [facility] 002975 Health 2013-08-19 2013-08-19 In-person Camila Hernandez [facility] [id number] Legacy 00:00:00 00:00:00 encounter Rolfe, Alton [facility] 40 130 [facility] Health 2013-08-06 2013-08-06 Office Ihsan [facility] Encount er/ Legacy 00:00:00 00:00:00 Visit Irene [id number] Com taran 630922 Health 2013-08-04 2013-08-04 Office Ihsan [facility] Encount er/ Legacy 00:00:00 00:00:00 Visit Irene [id number] Com taran 372246 ty Health 2013-08-04 2013-08-04 Office Ihsan [facility] Encount er/ Legacy 00:00:00 00:00:00 Visit Irene [id number] Com taran 885486 ty Health 2013-08-04 2013-08-04 Office Irene Champagne [facility] E ncounter/ Legacy 00:00:00 00:00:00 Visit Lida Shah [id number] [facility] Alton Purvis 573805 Health 2013-08-04 2013-08-04 In-person [facility] [id number] Legacy 00:00:00 00:00:00 encounter Lida Shah Urgent Care 40 115 [facility] Yaniv Alton ty Health 2013-05-14 2013-05-14 Office Beverly Puckett [facility] Encou nter/ Legacy 00:00:00 00:00:00 Visit Shravan Johns [id number] [facility] 110826 [facility] 2013-05-14 2013-05-14 In-person Beverly Puckett [place] [address] 58392-227 Legacy 00:00:00 00:00:00 encounter Shravan Johns Pediatrics 32548 [facility] 2013-02-11 2013-02-11 Office [facility] / Legacy 00:00:00 00:00:00 Visit Ariela [id number] Com taran 647532 [facility] 2013-02-11 2013-02-11 Office [facility] En[facility] / Legacy 00:00:00 00:00:00 Visit Ariela [id number] Com taran 283479 [facility] 2013-02-11 2013-02-11 Office [facility] En[facility] / Legacy 00:00:00 00:00:00 Visit Ariela [id number] Com taran 031077 [facility] 2013-02-11 2013-02-11 Office [facility] En[facility] / Legacy 00:00:00 00:00:00 Visit Ariela [id number] Com taran 675562 [facility] 2013-02-11 2013-02-11 Office Ariela Mcgrath [facility] E ncounter/ Legacy 00:00:00 00:00:00 Visit Parish Jain [id number] 4 [facility] 800714 [facility] 2013-02-11 2013-02-11 In-person Ariela Mcgrath [facility] [id number] Legacy 00:00:00 00:00:00 encounter Parish Jain Pediatrics 3072 5 [facility] 2012-11-16 2012-11-16 Office Vesta Vernon [facility] En counter/ Legacy 00:00:00 00:00:00 Visit Emily Ricardo [id number] [facility] Moise Lee 515588 [facility] 2012-11-05 2012-11-07 In-person Vesta Vernon [facility] [id number] Legacy 00:00:00 00:00:00 encounter Rosalie Collier atrics 34805 [facility] Keesha Hopper [facility] 2012-11-05 2012-11-05 Office Vesta Vernon [facility] En counter/ Legacy 00:00:00 00:00:00 Visit Rosalie Collier [id number] [facility] 214813 [facility] 2012-09-30 2012-09-30 Office Jorge [facility] Encounter/ Legacy 00:00:00 00:00:00 Visit Katiuska [id number] Com taran 985759 [facility] 2012-09-30 2012-09-30 Office Jorge [facility] Encounter/ Legacy 00:00:00 00:00:00 Visit Katiuska [id number] Com taran 196053 [facility] 2012-09-30 2012-09-30 Office Jorge [facility] Encounter/ Legacy 00:00:00 00:00:00 Visit Katiuska [id number] Com taran 374313 [facility] 2012-09-30 2012-09-30 Office Katiuska Patel [facility] Enc ounter/ Legacy 00:00:00 00:00:00 Visit Parish Jain [id number] [facility] Dilma Kellogg 178204 [facility] 2012-09-30 2012-09-30 In-person Katiuska Patel [facility] 305405-723 Legacy 00:00:00 00:00:00 encounter Parish Jain Pediatrics 3031 3 [facility] Results Test Description Test Time Test Comments Results Result Comments Source Neisseria gonorrhoeae, throat culture 2023-03-17 17:38:00 Test Item Value Reference Range Interpretation Comme nts Neisseria gonorrhoeae, throat culture (test code = NOT DETECTED NOT DETECTED N 696-5) [facility] [id number] 17:38:00 Test Item Value Reference Range Interpretation Comments Neisseria gonorrhoeae DNA probe NOT DETECTED NOT DETECTED N (test code = 62161-0) [facility] [id number] 17:38:00 Test Item Value Reference Range Interpretation Comments chlamydia DNA probe (test code = NOT DETECTED NOT DETECTED N 03239-6) [facility] reagin antibody, [id number] 15:15:00 Test Item Value Reference Range Interpretation Comments rapid plasma reagin antibody, NON-REACTIVE NON-REACTIVE N serum (test code = 5291-0) [facility] (Chemiluminescent Microparticle Immuno Assay) 2023-03-17 15:15:00 Test Item Value Reference Range Interpretation Comments HIV-CMIA (Chemiluminescent NON-REACTIVE NON-REACTIVE N Microparticle Immuno Assay) (test code = 53300-7) [facility] gonorrhoeae DNA [id number] 10:56:00 Test Item Value Reference Range Interpretation Comments Neisseria gonorrhoeae DNA probe NOT DETECTED NOT DETECTED N (test code = 36684-8) [facility] [id number] 10:56:00 Test Item Value Reference Range Interpretation Comments chlamydia DNA probe (test code = NOT DETECTED NOT DETECTED N 45055-1) [facility] gonorrhoeae DNA [id number] 10:56:00 Test Item Value Reference Range Interpretation Comments Neisseria gonorrhoeae DNA probe NOT DETECTED NOT DETECTED N (test code = 82586-4) [facility] reagin antibody, [id number] 10:51:00 Test Item Value Reference Range Interpretation Comments rapid plasma reagin antibody, NON-REACTIVE NON-REACTIVE N serum (test code = 5291-0) [facility]hemoglobin A1C, blood, as % of total [id number] 10:51:00 Test Item Value Reference Range Interpretation Comments hemoglobin A1C, blood, as 5.0 % OF TOTAL HGB <5.7 N % of total hemoglobin (test code = 4548-4) [facility] Hospitalthyroid stimulating hormone, [id number] 10:51:00 Test Item Value Reference Range Interpretation Comments thyroid stimulating hormone, 1.97 u[IU]/mL N serum (test code = 3016-3) [facility] HospitalHepatitis C Antibody, Signal to [id number] 10:51:00 Test Item Value Reference Range Interpretation Comments Hepatitis C Antibody, 0.10 (unknown unit) <1.00 N Signal to Cut-Off (test code = 47568-3) [facility] C antibody, [id number] 10:51:00 Test Item Value Reference Range Interpretation Comments hepatitis C antibody, serum NON-REACTIVE NON-REACTIVE N (test code = 5199-5) [facility]hepatitis B surface [id number] 10:51:00 Test Item Value Reference Range Interpretation Comments hepatitis B surface antigen NON-REACTIVE NON-REACTIVE N (test code = 82321-5) [facility] Healthbasophils as percent of blood [id number] 10:51:00 Test Item Value Reference Range Interpretation Comments basophils as percent of blood 0.3 % N leukocytes (test code = 707-0) [facility]aleosinophils as percent of blood [id number] 10:51:00 Test Item Value Reference Range Interpretation Comments eosinophils as percent of blood 1.3 % N leukocytes (test code = 714-6) [facility] Healthmonocytes as percent of blood [id number] 10:51:00 Test Item Value Reference Range Interpretation Comments monocytes as percent of blood 7.9 % N leukocytes (test code = 5905-5) [facility]allymphocytes as percent of blood [id number] 10:51:00 Test Item Value Reference Range Interpretation Comments lymphocytes as percent of blood 35.6 % N leukocytes (test code = 736-9) [facility]neutrophils as percent of blood [id number] 10:51:00 Test Item Value Reference Range Interpretation Comments neutrophils as percent of blood 54.9 % N leukocytes (test code = 770-8) [facility]basophil count, [id number] 10:51:00 Test Item Value Reference Range Interpretation Comments basophil count, absolute (test 19 cells/uL 0-200 N code = 42760-2) [facility] Eosinophil [id number] 10:51:00 Test Item Value Reference Range Interpretation Comments Absolute Eosinophil count (test 81 cells/mcL 15-500 N code = 17148-0) [facility]Absolute Monocyte [id number] 10:51:00 Test Item Value Reference Range Interpretation Comments Absolute Monocyte count (test 490 cells/mcL 200-950 N code = 35634-1) [facility] Hospitallymphocytes, [id number] 10:51:00 Test Item Value Reference Range Interpretation Comments lymphocytes, absolute (test 2207 CELLS/UL 850-3900 N code = 71943-2) [facility] HospitalAbsolute Neutrophil [id number] 10:51:00 Test Item Value Reference Range Interpretation Comments Absolute Neutrophil count 3404 cells/mcL 9018-9397 N (test code = 73386-2) [facility] [id number] 10:51:00 Test Item Value Reference Range Interpretation Comments mean platelet volume (test code = 10.6 fL 7.5-12.5 N 776-5) [facility] Hospitalplatelet [id number] 10:51:00 Test Item Value Reference Range Interpretation Comments platelet count (test code = 263 THOUSAND/UL 140-400 N 777-3) [facility] Hospitalred blood cell distribution [id number] 10:51:00 Test Item Value Reference Range Interpretation Comments red blood cell distribution width 14.4 % 11.0-15.0 N (test code = 788-0) [facility] corpuscular hemoglobin concentration, [id number] 10:51:00 Test Item Value Reference Range Interpretation Comments mean corpuscular hemoglobin 32.9 G/DL 32.0-36.0 N concentration, RBC (test code = 786-4) [facility] corpuscular hemoglobin, [id number] 10:51:00 Test Item Value Reference Range Interpretation Comments mean corpuscular hemoglobin, RBC 26.8 pg 27.0-33.0 L (test code = 785-6) [facility] corpuscular volume, [id number] 10:51:00 Test Item Value Reference Range Interpretation Comments mean corpuscular volume, RBC (test 81.4 fL 80.0-100.0 N code = 787-2) [facility] Hospitalhematocrit, [id number] 10:51:00 Test Item Value Reference Range Interpretation Comments hematocrit, blood (test code = 4544-3) 40.7 % 35.0-45.0 N [facility] Hospitalhemoglobin, [id number] 10:51:00 Test Item Value Reference Range Interpretation Comments hemoglobin, blood (test code = 13.4 g/dL 11.7-15.5 N 718-7) [facility] Hospitalerythrocyte (RBC) [id number] 10:51:00 Test Item Value Reference Range Interpretation Comments erythrocyte (RBC) count (test 5.00 MILLION/UL 3.80-5.10 N code = 789-8) [facility] Hospitalleukocyte count, [id number] 10:51:00 Test Item Value Reference Range Interpretation Comments leukocyte count, blood (test 6.2 THOUSAND/UL 3.8-10.8 N code = 6690-2) [facility] Hospitalalanine aminotransferase (SGPT), [id number] 10:51:00 Test Item Value Reference Range Interpretation Comments alanine aminotransferase (SGPT), serum 21 1/L 5-32 N (test code = 1742-6) [facility] Hospitalaspartate aminotransferase (SGOT), [id number] 10:51:00 Test Item Value Reference Range Interpretation Comments aspartate aminotransferase (SGOT), 18 1/L 12-32 N serum (test code = 1920-8) [facility], [id number] 10:51:00 Test Item Value Reference Range Interpretation Comments alkaline phosphatase, serum (test code 56 1/L 36-128 N = 1783-0) [facility]bilirubin, serum, [id number] 10:51:00 Test Item Value Reference Range Interpretation Comments bilirubin, serum, total (test code 0.5 mg/dL 0.2-1.1 N = 1975-2) [facility]albumin/globulin ratio, [id number] 10:51:00 Test Item Value Reference Range Interpretation Comments albumin/globulin ratio, serum 1.3 (calc) 1.0-2.5 N (test code = 1759-0) [facility]globulins, serum, [id number] 10:51:00 Test Item Value Reference Range Interpretation Comments globulins, serum, total (test 3.3 G/DL (CALC) 2.0-3.8 N code = 2336-6) [facility]albumin, [id number] 10:51:00 Test Item Value Reference Range Interpretation Comments albumin, serum (test code = 1751-7) 4.3 g/dL 3.6-5.1 N [facility]protein, total, [id number] 10:51:00 Test Item Value Reference Range Interpretation Comments protein, total, serum (test code = 7.6 g/dL 6.3-8.2 N 2885-2) [facility]calcium, [id number] 10:51:00 Test Item Value Reference Range Interpretation Comments calcium, serum (test code = 2000-02) 9.4 mg/dL 8.9-10.4 N [facility]carbon dioxide, venous [id number] 10:51:00 Test Item Value Reference Range Interpretation Comments carbon dioxide, venous blood (test 26 mmol/L 20-32 N code = 2026-1) [facility] Healthchloride, [id number] 10:51:00 Test Item Value Reference Range Interpretation Comments chloride, serum (test code = 105 mmol/L 98-110 N 2074-0) [facility]potassium, [id number] 10:51:00 Test Item Value Reference Range Interpretation Comments potassium, serum (test code = 4.4 mmol/L 3.8-5.1 N 2822-3) [facility]alsodium, [id number] 10:51:00 Test Item Value Reference Range Interpretation Comments sodium, serum (test code = 295-2) 138 mmol/L 135-146 N [facility] Hospitalurea nitrogen/creatinine ratio, [id number] 10:51:00 Test Item Value Reference Range Interpretation Comments urea NOT APPLICABLE (calc) 6-22 nitrogen/creatinine ratio, serum (test code = 3097-3) [facility] HospitalEstimated Glomerular Filtration Rate (calc)2022-12-24 10:51:00 Test Item Value Reference Range Interpretation Comments Estimated Glomerular 129 See_Comment N [Autom ated message] Filtration Rate mL/min/{1.73 The [facility] (calc) (test code = m2} generate d this 88194-2) result transmit claudia reference range : > OR = 60. The reference range was not used to interpret this result as normal/abnormal . [facility]creatinine, [id number] 10:51:00 Test Item Value Reference Range Interpretation Comments creatinine, serum (test code = 0.67 mg/dL 0.50-0.96 N 0-0) [facility] Hospitalurea nitrogen, [id number] 10:51:00 Test Item Value Reference Range Interpretation Comments urea nitrogen, blood (test code = 17 mg/dL 7-20 N 3094-0) [facility] Hospitalblood glucose, [id number] 10:51:00 Test Item Value Reference Range Interpretation Comments blood glucose, random (test code = 86 mg/dL 65-99 N 2339-0) [facility] HospitalHIV-CMIA (Chemiluminescent Microparticle Immuno Assay) 2022-12-24 10:51:00 Test Item Value Reference Range Interpretation Comments HIV-CMIA (Chemiluminescent NON-REACTIVE NON-REACTIVE N Microparticle Immuno Assay) (test code = 53420-1) [facility]cholesterol, non-HDL, [id number] 10:51:00 Test Item Value Reference Range Interpretation Comments cholesterol, non-HDL, total 89 MG/DL (CALC) <120 N (test code = 22078) [facility]cholesterol/HDL ratio, serum, [id number] 10:51:00 Test Item Value Reference Range Interpretation Comments cholesterol/HDL ratio, serum, 2.9 (calc) <5.0 N percent (test code = 2404) [facility] HospitalLDL cholesterol, [id number] 10:51:00 Test Item Value Reference Range Interpretation Comments LDL cholesterol, serum (test 73 MG/DL (CALC) <110 N code = 2089-1) [facility]triglyceride, serum, [id number] 10:51:00 Test Item Value Reference Range Interpretation Comments triglyceride, serum, fasting (test 77 mg/dL <90 N code = 2571-8) [facility] HospitalHDL cholesterol, [id number] 10:51:00 Test Item Value Reference Range Interpretation Comments HDL cholesterol, serum (test code = 48 mg/dL >45 N 5-9) [facility]cholesterol, [id number] 10:51:00 Test Item Value Reference Range Interpretation Comments cholesterol, serum (test code = 137 mg/dL <170 N 2093-3) [facility] Hospitalhepatitis C antibody, [id number] 10:51:00 Test Item Value Reference Range Interpretation Comments hepatitis C antibody, serum NON-REACTIVE NON-REACTIVE N (test code = 48028-1) [facility] HospitalNeisseria gonorrhoeae DNA [id number] 19:54:00 Test Item Value Reference Range Interpretation Comments Neisseria gonorrhoeae DNA probe NOT DETECTED NOT DETECTED N (test code = 51859-0) [facility] Hospitalchlamydia DNA [id number] 19:54:00 Test Item Value Reference Range Interpretation Comments chlamydia DNA probe (test code = NOT DETECTED NOT DETECTED N 54428-0) [facility] HospitalNeisseria gonorrhoeae DNA [id number] 19:54:00 Test Item Value Reference Range Interpretation Comments Neisseria gonorrhoeae DNA probe NOT DETECTED NOT DETECTED N (test code = 14580-8) [facility] Hospitalurine [id number] 19:52:00 Test Item Value Reference Range Interpretation Comments urine culture (test Mixed genital vahid code = 630-4) isolated. These superficial [facility] Hospitalhyaline casts, [id number] 19:52:00 Test Item Value Reference Range Interpretation Comments hyaline casts, urine (test code = NONE SEEN NONE SEEN N 5796-8) [facility] Hospitalbacteria, urine [id number] 19:52:00 Test Item Value Reference Range Interpretation Comments bacteria, urine microscopy (test MODERATE NONE SEEN A code = 5769-5) [facility]alsquamous epithelial [id number] 19:52:00 Test Item Value Reference Range Interpretation Comments squamous epithelial 20-40 /HPF See_Comment A [Automa claudia message] cells (test code = The syste m which 4505) generated this result transmitted ref erence range: < OR = 5 . The reference range was not used to int erpret this result as normal/abnormal . [facility] HospitalRBC, [id number] 19:52:00 Test Item Value Reference Range Interpretation Comments RBC, Urine (test NONE SEEN /HPF See_Comment N [Automat ed message] code = 05238-3) [facility] generated this result transmitted ref erence range: < OR = 2 . The reference range was not used to int erpret this result as normal/abnormal . [facility] HospitalWBC urine on [id number] 19:52:00 Test Item Value Reference Range Interpretation Comments WBC urine on 6-10 /HPF See_Comment A [Automated mes mary lou] microscopy (test code The sy stem which = 1016) generated this result transmitted ref erence range: < OR = 5 . The reference range was not used to int erpret this result as normal/abnormal . [facility] Hospitalleukocyte esterase, urine, by [id number] 19:52:00 Test Item Value Reference Range Interpretation Comments leukocyte esterase, urine, by NEGATIVE NEGATIVE N dipstick (test code = 5799-2) [facility] Hospitalnitrite, urine, fucrnwsiilbudvhl7958-60-65 19:52:00 Test Item Value Reference Range Interpretation Comments nitrite, urine, semiquantitative NEGATIVE NEGATIVE N (test code = 5802-4) [facility]protein, urine, semiquantitative (dipstick)2022-12-05 19:52:00 Test Item Value Reference Range Interpretation Comments protein, urine, semiquantitative NEGATIVE NEGATIVE N (dipstick) (test code = 1753-3) [facility] HospitalOccult Blood, [id number] 19:52:00 Test Item Value Reference Range Interpretation Comments Occult Blood, urine (test code = NEGATIVE NEGATIVE N 3575996) [facility] Hospitalketones, urine, by test [id number] 19:52:00 Test Item Value Reference Range Interpretation Comments ketones, urine, by test strip (test NEGATIVE NEGATIVE N code = 5797-6) [facility] Hospitalbilirubin, [id number] 19:52:00 Test Item Value Reference Range Interpretation Comments bilirubin, urine (test code = NEGATIVE NEGATIVE N 5770-3) [facility] Hospitalglucose, urine, [id number]6 19:52:00 Test Item Value Reference Range Interpretation Comments glucose, urine, semiquantitative NEGATIVE NEGATIVE N (test code = 5792-7) [facility] HospitalpH, urine, iicgwjgmfxzzqcub2880-14-82 19:52:00 Test Item Value Reference Range Interpretation Comments pH, urine, semiquantitative 6.5 (unknown 5.0-8.0 N (test code = 5803-2) unit) [facility]alspecific gravity, [id number] 19:52:00 Test Item Value Reference Range Interpretation Comments specific gravity, urine 1.029 (unknown unit) 1.001-1.035 N (test code = 5811-5) [facility] Hospitalappearance, [id number] 19:52:00 Test Item Value Reference Range Interpretation Comments appearance, urine (test code = 5767-9) CLEAR CLEAR N [facility] Hospitalurine [id number] 19:52:00 Test Item Value Reference Range Interpretation Comments urine color (test code = 5778-6) YELLOW YELLOW N [facility] HospitalTRICHOMONAS VAGINALIS DNA [id number] 18:16:00 Test Item Value Reference Range Interpretation Comments TRICHOMONAS VAGINALIS DNA PROBE NOT DETECTED NOT DETECTED N (test code = 02056-8) [facility] HospitalNeisseria gonorrhoeae DNA [id number] 18:06:00 Test Item Value Reference Range Interpretation Comments Neisseria gonorrhoeae DNA probe NOT DETECTED NOT DETECTED N (test code = 26630-0) [facility] Hospitalchlamydia DNA [id number] 18:06:00 Test Item Value Reference Range Interpretation Comments chlamydia DNA probe (test code = NOT DETECTED NOT DETECTED N 17477-2) [facility] HospitalNeisseria gonorrhoeae DNA [id number] 18:06:00 Test Item Value Reference Range Interpretation Comments Neisseria gonorrhoeae DNA probe NOT DETECTED NOT DETECTED N (test code = 07964-2) [facility] HospitalpH, urine, faxqatlgqhdqotoy0254-35-83 15:07:30 Test Item Value Reference Range Interpretation Comments pH, urine, semiquantitative 5.5 (unknown (test code = 5803-2) unit) [facility]alspecific gravity, [id number] 15:07:30 Test Item Value Reference Range Interpretation Comments specific gravity, urine 1.025 (unknown unit) (test code = 5811-5) [facility] Hospitalglucose, urine, cyvggshrcdgubcgs6273-64-99 15:07:30 Test Item Value Reference Range Interpretation Comments glucose, urine, semiquantitative negative (test code = 5792-7) [facility] Hospitalbilirubin, [id number] 15:07:30 Test Item Value Reference Range Interpretation Comments bilirubin, urine (test code = negative 5770-3) [facility] Hospitalketones, urine, by test [id number] 15:07:30 Test Item Value Reference Range Interpretation Comments ketones, urine, by test strip moderate (50) (test code = 5797-6) [facility] Hospitalblood in urine (hemoglobin) by wuqacqku2254-22-95 15:07:30 Test Item Value Reference Range Interpretation Comments blood in urine (hemoglobin) by negative dipstick (test code = 4998) [facility] Hospitalprotein, urine, semiquantitative (dipstick)2022-10-23 15:07:30 Test Item Value Reference Range Interpretation Comments protein, urine, semiquantitative negative (dipstick) (test code = 1753-3) [facility] Hospitalurobilinogen, urine, semiquantitative (dipstick) 2022-10-23 15:07:30 Test Item Value Reference Range Interpretation Comments urobilinogen, urine, negative semiquantitative (dipstick) (test code = 5818-0) [facility] Hospitalnitrite, urine, bsscccahuaqkwcig9401-17-92 15:07:30 Test Item Value Reference Range Interpretation Comments nitrite, urine, semiquantitative negative (test code = 5802-4) [facility] Hospitalleukocyte esterase, urine, by [id number] 15:07:30 Test Item Value Reference Range Interpretation Comments leukocyte esterase, urine, by negative dipstick (test code = 5799-2) [facility] Hospitalappearance, [id number] 15:07:30 Test Item Value Reference Range Interpretation Comments appearance, urine (test code = 5767-9) clear [facility] Hospitalurine [id number] 15:07:30 Test Item Value Reference Range Interpretation Comments urine color (test code = 5778-6) yellow [facility] Hospitalbeta HCG, urine, parmfeovkaqxhmhf8699-16-11 15:07:30 Test Item Value Reference Range Interpretation Comments beta HCG, urine, semiquantitative negative (test code = 2106-3) [facility] Hospitalrapid plasma reagin antibody, [id number] 12:01:00 Test Item Value Reference Range Interpretation Comments rapid plasma reagin antibody, NON-REACTIVE NON-REACTIVE N serum (test code = 5291-0) [facility] HospitalHepatitis C Antibody, Signal to [id number]-[id number] 12:01:00 Test Item Value Reference Range Interpretation Comments Hepatitis C Antibody, Signal to Cut-Off <0.02 <1.00 N (test code = 56669-9) [facility] Hospitalhepatitis C antibody, [id number] 12:01:00 Test Item Value Reference Range Interpretation Comments hepatitis C antibody, serum NON-REACTIVE NON-REACTIVE N (test code = 23632-5) [facility] Hospitalhepatitis C antibody, [id number] 12:01:00 Test Item Value Reference Range Interpretation Comments hepatitis C antibody, serum NON-REACTIVE NON-REACTIVE N (test code = 5199-5) [facility] HospitalNeisseria gonorrhoeae DNA [id number] 16:44:00 Test Item Value Reference Range Interpretation Comments Neisseria gonorrhoeae DNA probe DETECTED NOT DETECTED A (test code = 87331-3) [facility] Hospitalchlamydia DNA [id number] 16:44:00 Test Item Value Reference Range Interpretation Comments chlamydia DNA probe (test code = DETECTED NOT DETECTED A 84253-4) [facility] HospitalNeisseria gonorrhoeae DNA [id number] 16:44:00 Test Item Value Reference Range Interpretation Comments Neisseria gonorrhoeae DNA probe DETECTED NOT DETECTED A (test code = 26345-1) [facility] B surface [id number] 16:00:00 Test Item Value Reference Range Interpretation Comments hepatitis B surface antigen NON-REACTIVE NON-REACTIVE N (test code = 55692-9) [facility] HospitalHIV-CMIA (Chemiluminescent Microparticle Immuno Assay) 2022-09-26 16:00:00 Test Item Value Reference Range Interpretation Comments HIV-CMIA (Chemiluminescent NON-REACTIVE NON-REACTIVE N Microparticle Immuno Assay) (test code = 75817-1) [facility] Hospitalbeta HCG, urine, iwdpebcgfjlvmfvx5677-05-82 13:19:48 Test Item Value Reference Range Interpretation Comments beta HCG, urine, semiquantitative negative (test code = 2106-3) [facility]beta HCG, urine, mqsilumlchmczcgd9864-86-67 10:59:37 Test Item Value Reference Range Interpretation Comments beta HCG, urine, semiquantitative negative (test code = 2106-3) [facility] Hospitalrapid plasma reagin antibody, [id number] 15:42:00 Test Item Value Reference Range Interpretation Comments rapid plasma reagin antibody, NON-REACTIVE NON-REACTIVE N serum (test code = 5291-0) [facility] to Hkl-Awz6555-21-01 15:42:00 Test Item Value Reference Range Interpretation Comments Hepatitis C Antibody, 0.04 (unknown unit) <1.00 N Signal to Cut-Off (test code = 02455-3) [facility] Healthhepatitis C antibody, [id number] 15:42:00 Test Item Value Reference Range Interpretation Comments hepatitis C antibody, serum NON-REACTIVE NON-REACTIVE N (test code = 77552-9) [facility] [id number] 15:42:00 Test Item Value Reference Range Interpretation Comments hepatitis B surface antigen NON-REACTIVE NON-REACTIVE N (test code = 92394-5) [facility] HospitalNeisseria gonorrhoeae DNA [id number] 15:42:00 Test Item Value Reference Range Interpretation Comments Neisseria gonorrhoeae DNA probe NOT DETECTED NOT DETECTED N (test code = 47218-5) [facility] Hospitalchlamydia DNA [id number] 15:42:00 Test Item Value Reference Range Interpretation Comments chlamydia DNA probe (test code = NOT DETECTED NOT DETECTED N 45947-4) [facility] HospitalHIV-CMIA (Chemiluminescent Microparticle Immuno Assay) 2022-06-20 15:42:00 Test Item Value Reference Range Interpretation Comments HIV-CMIA (Chemiluminescent NON-REACTIVE NON-REACTIVE N Microparticle Immuno Assay) (test code = 64943-0) [facility], [id number] 15:42:00 Test Item Value Reference Range Interpretation Comments hepatitis C antibody, serum NON-REACTIVE NON-REACTIVE N (test code = 5199-5) [facility] HospitalNeisseria gonorrhoeae DNA [id number] 15:42:00 Test Item Value Reference Range Interpretation Comments Neisseria gonorrhoeae DNA probe NOT DETECTED NOT DETECTED N (test code = 72268-0) [facility] HospitalNeisseria gonorrhoeae DNA [id number] 18:47:00 Test Item Value Reference Range Interpretation Comments Neisseria gonorrhoeae DNA probe NOT DETECTED NOT DETECTED N (test code = 70556-0) [facility] HospitalNeisseria gonorrhoeae DNA [id number] 18:47:00 Test Item Value Reference Range Interpretation Comments Neisseria gonorrhoeae DNA probe NOT DETECTED NOT DETECTED N (test code = 72381-0) [facility]chlamydia DNA [id number] 18:47:00 Test Item Value Reference Range Interpretation Comments chlamydia DNA probe (test code = NOT DETECTED NOT DETECTED N 98058-8) [facility] HospitalNeisseria gonorrhoeae DNA [id number] 18:39:00 Test Item Value Reference Range Interpretation Comments Neisseria gonorrhoeae DNA probe NOT DETECTED NOT DETECTED N (test code = 95204-6) [facility] HospitalNeisseria gonorrhoeae DNA [id number] 18:39:00 Test Item Value Reference Range Interpretation Comments Neisseria gonorrhoeae DNA probe NOT DETECTED NOT DETECTED N (test code = 21846-8) [facility]chlamydia DNA [id number] 18:39:00 Test Item Value Reference Range Interpretation Comments chlamydia DNA probe (test code = NOT DETECTED NOT DETECTED N 01084-4) [facility]beta HCG, urine, reurrksavgmddfth8205-20-54 11:31:35 Test Item Value Reference Range Interpretation Comments beta HCG, urine, semiquantitative negative (test code = 2106-3) [facility] HospitalNeisseria gonorrhoeae DNA [id number] 16:09:00 Test Item Value Reference Range Interpretation Comments Neisseria gonorrhoeae DNA probe NOT DETECTED NOT DETECTED N (test code = 77423-4) [facility] HospitalNeisseria gonorrhoeae DNA [id number] 16:09:00 Test Item Value Reference Range Interpretation Comments Neisseria gonorrhoeae DNA probe NOT DETECTED NOT DETECTED N (test code = 66691-8) [facility]chlamydia DNA [id number] 16:09:00 Test Item Value Reference Range Interpretation Comments chlamydia DNA probe (test code = NOT DETECTED NOT DETECTED N 36806-3) [facility]beta HCG, urine, cbkufhmhipntqgkt0101-54-91 13:06:53 Test Item Value Reference Range Interpretation Comments beta HCG, urine, semiquantitative negative (test code = 2106-3) [facility]pid [facility] reagin antibody, [id number] 00:00:00 Test Item Value Reference Range Interpretation Comments rapid plasma reagin antibody, NON-REACTIVE NON-REACTIVE N serum (test code = 5291-0) [facility]HIV-CMIA (Chemiluminescent Microparticle Immuno Assay) 2022-03-12 00:00:00 Test Item Value Reference Range Interpretation Comments HIV-CMIA (Chemiluminescent NON-REACTIVE NON-REACTIVE N Microparticle Immuno Assay) (test code = 49072-6) [facility] HospitalNeisseria gonorrhoeae DNA [id number] 12:55:00 Test Item Value Reference Range Interpretation Comments Neisseria gonorrhoeae DNA probe Negative Negative (test code = 94966-1) [facility]chlamydia DNA [id number] 12:55:00 Test Item Value Reference Range Interpretation Comments chlamydia DNA probe (test code = Positive Negative A 07385-2) [facility] HospitalNeisseria gonorrhoeae DNA [id number] 12:55:00 Test Item Value Reference Range Interpretation Comments Neisseria gonorrhoeae DNA probe Negative Negative (test code = 80431-2) [facility] Hospitalpid plasma reagin antibody, [id number] 10:59:00 Test Item Value Reference Range Interpretation Comments rapid plasma reagin antibody, Non Reactive Non Reactive serum (test code = 5291-0) [facility]HIV-CMIA (Chemiluminescent Microparticle Immuno Assay) 2022-01-10 10:59:00 Test Item Value Reference Range Interpretation Comments HIV-CMIA (Chemiluminescent Non Reactive Non Reactive Microparticle Immuno Assay) (test code = 06907-5) [facility]beta HCG, urine, hupnbinaquggfwjx3238-90-53 09:19:30 Test Item Value Reference Range Interpretation Comments beta HCG, urine, semiquantitative negative (test code = 2106-3) [facility], [id number] 17:32:00 Test Item Value Reference Range Interpretation Comments hepatitis C antibody, serum (test code <0.1 0.0-0.9 = 50877-3) [facility]hepatitis C antibody, [id number] 17:32:00 Test Item Value Reference Range Interpretation Comments hepatitis C antibody, serum (test code <0.1 0.0-0.9 = 5199-5) [facility]rapid plasma reagin antibody, [id number] 17:32:00 Test Item Value Reference Range Interpretation Comments rapid plasma reagin antibody, Non Reactive Non Reactive serum (test code = 5291-0) [facility]pat[facility] surface [id number] 17:32:00 Test Item Value Reference Range Interpretation Comments hepatitis B surface antigen (test Negative Negative code = 53603-2) [facility]HIV-CMIA (Chemiluminescent Microparticle Immuno Assay) 2021-04-01 17:32:00 Test Item Value Reference Range Interpretation Comments HIV-CMIA (Chemiluminescent Non Reactive Non Reactive Microparticle Immuno Assay) (test code = 38274-3) [facility] HospitalNeisseria gonorrhoeae, throat [id number] 20:24:00 Test Item Value Reference Range Interpretation Comments Neisseria gonorrhoeae, throat Positive Negative A culture (test code = 696-5) [facility] Hospitalurine iwjdyic6905-34-01 20:06:00 Test Item Value Reference Range Interpretation Comments urine culture (test code = 630-4) MUG [facility] Hospitalbeta streptococcus screen, [id number] 19:22:00 Test Item Value Reference Range Interpretation Comments beta streptococcus screen, throat Negative (test code = 40288-1) [facility]beta streptococcus screen, [id number] 19:22:00 Test Item Value Reference Range Interpretation Comments beta streptococcus screen, throat Negative (test code = 546-2) [facility]beta HCG, urine, nppfutojcpijiwiz0807-67-44 16:51:00 Test Item Value Reference Range Interpretation Comments beta HCG, urine, semiquantitative negative (test code = 2106-3) [facility] Hospitalglucose, urine, nvirpuqoswfylptb7622-23-59 16:51:00 Test Item Value Reference Range Interpretation Comments glucose, urine, semiquantitative negative (test code = 5792-7) [facility] Hospitalbilirubin, [id number] 16:51:00 Test Item Value Reference Range Interpretation Comments bilirubin, urine (test code = negative 5770-3) [facility], by test [id number] 16:51:00 Test Item Value Reference Range Interpretation Comments ketones, urine, by test strip (test negative code = 5797-6) [facility]blood [facility] urine (hemoglobin) by qqrgdkld0854-44-82 16:51:00 Test Item Value Reference Range Interpretation Comments blood in urine (hemoglobin) by negative dipstick (test code = 4998) [facility]protein, urine, semiquantitative (dipstick)2021-03-17 16:51:00 Test Item Value Reference Range Interpretation Comments protein, urine, semiquantitative negative (dipstick) (test code = 1753-3) [facility]urobilinogen, urine, semiquantitative (dipstick) 2021-03-17 16:51:00 Test Item Value Reference Range Interpretation Comments urobilinogen, urine, negative semiquantitative (dipstick) (test code = 5818-0) [facility]nitrite, urine, pneidvjclwjhskap8279-89-48 16:51:00 Test Item Value Reference Range Interpretation Comments nitrite, urine, semiquantitative negative (test code = 5802-4) [facility]leukocyte esterase, urine, by imxjkhvo3717-33-35 16:51:00 Test Item Value Reference Range Interpretation Comments leukocyte esterase, urine, by negative dipstick (test code = 5799-2) [facility]appearance, [id number] 16:51:00 Test Item Value Reference Range Interpretation Comments appearance, urine (test code = 5767-9) clear [facility] Hospitalurine jhpol9700-01-64 16:51:00 Test Item Value Reference Range Interpretation Comments urine color (test code = 5778-6) yellow [facility]blood in urine (hemoglobin) by ftptyjtx6596-34-01 16:51:00 Test Item Value Reference Range Interpretation Comments blood in urine (hemoglobin) by negative dipstick (test code = 4998) [facility] HospitalNeisseria gonorrhoeae DNA zyrbn4697-76-56 12:49:00 Test Item Value Reference Range Interpretation Comments Neisseria gonorrhoeae DNA probe Negative Negative (test code = 25406-5) [facility]chlamydia DNA abwld1757-07-89 12:49:00 Test Item Value Reference Range Interpretation Comments chlamydia DNA probe (test code = Negative Negative 17164-7) [facility] HospitalNeisseria gonorrhoeae DNA [id number] 12:49:00 Test Item Value Reference Range Interpretation Comments Neisseria gonorrhoeae DNA probe Negative Negative (test code = 21917-6) [facility]beta HCG, urine, hglygcfmdfkwjnsf9676-02-30 09:38:03 Test Item Value Reference Range Interpretation Comments beta HCG, urine, semiquantitative negative (test code = 2106-3) [facility]beta HCG, urine, upwhlaxqforkgfqb9011-33-18 11:27:40 Test Item Value Reference Range Interpretation Comments beta HCG, urine, semiquantitative negative (test code = 2106-3) [facility]beta HCG, urine, vcezuesywolmyjfg5484-63-33 10:17:55 Test Item Value Reference Range Interpretation Comments beta HCG, urine, semiquantitative negative (test code = 2106-3) [facility] Hospitalhepatitis C antibody, aqblq2269-54-95 11:59:00 Test Item Value Reference Range Interpretation Comments hepatitis C antibody, serum (test code <0.1 0.0-0.9 = 5199-5) [facility] Hospitalrapid plasma reagin antibody, zelyg1519-24-18 11:59:00 Test Item Value Reference Range Interpretation Comments rapid plasma reagin antibody, Non Reactive Non Reactive serum (test code = 5291-0) [facility] Hospitalimmature granulocytes, percentage of total cells, blood 2020-05-03 11:59:00 Test Item Value Reference Range Interpretation Comments immature granulocytes, percentage of 0 % total cells, blood (test code = 46968-6) [facility] Hospitalbasophil count, njnfnkqq8889-76-42 11:59:00 Test Item Value Reference Range Interpretation Comments basophil count, absolute (test 0.0 x10E3/uL 0.0-0.3 code = 26106-2) [facility] HospitalEosinophil Absolute Qpxpx9105-68-64 11:59:00 Test Item Value Reference Range Interpretation Comments Eosinophil Absolute Count (test 0.2 X10E3/UL 0.0-0.4 code = 23957-3) [facility] Hospitalmonocyte count, blood, mrxkxepue4030-42-49 11:59:00 Test Item Value Reference Range Interpretation Comments monocyte count, blood, automated 0.4 X10E3/UL 0.1-0.9 (test code = 742-7) [facility]allymphocyte count, blood, bijjtccip4540-45-65 11:59:00 Test Item Value Reference Range Interpretation Comments lymphocyte count, blood, 2.0 X10E3/UL 0.7-3.1 automated (test code = 731-0) [facility] HospitalAbsolute Dsfaemgowhi1735-22-24 11:59:00 Test Item Value Reference Range Interpretation Comments Absolute Neutrophils (test code 3.8 X10E3/UL 1.4-7.0 = 97405-9) [facility] Hospitalbasophils as percent of blood gowxrsexqz6600-11-17 11:59:00 Test Item Value Reference Range Interpretation Comments basophils as percent of blood 0 % leukocytes (test code = 707-0) [facility]aleosinophils as percent of blood frydiopcgz7253-98-13 11:59:00 Test Item Value Reference Range Interpretation Comments eosinophils as percent of blood 2 % leukocytes (test code = 713-8) [facility] Healthmonocytes as percent of blood zwipauvztf5026-19-69 11:59:00 Test Item Value Reference Range Interpretation Comments monocytes as percent of blood 7 % leukocytes (test code = 5905-5) [facility]allymphocytes as percent of blood jkruoseqog3224-38-62 11:59:00 Test Item Value Reference Range Interpretation Comments lymphocytes as percent of blood 32 % leukocytes (test code = 736-9) [facility] Hospitalneutrophils as percent of blood rymjtfbelj6450-88-81 11:59:00 Test Item Value Reference Range Interpretation Comments neutrophils as percent of blood 59 % leukocytes (test code = 770-8) [facility] Hospitalplatelet uwret0655-70-01 11:59:00 Test Item Value Reference Range Interpretation Comments platelet count (test code = 244 X10E3/UL 150-450 777-3) [facility] Hospitalred blood cell distribution yrlqy5673-27-19 11:59:00 Test Item Value Reference Range Interpretation Comments red blood cell distribution width 13.6 % 11.7-15.4 (test code = 788-0) [facility] corpuscular hemoglobin concentration, [id number] 11:59:00 Test Item Value Reference Range Interpretation Comments mean corpuscular hemoglobin 32.5 G/DL 31.5-35.7 concentration, RBC (test code = 786-4) [facility] corpuscular hemoglobin, [id number] 11:59:00 Test Item Value Reference Range Interpretation Comments mean corpuscular hemoglobin, RBC 25.7 pg 26.6-33.0 L (test code = 785-6) [facility] corpuscular volume, [id number] 11:59:00 Test Item Value Reference Range Interpretation Comments mean corpuscular volume, RBC (test code 79 fL 79-97 = 787-2) [facility] Hospitalhematocrit, pwejn4283-69-62 11:59:00 Test Item Value Reference Range Interpretation Comments hematocrit, blood (test code = 4544-3) 36.3 % 34.0-46.6 [facility] Hospitalhemoglobin, [id number] 11:59:00 Test Item Value Reference Range Interpretation Comments hemoglobin, blood (test code = 11.8 g/dL 11.1-15.9 718-7) [facility] Hospitalerythrocyte (RBC) irfgy6413-47-00 11:59:00 Test Item Value Reference Range Interpretation Comments erythrocyte (RBC) count (test 4.59 X10E6/UL 3.77-5.28 code = 789-8) [facility] Hospitalleukocyte count, ibnye9529-81-56 11:59:00 Test Item Value Reference Range Interpretation Comments leukocyte count, blood (test 6.5 X10E3/UL 3.4-10.8 code = 6690-2) [facility] Hospitalhepatitis C antibody, sdcla2874-92-83 11:59:00 Test Item Value Reference Range Interpretation Comments hepatitis C antibody, serum (test code <0.1 0.0-0.9 = 62985-8) [facility] Hospitalhepatitis B surface simcygt3709-06-46 11:59:00 Test Item Value Reference Range Interpretation Comments hepatitis B surface antigen (test Negative Negative code = 20768-6) [facility] HospitalHIV-CMIA (Chemiluminescent Microparticle Immuno Assay) 2020-05-03 11:59:00 Test Item Value Reference Range Interpretation Comments HIV-CMIA (Chemiluminescent Non Reactive Non Reactive Microparticle Immuno Assay) (test code = 45185-3) [facility]chlamydia DNA [id number] 11:03:00 Test Item Value Reference Range Interpretation Comments chlamydia DNA probe (test code = Negative Negative 64948-4) [facility] HospitalNeisseria gonorrhoeae DNA ygojv4393-83-92 11:03:00 Test Item Value Reference Range Interpretation Comments Neisseria gonorrhoeae DNA probe Negative Negative (test code = 40719-5) [facility] HospitalNeisseria gonorrhoeae DNA arjkk8764-35-17 11:03:00 Test Item Value Reference Range Interpretation Comments Neisseria gonorrhoeae DNA probe Negative Negative (test code = 00041-1) [facility]alspecific gravity, mpooz1549-54-02 10:00:19 Test Item Value Reference Range Interpretation Comments specific gravity, urine 1.025 (unknown unit) (test code = 5811-5) [facility] HospitalpH, urine, ehpdxobbbdrlvbld0653-33-81 10:00:19 Test Item Value Reference Range Interpretation Comments pH, urine, semiquantitative 5.5 (unknown (test code = 5803-2) unit) [facility] Hospitalglucose, urine, jddydtwciiifzhwe1088-31-22 10:00:19 Test Item Value Reference Range Interpretation Comments glucose, urine, semiquantitative negative (test code = 5792-7) [facility] Hospitalbilirubin, fziyo0147-66-93 10:00:19 Test Item Value Reference Range Interpretation Comments bilirubin, urine (test code = negative 5770-3) [facility]alketones, urine, by test oebap5218-19-94 10:00:19 Test Item Value Reference Range Interpretation Comments ketones, urine, by test strip (test negative code = 5797-6) [facility] Hospitalprotein, urine, semiquantitative (dipstick)2020-05-03 10:00:19 Test Item Value Reference Range Interpretation Comments protein, urine, semiquantitative negative (dipstick) (test code = 1753-3) [facility] Hospitalurobilinogen, urine, semiquantitative (dipstick) 2020-05-03 10:00:19 Test Item Value Reference Range Interpretation Comments urobilinogen, urine, negative semiquantitative (dipstick) (test code = 5818-0) [facility] Hospitalnitrite, urine, zfnnjglvchgqsiip9553-72-61 10:00:19 Test Item Value Reference Range Interpretation Comments nitrite, urine, semiquantitative negative (test code = 5802-4) [facility] Hospitalleukocyte esterase, urine, by netyoemx9822-67-01 10:00:19 Test Item Value Reference Range Interpretation Comments leukocyte esterase, urine, by negative dipstick (test code = 5799-2) [facility] Hospitalappearance, lqird0517-74-77 10:00:19 Test Item Value Reference Range Interpretation Comments appearance, urine (test code = 5767-9) clear [facility] Healthurine bikfa4943-28-85 10:00:19 Test Item Value Reference Range Interpretation Comments urine color (test code = 5778-6) yellow [facility] Hospitalbeta HCG, urine, pemututkegwhbdli5783-19-40 10:00:19 Test Item Value Reference Range Interpretation Comments beta HCG, urine, semiquantitative negative (test code = 2106-3) [facility] Hospitalblood in urine (hemoglobin) by xvxwljpl2851-86-35 10:00:19 Test Item Value Reference Range Interpretation Comments blood in urine (hemoglobin) by negative dipstick (test code = 4998) [facility] Healthblood in urine (hemoglobin) by vicjamlq8669-25-04 10:00:19 Test Item Value Reference Range Interpretation Comments blood in urine (hemoglobin) by negative dipstick (test code = 4998) [facility] Hospitalthyroid stimulating hormone, fteyu2410-13-92 13:32:00 Test Item Value Reference Range Interpretation Comments thyroid stimulating hormone, 2.820 u[IU]/mL 0.450-4.500 serum (test code = 3016-3) [facility] Hospitalvitamin D 25-hydroxy, jkgqc9311-06-85 13:32:00 Test Item Value Reference Range Interpretation Comments vitamin D 25-hydroxy, serum (test 17.7 ng/mL 30.0-100.0 L code = 79579-0) [facility] Hospitalpid plasma reagin antibody, dvkot6158-98-64 13:32:00 Test Item Value Reference Range Interpretation Comments rapid plasma reagin antibody, Non Reactive Non Reactive serum (test code = 5291-0) [facility] Hospitalhemoglobin A1C, blood, as % of total thdfnbxihb4301-95-02 13:32:00 Test Item Value Reference Range Interpretation Comments hemoglobin A1C, blood, as % of total 5.3 % 4.8-5.6 hemoglobin (test code = 4548-4) [facility] HospitalLDL cholesterol, xugmk7117-77-74 13:32:00 Test Item Value Reference Range Interpretation Comments LDL cholesterol, serum (test code = 63 mg/dL 0-109 9-1) [facility] Hospitalvery low density lhqdzhpxbtxu7494-59-34 13:32:00 Test Item Value Reference Range Interpretation Comments very low density lipoproteins (test 19 mg/dL 5-40 code = 2091-7) [facility] HospitalHDL cholesterol, zsxdo4339-70-12 13:32:00 Test Item Value Reference Range Interpretation Comments HDL cholesterol, serum (test code = 44 mg/dL >39 5-9) [facility] Hospitaltriglyceride, serum, kgldokl5542-66-22 13:32:00 Test Item Value Reference Range Interpretation Comments triglyceride, serum, fasting (test 96 mg/dL 0-89 H code = 2571-8) [facility] Hospitalcholesterol, zkanv8829-20-93 13:32:00 Test Item Value Reference Range Interpretation Comments cholesterol, serum (test code = 126 mg/dL 140-515 0386-3) [facility] Hospitalalanine aminotransferase (SGPT), jwdcu9760-29-08 13:32:00 Test Item Value Reference Range Interpretation Comments alanine aminotransferase (SGPT), serum 21 1/L 0-24 (test code = 1742-6) [facility] Hospitalaspartate aminotransferase (SGOT), vskhj2246-30-45 13:32:00 Test Item Value Reference Range Interpretation Comments aspartate aminotransferase (SGOT), 23 1/L 0-40 serum (test code = 1920-8) [facility] Hospitalalkaline phosphatase, hoyvc1105-99-98 13:32:00 Test Item Value Reference Range Interpretation Comments alkaline phosphatase, serum (test code 61 1/L 49-108 = 1783-0) [facility] Hospitalbilirubin, serum, ajpgi9489-95-67 13:32:00 Test Item Value Reference Range Interpretation Comments bilirubin, serum, total (test code 0.6 mg/dL 0.0-1.2 = 1975-2) [facility] Hospitalalbumin/globulin ratio, briao4993-54-74 13:32:00 Test Item Value Reference Range Interpretation Comments albumin/globulin ratio, 1.6 (unknown unit) 1.2-2.2 serum (test code = 1759-0) [facility] Hospitalglobulin, djzzc8739-65-36 13:32:00 Test Item Value Reference Range Interpretation Comments globulin, serum (test code 2.7 (unknown unit) 1.5-4.5 = 2336-6) [facility] Hospitalalbumin, jkhux0707-45-79 13:32:00 Test Item Value Reference Range Interpretation Comments albumin, serum (test code = 1751-7) 4.4 g/dL 3.9-5.0 [facility] Healthprotein, total, vrpxx6769-23-42 13:32:00 Test Item Value Reference Range Interpretation Comments protein, total, serum (test code = 7.1 g/dL 6.0-8.5 2885-2) [facility] Healthcalcium, vlqgx4419-72-07 13:32:00 Test Item Value Reference Range Interpretation Comments calcium, serum (test code = 1999-8) 9.1 mg/dL 8.9-10.4 [facility] Hospitalcarbon dioxide, venous uxmte6707-34-41 13:32:00 Test Item Value Reference Range Interpretation Comments carbon dioxide, venous blood (test 22 mmol/L code = 2026-1) [facility] Healthchloride, nteyy5522-14-46 13:32:00 Test Item Value Reference Range Interpretation Comments chloride, serum (test code = 101 mmol/L 96-106 5-0) [facility] Healthpotassium, xrasc3768-62-09 13:32:00 Test Item Value Reference Range Interpretation Comments potassium, serum (test code = 4.2 mmol/L 3.5-5.2 2823-3) [facility] Healthsodium, zffsz6940-70-14 13:32:00 Test Item Value Reference Range Interpretation Comments sodium, serum (test code = 2951-2) 140 mmol/L 134-144 [facility] Hospitalurea nitrogen/creatinine ratio, ojunw8696-75-53 13:32:00 Test Item Value Reference Range Interpretation Comments urea nitrogen/creatinine 15 (unknown unit) 10-22 ratio, serum (test code = 3097-3) [facility] Healthcreatinine, sifmu3687-10-73 13:32:00 Test Item Value Reference Range Interpretation Comments creatinine, serum (test code = 0.62 mg/dL 0.57-1.00 2160-0) [facility] Hospitalurea nitrogen, enumk9060-93-24 13:32:00 Test Item Value Reference Range Interpretation Comments urea nitrogen, blood (test code = 9 mg/dL 5-18 3094-0) [facility] Hospitalblood glucose, ysfnda9240-46-56 13:32:00 Test Item Value Reference Range Interpretation Comments blood glucose, random (test code = 85 mg/dL 65-99 2339-0) [facility] Hospitalimmature granulocytes, percentage of total cells, blood 2020-02-18 13:32:00 Test Item Value Reference Range Interpretation Comments immature granulocytes, percentage of 0 % total cells, blood (test code = 42572-1) [facility] Healthbasophil count, ibcobqhi0223-02-86 13:32:00 Test Item Value Reference Range Interpretation Comments basophil count, absolute (test 0.0 x10E3/uL 0.0-0.3 code = 70361-3) [facility] HealthEosinophil Absolute Elabx1252-21-22 13:32:00 Test Item Value Reference Range Interpretation Comments Eosinophil Absolute Count (test 0.1 X10E3/UL 0.0-0.4 code = 49836-2) [facility] Hospitalmonocyte count, blood, moffhgajz6066-04-89 13:32:00 Test Item Value Reference Range Interpretation Comments monocyte count, blood, automated 0.5 X10E3/UL 0.1-0.9 (test code = 742-7) [facility]allymphocyte count, blood, razlzkxdh3591-58-00 13:32:00 Test Item Value Reference Range Interpretation Comments lymphocyte count, blood, 2.0 X10E3/UL 0.7-3.1 automated (test code = 731-0) [facility] HospitalAbsolute Midpaamhacm7571-54-50 13:32:00 Test Item Value Reference Range Interpretation Comments Absolute Neutrophils (test code 3.8 X10E3/UL 1.4-7.0 = 78733-9) [facility] Hospitalbasophils as percent of blood vnuhgnxogj0608-56-85 13:32:00 Test Item Value Reference Range Interpretation Comments basophils as percent of blood 0 % leukocytes (test code = 707-0) [facility] Healtheosinophils as percent of blood lxxnvbwokx9358-50-16 13:32:00 Test Item Value Reference Range Interpretation Comments eosinophils as percent of blood 2 % leukocytes (test code = 713-8) [facility] Healthmonocytes as percent of blood eshwryhtnq0391-28-08 13:32:00 Test Item Value Reference Range Interpretation Comments monocytes as percent of blood 8 % leukocytes (test code = 5905-5) [facility]allymphocytes as percent of blood yadqlbetvn1953-07-94 13:32:00 Test Item Value Reference Range Interpretation Comments lymphocytes as percent of blood 31 % leukocytes (test code = 736-9) [facility] Hospitalneutrophils as percent of blood uhaoodfjxe9956-18-19 13:32:00 Test Item Value Reference Range Interpretation Comments neutrophils as percent of blood 59 % leukocytes (test code = 770-8) [facility] Hospitalplatelet refnj4990-71-41 13:32:00 Test Item Value Reference Range Interpretation Comments platelet count (test code = 227 X10E3/UL 150-450 777-3) [facility] Hospitalred blood cell distribution kfswg1843-91-35 13:32:00 Test Item Value Reference Range Interpretation Comments red blood cell distribution width 13.6 % 11.7-15.4 (test code = 788-0) [facility] corpuscular hemoglobin concentration, [id number] 13:32:00 Test Item Value Reference Range Interpretation Comments mean corpuscular hemoglobin 32.5 G/DL 31.5-35.7 concentration, RBC (test code = 786-4) [facility] corpuscular hemoglobin, [id number] 13:32:00 Test Item Value Reference Range Interpretation Comments mean corpuscular hemoglobin, RBC 26.4 pg 26.6-33.0 L (test code = 785-6) [facility] corpuscular volume, KHS2900-25-27 13:32:00 Test Item Value Reference Range Interpretation Comments mean corpuscular volume, RBC (test code 81 fL 79-97 = 787-2) [facility] Hospitalhematocrit, qxkla8811-52-34 13:32:00 Test Item Value Reference Range Interpretation Comments hematocrit, blood (test code = 4544-3) 35.4 % 34.0-46.6 [facility] Hospitalhemoglobin, tlntx5389-43-30 13:32:00 Test Item Value Reference Range Interpretation Comments hemoglobin, blood (test code = 11.5 g/dL 11.1-15.9 718-7) [facility] Hospitalerythrocyte (RBC) fncqu3138-65-78 13:32:00 Test Item Value Reference Range Interpretation Comments erythrocyte (RBC) count (test 4.36 X10E6/UL 3.77-5.28 code = 789-8) [facility] Hospitalleukocyte count, jdkfi5522-77-45 13:32:00 Test Item Value Reference Range Interpretation Comments leukocyte count, blood (test 6.5 X10E3/UL 3.4-10.8 code = 6690-2) [facility] HospitalHIV-CMIA (Chemiluminescent Microparticle Immuno Assay) 2020-02-18 13:32:00 Test Item Value Reference Range Interpretation Comments HIV-CMIA (Chemiluminescent Non Reactive Non Reactive Microparticle Immuno Assay) (test code = 40199-7) [facility] Hospitalchlamydia DNA mwxrv1282-44-02 16:12:00 Test Item Value Reference Range Interpretation Comments chlamydia DNA probe (test code = Negative Negative 46908-6) [facility] HospitalNeisseria gonorrhoeae DNA apgqe9469-52-37 16:12:00 Test Item Value Reference Range Interpretation Comments Neisseria gonorrhoeae DNA probe Negative Negative (test code = 41644-0) [facility] HospitalNeisseria gonorrhoeae DNA ogyzh1547-36-28 16:12:00 Test Item Value Reference Range Interpretation Comments Neisseria gonorrhoeae DNA probe Negative Negative (test code = 67123-0) [facility] HCG, urine, xejmiacahgzxwlvk4916-80-07 13:25:51 Test Item Value Reference Range Interpretation Comments beta HCG, urine, semiquantitative negative (test code = 2106-3) [facility] streptococcus screen, ixntcb1439-64-83 14:14:00 Test Item Value Reference Range Interpretation Comments beta streptococcus screen, throat Positive A (test code = 38254-6) [facility] streptococcus screen, kvstpu0465-08-05 14:14:00 Test Item Value Reference Range Interpretation Comments beta streptococcus screen, throat Positive A (test code = 546-2) [facility] HospitalMicrobial identification kit, rapid strep method 2019-09-08 11:53:42 Test Item Value Reference Range Interpretation Comments Microbial identification kit, rapid negative strep method (test code = 58512-0) [facility] HospitalCHEM [id number] 23:18:00 Test Item Value Reference Range Interpretation Comments Lactic Acid Lvl (test code = Lactic 1.1 0.5-2.2 Acid Lvl) [facility]2019-12-03 23:18:00 Test Item Value Reference Range Interpretation Comments Lactic Acid Lvl (test code = Lactic 1.1 0.5-2.2 Acid Lvl) [facility]2019-12-03 23:18:00 Test Item Value Reference Range Interpretation Comments Lactic Acid Lvl (test code = Lactic 1.1 0.5-2.2 Acid Lvl) [facility]2019-12-03 23:18:00 Test Item Value Reference Range Interpretation Comments Lactic Acid Lvl (test code = Lactic 1.1 0.5-2.2 Acid Lvl) [facility]2019-12-03 21:01:00 Test Item Value Reference Range Interpretation Comments Glucose Lvl (test code = Glucose Lvl) 144 70-99 [facility]2019-12-03 21:01:00 Test Item Value Reference Range Interpretation Comments BUN (test code = BUN) 14 7-22 [facility]2019-12-03 21:01:00 Test Item Value Reference Range Interpretation Comments Creatinine Lvl (test code = Creatinine 0.89 0.50-1.40 Lvl) [facility]2019-12-03 21:01:00 Test Item Value Reference Range Interpretation Comments Sodium Lvl (test code = Sodium Lvl) 138 135-145 [facility]2019-12-03 21:01:00 Test Item Value Reference Range Interpretation Comments Potassium Lvl (test code = Potassium 3.4 3.5-5.1 Lvl) [facility]2019-12-03 21:01:00 Test Item Value Reference Range Interpretation Comments Chloride Lvl (test code = Chloride Lvl) 107 95-109 [facility]2019-12-03 21:01:00 Test Item Value Reference Range Interpretation Comments CO2 (test code = CO2) 23 24-32 [facility]2019-12-03 21:01:00 Test Item Value Reference Range Interpretation Comments Calcium Lvl (test code = Calcium Lvl) 8.6 8.5-10.5 [facility]2019-12-03 21:01:00 Test Item Value Reference Range Interpretation Comments Total Protein (test code = Total 7.7 6.4-8.4 Protein) [facility]2019-12-03 21:01:00 Test Item Value Reference Range Interpretation Comments Albumin Lvl (test code = Albumin Lvl) 3.4 3.5-5.0 [facility]2019-12-03 21:01:00 Test Item Value Reference Range Interpretation Comments ALT (test code = ALT) 22 See_Comment [Auto mated message] The system which ge nerated this result transmit claudia reference range : <=65. The reference range was not used to interpr et this result as charlie l/abnormal. [facility]2019-12-03 21:01:00 Test Item Value Reference Range Interpretation Comments AST (test code = AST) 21 See_Comment [Auto mated message] The system which ge nerated this result transmit claudia reference range : <=37. The reference range was not used to interpr et this result as charlie l/abnormal. [place] 048699-12-03 21:01:00 Test Item Value Reference Range Interpretation Comments Alk Phos (test code = Alk Phos) 68 49-116 [facility]2019-12-03 21:01:00 Test Item Value Reference Range Interpretation Comments Bili Total (test code = Bili Total) 0.7 0.2-1.3 [facility]2019-12-03 21:01:00 Test Item Value Reference Range Interpretation Comments eGFR (test code = eGFR) See Comment [facility]2019-12-03 21:01:00 Test Item Value Reference Range Interpretation Comments AGAP (test code = AGAP) 11.4 10.0-20.0 [facility]2019-12-03 21:01:00 Test Item Value Reference Range Interpretation Comments B/C Ratio (test code = B/C Ratio) 16 1 6-25 [place] 048699-12-03 21:01:00 Test Item Value Reference Range Interpretation Comments Globulin (test code = Globulin) 4.3 2.7-4.2 [place] 048699-12-03 21:01:00 Test Item Value Reference Range Interpretation Comments A/G Ratio (test code = A/G Ratio) 0.8 1 0.7-1.6 [place] 048699-12-03 21:01:00 Test Item Value Reference Range Interpretation Comments Lactic Acid Lvl (test code = Lactic 2.7 0.5-2.2 Acid Lvl) [facility] StationKszdpgdTEWFDCLNJI7129-75-72 21:01:00 Test Item Value Reference Range Interpretation Comments WBC (test code = WBC) 8.0 3.7-10.4 [facility] StationLirfxzdSMJAXNFCUY9042-03-42 21:01:00 Test Item Value Reference Range Interpretation Comments RBC (test code = RBC) 4.71 4.20-5.40 [facility] StationKulamnvGGAVXKJSAU1657-95-83 21:01:00 Test Item Value Reference Range Interpretation Comments Hgb (test code = Hgb) 12.6 12.0-16.0 [facility] StationLdqmskaFJPKJTSGNI7809-20-96 21:01:00 Test Item Value Reference Range Interpretation Comments Hct (test code = Hct) 37.6 36.0-48.0 [facility] StationPvsvsigWWUJJQCAGW5676-83-14 21:01:00 Test Item Value Reference Range Interpretation Comments MCV (test code = MCV) 79.9 80.0-98.0 [facility] StationLvscosmVZTAIQKGCT3741-79-47 21:01:00 Test Item Value Reference Range Interpretation Comments MCH (test code = MCH) 26.8 pg 27.0-31.0 [facility] StationLkktjkiABNLPGESGE2437-37-61 21:01:00 Test Item Value Reference Range Interpretation Comments MCHC (test code = MCHC) 33.5 32.0-36.0 [facility] StationEgxiuyyTHZCYPZZXW7010-37-90 21:01:00 Test Item Value Reference Range Interpretation Comments RDW (test code = RDW) 13.7 11.5-14.5 [facility] StationMbxfstwWRVNJYCMTQ9010-68-45 21:01:00 Test Item Value Reference Range Interpretation Comments Platelet (test code = Platelet) 171 133-450 [facility] StationQiqbrgjOWOFXIRNRF3031-96-94 21:01:00 Test Item Value Reference Range Interpretation Comments MPV (test code = MPV) 8.5 7.4-10.4 [facility] StationLpykpdlIUYOYKKHHW4171-42-23 21:01:00 Test Item Value Reference Range Interpretation Comments Segs (test code = Segs) 89.6 34.0-64.0 [facility] StationAvwmuifCVPPAQXEYN9220-96-42 21:01:00 Test Item Value Reference Range Interpretation Comments Lymphocytes (test code = Lymphocytes) 4.7 20.0-40.0 [facility] StationSjdxdaeYGGJGYRNOY4717-40-70 21:01:00 Test Item Value Reference Range Interpretation Comments Monocytes (test code = Monocytes) 5.4 2.0-12.0 [facility] StationQcuokvwUGLSJWGYRO1786-22-10 21:01:00 Test Item Value Reference Range Interpretation Comments Eosinophils (test code = 0.1 See_Comment [A utomated message] The Eosinophils) system which ge nerated this result tra nsmitted reference range : <=4.0. The reference r deandra was not used to int erpret this result as normal/abnormal . [facility] StationTeutanwTEFKXHVQAM8760-68-81 21:01:00 Test Item Value Reference Range Interpretation Comments Basophils (test code = 0.2 See_Comment [Aut omated message] The Basophils) system which ge nerated this result tra nsmitted reference range : <=1.0. The reference r deandra was not used to int erpret this result as normal/abnormal . [facility] StationKvxgxmlBSUXOKTMQH9217-19-26 21:01:00 Test Item Value Reference Range Interpretation Comments Neutrophils # (test code = Neutrophils 7.2 1.5-8.1 #) [facility] StationScuyhgwMOVMDXBPEL9702-61-70 21:01:00 Test Item Value Reference Range Interpretation Comments Lymphocytes # (test code = Lymphocytes 0.4 1.0-5.5 #) [facility] StationEithkahLWIFMUDILX9066-57-16 21:01:00 Test Item Value Reference Range Interpretation Comments Monocytes # (test code 0.4 See_Comment [Aut omated message] The = Monocytes #) system which generated this result tra nsmitted reference range : <=0.8. The reference r deandra was not used to int erpret this result as normal/abnormal . [facility]2019-12-03 21:01:00 Test Item Value Reference Range Interpretation Comments Glucose Lvl (test code = Glucose Lvl) 144 70-99 [facility]2019-12-03 21:01:00 Test Item Value Reference Range Interpretation Comments BUN (test code = BUN) 14 7-22 [facility]2019-12-03 21:01:00 Test Item Value Reference Range Interpretation Comments Creatinine Lvl (test code = Creatinine 0.89 0.50-1.40 Lvl) [facility]2019-12-03 21:01:00 Test Item Value Reference Range Interpretation Comments Sodium Lvl (test code = Sodium Lvl) 138 135-145 [facility]2019-12-03 21:01:00 Test Item Value Reference Range Interpretation Comments Potassium Lvl (test code = Potassium 3.4 3.5-5.1 Lvl) [facility]2019-12-03 21:01:00 Test Item Value Reference Range Interpretation Comments Chloride Lvl (test code = Chloride Lvl) 107 95-109 [facility]2019-12-03 21:01:00 Test Item Value Reference Range Interpretation Comments Glucose Lvl (test code = Glucose Lvl) 144 70-99 [facility]2019-12-03 21:01:00 Test Item Value Reference Range Interpretation Comments BUN (test code = BUN) 14 02-08 [facility]2019-12-03 21:01:00 Test Item Value Reference Range Interpretation Comments Creatinine Lvl (test code = Creatinine 0.89 0.50-1.40 Lvl) [facility]2019-12-03 21:01:00 Test Item Value Reference Range Interpretation Comments Sodium Lvl (test code = Sodium Lvl) 138 135-145 [facility]2019-12-03 21:01:00 Test Item Value Reference Range Interpretation Comments Potassium Lvl (test code = Potassium 3.4 3.5-5.1 Lvl) [facility]2019-12-03 21:01:00 Test Item Value Reference Range Interpretation Comments Chloride Lvl (test code = Chloride Lvl) 107 95-109 [facility]2019-12-03 21:01:00 Test Item Value Reference Range Interpretation Comments CO2 (test code = CO2) [facility]2019-12-03 21:01:00 Test Item Value Reference Range Interpretation Comments Calcium Lvl (test code = Calcium Lvl) 8.6 8.5-10.5 [facility]2019-12-03 21:01:00 Test Item Value Reference Range Interpretation Comments CO2 (test code = CO2) [facility]2019-12-03 21:01:00 Test Item Value Reference Range Interpretation Comments Total Protein (test code = Total 7.7 6.4-8.4 Protein) [facility]2019-12-03 21:01:00 Test Item Value Reference Range Interpretation Comments Albumin Lvl (test code = Albumin Lvl) 3.4 3.5-5.0 [facility]2019-12-03 21:01:00 Test Item Value Reference Range Interpretation Comments ALT (test code = ALT) 22 See_Comment [Auto mated message] The system which ge nerated this result transmit claudia reference range : <=65. The reference range was not used to interpr et this result as charlie l/abnormal. [facility]2019-12-03 21:01:00 Test Item Value Reference Range Interpretation Comments AST (test code = AST) 21 See_Comment [Auto mated message] The system which ge nerated this result transmit claudia reference range : <=37. The reference range was not used to interpr et this result as charlie l/abnormal. [facility]2019-12-03 21:01:00 Test Item Value Reference Range Interpretation Comments Alk Phos (test code = Alk Phos) 68 49-116 [facility]2019-12-03 21:01:00 Test Item Value Reference Range Interpretation Comments Bili Total (test code = Bili Total) 0.7 0.2-1.3 [facility]2019-12-03 21:01:00 Test Item Value Reference Range Interpretation Comments eGFR (test code = eGFR) See Comment [facility]2019-12-03 21:01:00 Test Item Value Reference Range Interpretation Comments AGAP (test code = AGAP) 11.4 10.0-20.0 [facility]2019-12-03 21:01:00 Test Item Value Reference Range Interpretation Comments B/C Ratio (test code = B/C Ratio) 16 1 6-25 [facility]2019-12-03 21:01:00 Test Item Value Reference Range Interpretation Comments Globulin (test code = Globulin) 4.3 2.7-4.2 [facility]2019-12-03 21:01:00 Test Item Value Reference Range Interpretation Comments Calcium Lvl (test code = Calcium Lvl) 8.6 8.5-10.5 [facility] [id number] 21:01:00 Test Item Value Reference Range Interpretation Comments A/G Ratio (test code = A/G Ratio) 0.8 1 0.7-1.6 [facility]2019-12-03 21:01:00 Test Item Value Reference Range Interpretation Comments Lactic Acid Lvl (test code = Lactic 2.7 0.5-2.2 Acid Lvl) [facility] StationSaaxylzMLYIGYCEUO3795-99-00 21:01:00 Test Item Value Reference Range Interpretation Comments WBC (test code = WBC) 8.0 3.7-10.4 [facility] StationVxvuwvqSWPHNTJKIK1391-38-47 21:01:00 Test Item Value Reference Range Interpretation Comments RBC (test code = RBC) 4.71 4.20-5.40 [facility] StationAygqzxpQTJYDLCQMB6105-78-93 21:01:00 Test Item Value Reference Range Interpretation Comments Hgb (test code = Hgb) 12.6 12.0-16.0 [facility] StationGcvtpdaZGLEPZFQCH8678-57-61 21:01:00 Test Item Value Reference Range Interpretation Comments Hct (test code = Hct) 37.6 36.0-48.0 [facility] StationTiisfncTYGEILIHXX8997-24-76 21:01:00 Test Item Value Reference Range Interpretation Comments MCV (test code = MCV) 79.9 80.0-98.0 [facility] StationIoxitcdTQPJRALZIH3321-67-95 21:01:00 Test Item Value Reference Range Interpretation Comments MCH (test code = MCH) 26.8 pg 27.0-31.0 [facility] StationGkanenqGIFMOBGRXN9320-13-38 21:01:00 Test Item Value Reference Range Interpretation Comments MCHC (test code = MCHC) 33.5 32.0-36.0 [facility] StationWhnszshEXGFUKAFKX1353-00-92 21:01:00 Test Item Value Reference Range Interpretation Comments RDW (test code = RDW) 13.7 11.5-14.5 [facility]2019-12-03 21:01:00 Test Item Value Reference Range Interpretation Comments Total Protein (test code = Total 7.7 6.4-8.4 Protein) [facility] StationQcejvggCMDXYXFXNW8067-84-61 21:01:00 Test Item Value Reference Range Interpretation Comments Platelet (test code = Platelet) 171 133-450 [facility] StationZucfaaxDUBSQMSUQD0304-65-25 21:01:00 Test Item Value Reference Range Interpretation Comments MPV (test code = MPV) 8.5 7.4-10.4 [facility] StationLucnijhWVLFBFHKJS0916-18-24 21:01:00 Test Item Value Reference Range Interpretation Comments Segs (test code = Segs) 89.6 34.0-64.0 [facility] StationHylpzsuPSKOVTQFPF3099-94-68 21:01:00 Test Item Value Reference Range Interpretation Comments Lymphocytes (test code = Lymphocytes) 4.7 20.0-40.0 [facility] StationNcafkqtBHWTHQNSAD6813-67-28 21:01:00 Test Item Value Reference Range Interpretation Comments Monocytes (test code = Monocytes) 5.4 2.0-12.0 [facility] StationMyurrfkLJSOUJGBSI2331-86-34 21:01:00 Test Item Value Reference Range Interpretation Comments Eosinophils (test code = 0.1 See_Comment [A utomated message] The Eosinophils) system which ge nerated this result tra nsmitted reference range : <=4.0. The reference r deandra was not used to int erpret this result as normal/abnormal . [facility] StationSrjmdfoGKOZSLHDKN0721-23-91 21:01:00 Test Item Value Reference Range Interpretation Comments Basophils (test code = 0.2 See_Comment [Aut omated message] The Basophils) system which ge nerated this result tra nsmitted reference range : <=1.0. The reference r deandra was not used to int erpret this result as normal/abnormal . [facility] StationYtqqogeWGQIGPLEGO0916-37-66 21:01:00 Test Item Value Reference Range Interpretation Comments Neutrophils # (test code = Neutrophils 7.2 1.5-8.1 #) [facility] StationFxprwpzTUMAHZPVZW3472-66-57 21:01:00 Test Item Value Reference Range Interpretation Comments Lymphocytes # (test code = Lymphocytes 0.4 1.0-5.5 #) [facility] StationJnlnmlrXKUODCOTDO3271-22-81 21:01:00 Test Item Value Reference Range Interpretation Comments Monocytes # (test code 0.4 See_Comment [Aut omated message] The = Monocytes #) system which generated this result tra nsmitted reference range : <=0.8. The reference r deandra was not used to int erpret this result as normal/abnormal . [facility]2019-12-03 21:01:00 Test Item Value Reference Range Interpretation Comments Albumin Lvl (test code = Albumin Lvl) 3.4 3.5-5.0 [facility] [id number] 21:01:00 Test Item Value Reference Range Interpretation Comments ALT (test code = ALT) 22 See_Comment [Auto mated message] The system which ge nerated this result transmit claudia reference range : <=65. The reference range was not used to interpr et this result as charlie l/abnormal. [facility] [id number] 21:01:00 Test Item Value Reference Range Interpretation Comments AST (test code = AST) 21 See_Comment [Auto mated message] The system which ge nerated this result transmit claudia reference range : <=37. The reference range was not used to interpr et this result as charlie l/abnormal. [facility] [id number] 21:01:00 Test Item Value Reference Range Interpretation Comments Alk Phos (test code = Alk Phos) 68 49-116 [facility] [id number] 21:01:00 Test Item Value Reference Range Interpretation Comments Bili Total (test code = Bili Total) 0.7 0.2-1.3 [facility] [id number] 21:01:00 Test Item Value Reference Range Interpretation Comments eGFR (test code = eGFR) See Comment [facility] [id number] 21:01:00 Test Item Value Reference Range Interpretation Comments AGAP (test code = AGAP) 11.4 10.0-20.0 [facility] [id number] 21:01:00 Test Item Value Reference Range Interpretation Comments B/C Ratio (test code = B/C Ratio) 16 1 6-25 [facility] [id number] 21:01:00 Test Item Value Reference Range Interpretation Comments Globulin (test code = Globulin) 4.3 2.7-4.2 [facility] [id number] 21:01:00 Test Item Value Reference Range Interpretation Comments Glucose Lvl (test code = Glucose Lvl) 144 70-99 [facility] [id number] 21:01:00 Test Item Value Reference Range Interpretation Comments BUN (test code = BUN) 14 7-22 [facility] [id number] 21:01:00 Test Item Value Reference Range Interpretation Comments A/G Ratio (test code = A/G Ratio) 0.8 1 0.7-1.6 [facility]2019-12-03 21:01:00 Test Item Value Reference Range Interpretation Comments Creatinine Lvl (test code = Creatinine 0.89 0.50-1.40 Lvl) [facility]2019-12-03 21:01:00 Test Item Value Reference Range Interpretation Comments Sodium Lvl (test code = Sodium Lvl) 138 135-145 [facility]2019-12-03 21:01:00 Test Item Value Reference Range Interpretation Comments Potassium Lvl (test code = Potassium 3.4 3.5-5.1 Lvl) [facility]2019-12-03 21:01:00 Test Item Value Reference Range Interpretation Comments Chloride Lvl (test code = Chloride Lvl) 107 95-109 [facility]2019-12-03 21:01:00 Test Item Value Reference Range Interpretation Comments CO2 (test code = CO2) 23 24-32 [facility]2019-12-03 21:01:00 Test Item Value Reference Range Interpretation Comments Calcium Lvl (test code = Calcium Lvl) 8.6 8.5-10.5 [facility]2019-12-03 21:01:00 Test Item Value Reference Range Interpretation Comments Total Protein (test code = Total 7.7 6.4-8.4 Protein) [facility]2019-12-03 21:01:00 Test Item Value Reference Range Interpretation Comments Albumin Lvl (test code = Albumin Lvl) 3.4 3.5-5.0 [facility]2019-12-03 21:01:00 Test Item Value Reference Range Interpretation Comments ALT (test code = ALT) 22 <=65 [facility]2019-12-03 21:01:00 Test Item Value Reference Range Interpretation Comments AST (test code = AST) 21 <=37 [facility]2019-12-03 21:01:00 Test Item Value Reference Range Interpretation Comments Lactic Acid Lvl (test code = Lactic 2.7 0.5-2.2 Acid Lvl) [facility]2019-12-03 21:01:00 Test Item Value Reference Range Interpretation Comments Alk Phos (test code = Alk Phos) 68 49-116 [facility]2019-12-03 21:01:00 Test Item Value Reference Range Interpretation Comments Bili Total (test code = Bili Total) 0.7 0.2-1.3 [facility]2019-12-03 21:01:00 Test Item Value Reference Range Interpretation Comments eGFR (test code = eGFR) See Comment [facility]2019-12-03 21:01:00 Test Item Value Reference Range Interpretation Comments AGAP (test code = AGAP) 11.4 10.0-20.0 [facility]2019-12-03 21:01:00 Test Item Value Reference Range Interpretation Comments B/C Ratio (test code = B/C Ratio) 16 1 6-25 [facility]2019-12-03 21:01:00 Test Item Value Reference Range Interpretation Comments Globulin (test code = Globulin) 4.3 2.7-4.2 [facility]2019-12-03 21:01:00 Test Item Value Reference Range Interpretation Comments A/G Ratio (test code = A/G Ratio) 0.8 1 0.7-1.6 [facility]2019-12-03 21:01:00 Test Item Value Reference Range Interpretation Comments Lactic Acid Lvl (test code = Lactic 2.7 0.5-2.2 Acid Lvl) [facility] [id number] 21:01:00 Test Item Value Reference Range Interpretation Comments WBC (test code = WBC) 8.0 3.7-10.4 [facility] StationBosxuapOPFCGMGWUI9180-28-76 21:01:00 Test Item Value Reference Range Interpretation Comments RBC (test code = RBC) 4.71 4.20-5.40 [facility] StationHuzccpdGLALVBGUKD0087-35-20 21:01:00 Test Item Value Reference Range Interpretation Comments WBC (test code = WBC) 8.0 3.7-10.4 [facility] StationEwuyxraMXIAFZYMGN2937-10-79 21:01:00 Test Item Value Reference Range Interpretation Comments Hgb (test code = Hgb) 12.6 12.0-16.0 [place] 082159-12-03 21:01:00 Test Item Value Reference Range Interpretation Comments Hct (test code = Hct) 37.6 36.0-48.0 [facility] StationTobwdnhUMSHALFLPM1425-32-92 21:01:00 Test Item Value Reference Range Interpretation Comments MCV (test code = MCV) 79.9 80.0-98.0 [facility] StationSleomedJFWYQWRBBJ0161-93-65 21:01:00 Test Item Value Reference Range Interpretation Comments MCH (test code = MCH) 26.8 pg 27.0-31.0 [facility] StationLfgdutrHNIEELNPNJ6732-72-63 21:01:00 Test Item Value Reference Range Interpretation Comments MCHC (test code = MCHC) 33.5 32.0-36.0 [facility] StationVnvlydaQFWHNTAHCB6889-58-59 21:01:00 Test Item Value Reference Range Interpretation Comments RDW (test code = RDW) 13.7 11.5-14.5 [facility] StationDncxhfxJYKRYCYBJQ3597-80-10 21:01:00 Test Item Value Reference Range Interpretation Comments Platelet (test code = Platelet) 171 133-450 [facility] StationXajdimxGEEMHDKQFO9668-67-77 21:01:00 Test Item Value Reference Range Interpretation Comments MPV (test code = MPV) 8.5 7.4-10.4 [facility] StationPryoigaJRSHPFOSVR4725-37-54 21:01:00 Test Item Value Reference Range Interpretation Comments Segs (test code = Segs) 89.6 34.0-64.0 [facility] StationYixyqvtXVXVXKNHKN2409-22-20 21:01:00 Test Item Value Reference Range Interpretation Comments Lymphocytes (test code = Lymphocytes) 4.7 20.0-40.0 [facility] StationEbhhkpqZKJSLFVECM1446-44-03 21:01:00 Test Item Value Reference Range Interpretation Comments RBC (test code = RBC) 4.71 4.20-5.40 [facility] StationUwlexeuSIKCPBTWYX1098-43-11 21:01:00 Test Item Value Reference Range Interpretation Comments Monocytes (test code = Monocytes) 5.4 2.0-12.0 [facility] StationXxgfdliBAFRRRHDLT3365-89-03 21:01:00 Test Item Value Reference Range Interpretation Comments Eosinophils (test code = Eosinophils) 0.1 <=4.0 [facility] StationXexlnbvPVSITWMGTT6852-21-91 21:01:00 Test Item Value Reference Range Interpretation Comments Basophils (test code = Basophils) 0.2 <=1.0 [facility] StationFgdvwmdKAREBCINWL8857-87-60 21:01:00 Test Item Value Reference Range Interpretation Comments Neutrophils # (test code = Neutrophils 7.2 1.5-8.1 #) [facility] StationRvsujigHOSWFMVEOH3631-96-75 21:01:00 Test Item Value Reference Range Interpretation Comments Lymphocytes # (test code = Lymphocytes 0.4 1.0-5.5 #) [facility] StationRwuyntpIYNJRFVTBW3532-81-19 21:01:00 Test Item Value Reference Range Interpretation Comments Monocytes # (test code = Monocytes #) 0.4 <=0.8 [facility] StationXysovjxNNNJHDQMXS5692-87-08 21:01:00 Test Item Value Reference Range Interpretation Comments Hgb (test code = Hgb) 12.6 12.0-16.0 [facility] [facility] [id number] 21:01:00 Test Item Value Reference Range Interpretation Comments Hct (test code = Hct) 37.6 36.0-48.0 [facility] StationWsqwpbqTGAUSJWLUX4603-86-08 21:01:00 Test Item Value Reference Range Interpretation Comments MCV (test code = MCV) 79.9 80.0-98.0 [facility] StationIgurqjaNKSGWWXKGE6628-13-03 21:01:00 Test Item Value Reference Range Interpretation Comments MCH (test code = MCH) 26.8 pg 27.0-31.0 [facility] StationSqibypeEVSCEUIBPZ0582-52-47 21:01:00 Test Item Value Reference Range Interpretation Comments MCHC (test code = MCHC) 33.5 32.0-36.0 [facility] Stati[id number] 21:01:00 Test Item Value Reference Range Interpretation Comments RDW (test code = RDW) 13.7 11.5-14.5 [facility] StationTlmfbgpBWVJGEPCMO2302-51-73 21:01:00 Test Item Value Reference Range Interpretation Comments Platelet (test code = Platelet) 171 133-450 [facility] StationXhtvmvsCGLACSSBTU5894-12-26 21:01:00 Test Item Value Reference Range Interpretation Comments MPV (test code = MPV) 8.5 7.4-10.4 [facility] StationTomtgpsODJQYPJWBT4601-85-42 21:01:00 Test Item Value Reference Range Interpretation Comments Segs (test code = Segs) 89.6 34.0-64.0 [facility] StationJpvvmhjRAVCXUSKNR5467-01-12 21:01:00 Test Item Value Reference Range Interpretation Comments Lymphocytes (test code = Lymphocytes) 4.7 20.0-40.0 [facility] StationBxfjoceJEJIFDTXCG5696-67-05 21:01:00 Test Item Value Reference Range Interpretation Comments Monocytes (test code = Monocytes) 5.4 2.0-12.0 [facility] StationQwnffneMOPFJHQBUB2371-80-49 21:01:00 Test Item Value Reference Range Interpretation Comments Eosinophils (test code = 0.1 See_Comment [A utomated message] The Eosinophils) system which ge nerated this result tra nsmitted reference range : <=4.0. The reference r deandra was not used to int erpret this result as normal/abnormal . [facility] StationYeszcnmRTCIVSPQWM6573-55-92 21:01:00 Test Item Value Reference Range Interpretation Comments Basophils (test code = 0.2 See_Comment [Aut omated message] The Basophils) system which ge nerated this result tra nsmitted reference range : <=1.0. The reference r deandra was not used to int erpret this result as normal/abnormal . [facility] StationZldwwilDQVYRQLLQW5547-04-69 21:01:00 Test Item Value Reference Range Interpretation Comments Neutrophils # (test code = Neutrophils 7.2 1.5-8.1 #) [facility] StationXczzjzxKMMEDXJFTY7351-08-75 21:01:00 Test Item Value Reference Range Interpretation Comments Lymphocytes # (test code = Lymphocytes 0.4 1.0-5.5 #) [facility] StationNhpezlpDMNPXYVFSX9211-44-32 21:01:00 Test Item Value Reference Range Interpretation Comments Monocytes # (test code 0.4 See_Comment [Aut omated message] The = Monocytes #) system which generated this result tra nsmitted reference range : <=0.8. The reference r deandra was not used to int erpret this result as normal/abnormal . [facility] AND [id number] 19:41:00 Test Item Value Reference Range Interpretation Comments UA Color (test code = Yellow *NA*(06/22/19 UA Color) 1:41 PM) [facility] AND [id number] 19:41:00 Test Item Value Reference Range Interpretation Comments UA Turbidity (test code Marked *ABN*(06/22/19 = UA Turbidity) 1:41 PM) [facility] AND [id number] 19:41:00 Test Item Value Reference Range Interpretation Comments UA Spec Grav (test code = UA Spec 1.029 1 Grav) [facility] AND [id number] 19:41:00 Test Item Value Reference Range Interpretation Comments UA pH (test code = UA pH) 5.0 1 5.0-8.0 [facility] AND [id number] 19:41:00 Test Item Value Reference Range Interpretation Comments UA Protein (test code = UA Protein) 100 mg/dL [facility] AND [id number] 19:41:00 Test Item Value Reference Range Interpretation Comments UA Glucose (test code = UA Negative mg/dL Glucose) [facility] AND [id number] 19:41:00 Test Item Value Reference Range Interpretation Comments UA Ketones (test code = UA Negative mg/dL Ketones) [facility] AND [id number] 19:41:00 Test Item Value Reference Range Interpretation Comments UA Bili (test code = Negative *NA*(06/22/19 UA Bili) 1:41 PM) [facility] AND [id number] 19:41:00 Test Item Value Reference Range Interpretation Comments UA Blood (test code = Negative (06/22/19 1:41 UA Blood) PM) [facility] AND [id number] 19:41:00 Test Item Value Reference Range Interpretation Comments UA Urobilinogen (test code = UA 4.0 0.1-1.0 Urobilinogen) [facility] AND [id number] 19:41:00 Test Item Value Reference Range Interpretation Comments UA Nitrite (test code Negative (06/22/19 1:41 = UA Nitrite) PM) [facility] AND [id number] 19:41:00 Test Item Value Reference Range Interpretation Comments UA Leuk Est (test code Small *ABN*(06/22/19 = UA Leuk Est) 1:41 PM) [facility] AND [id number] 19:41:00 Test Item Value Reference Range Interpretation Comments UA Sq Epi (test code = UA Sq Moderate /LPF Epi) [facility] AND [id number] 19:41:00 Test Item Value Reference Range Interpretation Comments UA WBC (test code = 8 See_Comment [Automa claudia message] The UA WBC) system which ge nerated this result transmit claudia reference range : <=5. The reference range was not used to interpr et this result as charlie l/abnormal. [facility] [id number] 19:41:00 Test Item Value Reference Range Interpretation Comments UA RBC (test code = 4 See_Comment [Automa claudia message] The UA RBC) system which ge nerated this result transmit claudia reference range : <=2. The reference range was not used to interpr et this result as charlie l/abnormal. [facility] [id number] 19:41:00 Test Item Value Reference Range Interpretation Comments UA Bacteria (test code = UA Occasional /HPF Bacteria) [facility] [id number] 19:41:00 Test Item Value Reference Range Interpretation Comments UA Mucus (test code = UA Mucus) Few /LPF [facility] [id number] 19:41:00 Test Item Value Reference Range Interpretation Comments U Preg (test code = U Negative (06/22/19 1:41 Preg) PM) [facility] AND [id number] 19:41:00 Test Item Value Reference Range Interpretation Comments UA Color (test code = Yellow *NA*(06/22/19 UA Color) 1:41 PM) [facility] AND [id number] 19:41:00 Test Item Value Reference Range Interpretation Comments UA Turbidity (test code Marked *ABN*(06/22/19 = UA Turbidity) 1:41 PM) [facility] AND [id number] 19:41:00 Test Item Value Reference Range Interpretation Comments UA Spec Grav (test code = UA Spec 1.029 1 Grav) [facility] AND [id number] 19:41:00 Test Item Value Reference Range Interpretation Comments UA pH (test code = UA pH) 5.0 1 5.0-8.0 [facility] [id number] 19:41:00 Test Item Value Reference Range Interpretation Comments UA Protein (test code = UA Protein) 100 mg/dL [facility] [id number] 19:41:00 Test Item Value Reference Range Interpretation Comments UA Glucose (test code = UA Negative mg/dL Glucose) [facility] [id number] 19:41:00 Test Item Value Reference Range Interpretation Comments UA Ketones (test code = UA Negative mg/dL Ketones) [facility] AND [id number] 19:41:00 Test Item Value Reference Range Interpretation Comments UA Bili (test code = Negative *NA*(06/22/19 UA Bili) 1:41 PM) [facility] AND [id number] 19:41:00 Test Item Value Reference Range Interpretation Comments UA Blood (test code = Negative (06/22/19 1:41 UA Blood) PM) [facility] AND [id number] 19:41:00 Test Item Value Reference Range Interpretation Comments UA Urobilinogen (test code = UA 4.0 0.1-1.0 Urobilinogen) [facility] AND [id number] 19:41:00 Test Item Value Reference Range Interpretation Comments UA Nitrite (test code Negative (06/22/19 1:41 = UA Nitrite) PM) [facility] AND [id number] 19:41:00 Test Item Value Reference Range Interpretation Comments UA Leuk Est (test code Small *ABN*(06/22/19 = UA Leuk Est) 1:41 PM) [facility] AND [id number] 19:41:00 Test Item Value Reference Range Interpretation Comments UA Sq Epi (test code = UA Sq Moderate /LPF Epi) [facility] AND [id number] 19:41:00 Test Item Value Reference Range Interpretation Comments UA WBC (test code = 8 See_Comment [Automa claudia message] The UA WBC) system which ge nerated this result transmit claudia reference range : <=5. The reference range was not used to interpr et this result as charlie l/abnormal. [facility] AND [id number] 19:41:00 Test Item Value Reference Range Interpretation Comments UA RBC (test code = 4 See_Comment [Automa claudia message] The UA RBC) system which ge nerated this result transmit claudia reference range : <=2. The reference range was not used to interpr et this result as charlie l/abnormal. [facility] AND [id number] 19:41:00 Test Item Value Reference Range Interpretation Comments UA Bacteria (test code = UA Occasional /HPF Bacteria) [facility] AND [id number] 19:41:00 Test Item Value Reference Range Interpretation Comments UA Mucus (test code = UA Mucus) Few /LPF [facility] [id number] 19:41:00 Test Item Value Reference Range Interpretation Comments U Preg (test code = U Negative (06/22/19 1:41 Preg) PM) [facility] AND [id number] 19:41:00 Test Item Value Reference Range Interpretation Comments UA Color (test code = Yellow *NA*(06/22/19 UA Color) 1:41 PM) [facility] AND [id number] 19:41:00 Test Item Value Reference Range Interpretation Comments UA Turbidity (test code Marked *ABN*(06/22/19 = UA Turbidity) 1:41 PM) [facility] AND [id number] 19:41:00 Test Item Value Reference Range Interpretation Comments UA Spec Grav (test code = UA Spec 1.029 1 Grav) [facility] AND [id number] 19:41:00 Test Item Value Reference Range Interpretation Comments UA pH (test code = UA pH) 5.0 1 5.0-8.0 [facility] AND [id number] 19:41:00 Test Item Value Reference Range Interpretation Comments UA Protein (test code = UA Protein) 100 mg/dL [facility] AND [id number] 19:41:00 Test Item Value Reference Range Interpretation Comments UA Glucose (test code = UA Negative mg/dL Glucose) [facility] AND [id number] 19:41:00 Test Item Value Reference Range Interpretation Comments UA Ketones (test code = UA Negative mg/dL Ketones) [facility] AND [id number] 19:41:00 Test Item Value Reference Range Interpretation Comments UA Bili (test code = Negative *NA*(06/22/19 UA Bili) 1:41 PM) [facility] AND [id number] 19:41:00 Test Item Value Reference Range Interpretation Comments UA Blood (test code = Negative (06/22/19 1:41 UA Blood) PM) [facility] AND [id number] 19:41:00 Test Item Value Reference Range Interpretation Comments UA Urobilinogen (test code = UA 4.0 0.1-1.0 Urobilinogen) [facility] AND [id number] 19:41:00 Test Item Value Reference Range Interpretation Comments UA Nitrite (test code Negative (06/22/19 1:41 = UA Nitrite) PM) [facility] [id number] 19:41:00 Test Item Value Reference Range Interpretation Comments UA Leuk Est (test code Small *ABN*(06/22/19 = UA Leuk Est) 1:41 PM) [facility] [id number] 19:41:00 Test Item Value Reference Range Interpretation Comments UA Sq Epi (test code = UA Sq Moderate /LPF Epi) [facility] [id number] 19:41:00 Test Item Value Reference Range Interpretation Comments UA WBC (test code = UA WBC) 8 <=5 [facility] [id number] 19:41:00 Test Item Value Reference Range Interpretation Comments UA RBC (test code = UA RBC) 4 <=2 [facility] [id number] 19:41:00 Test Item Value Reference Range Interpretation Comments UA Bacteria (test code = UA Occasional /HPF Bacteria) [facility] [id number] 19:41:00 Test Item Value Reference Range Interpretation Comments UA Mucus (test code = UA Mucus) Few /LPF [facility] [id number] 19:41:00 Test Item Value Reference Range Interpretation Comments U Preg (test code = U Negative (06/22/19 1:41 Preg) PM) [facility] [id number] 19:41:00 Test Item Value Reference Range Interpretation Comments UA Color (test code = Yellow *NA*(06/22/19 UA Color) 1:41 PM) [facility] [id number] 19:41:00 Test Item Value Reference Range Interpretation Comments UA Turbidity (test code Marked *ABN*(06/22/19 = UA Turbidity) 1:41 PM) [facility] [id number] 19:41:00 Test Item Value Reference Range Interpretation Comments UA Spec Grav (test code = UA Spec 1.029 1 Grav) [facility] [id number] 19:41:00 Test Item Value Reference Range Interpretation Comments UA pH (test code = UA pH) 5.0 1 5.0-8.0 [facility] [id number] 19:41:00 Test Item Value Reference Range Interpretation Comments UA Protein (test code = UA Protein) 100 mg/dL [facility] AND [id number] 19:41:00 Test Item Value Reference Range Interpretation Comments UA Glucose (test code = UA Negative mg/dL Glucose) [facility] AND [id number] 19:41:00 Test Item Value Reference Range Interpretation Comments UA Ketones (test code = UA Negative mg/dL Ketones) [facility] AND [id number] 19:41:00 Test Item Value Reference Range Interpretation Comments UA Bili (test code = Negative *NA*(06/22/19 UA Bili) 1:41 PM) [facility] AND [id number] 19:41:00 Test Item Value Reference Range Interpretation Comments UA Blood (test code = Negative (06/22/19 1:41 UA Blood) PM) [facility] AND [id number] 19:41:00 Test Item Value Reference Range Interpretation Comments UA Urobilinogen (test code = UA 4.0 0.1-1.0 Urobilinogen) [facility] AND [id number] 19:41:00 Test Item Value Reference Range Interpretation Comments UA Nitrite (test code Negative (06/22/19 1:41 = UA Nitrite) PM) [facility] AND [id number] 19:41:00 Test Item Value Reference Range Interpretation Comments UA Leuk Est (test code Small *ABN*(06/22/19 = UA Leuk Est) 1:41 PM) [facility] AND [id number] 19:41:00 Test Item Value Reference Range Interpretation Comments UA Sq Epi (test code = UA Sq Moderate /LPF Epi) [facility] AND [id number] 19:41:00 Test Item Value Reference Range Interpretation Comments UA WBC (test code = 8 See_Comment [Automa claudia message] The UA WBC) system which ge nerated this result transmit claudia reference range : <=5. The reference range was not used to interpr et this result as charlie l/abnormal. [facility] AND [id number] 19:41:00 Test Item Value Reference Range Interpretation Comments UA RBC (test code = 4 See_Comment [Automa claudia message] The UA RBC) system which ge nerated this result transmit claudia reference range : <=2. The reference range was not used to interpr et this result as charlie l/abnormal. [facility] [id number] 19:41:00 Test Item Value Reference Range Interpretation Comments UA Bacteria (test code = UA Occasional /HPF Bacteria) [facility] [id number] 19:41:00 Test Item Value Reference Range Interpretation Comments UA Mucus (test code = UA Mucus) Few /LPF [facility] [id number] 19:41:00 Test Item Value Reference Range Interpretation Comments U Preg (test code = U Negative (06/22/19 1:41 Preg) PM) [facility] [id number] 13:10:00 Test Item Value Reference Range Interpretation Comments chlamydia DNA probe (test code = Negative Negative 87492-1) [facility], semiquantitative (dipstick)2019-04-28 13:10:00 Test Item Value Reference Range Interpretation Comments protein, urine, semiquantitative Negative Negative/Trace (dipstick) (test code = 1753-3) [facility]bacteria, urine [id number] 13:10:00 Test Item Value Reference Range Interpretation Comments bacteria, urine microscopy (test None seen None seen/Few code = 5769-5) [facility]epithelial cells, [id number] 13:10:00 Test Item Value Reference Range Interpretation Comments epithelial cells, urine (test code = 0-10 0-10 5787-7) [facility]RBC, [id number] 13:10:00 Test Item Value Reference Range Interpretation Comments RBC, Urine (test code = 10033-0) 0-2 /hpf 0-2 [facility]urinalysis, microscopic [id number] 13:10:00 Test Item Value Reference Range Interpretation Comments urinalysis, microscopic examination MICRON (test code = 72234-1) [facility]nitrate, [id number] 13:10:00 Test Item Value Reference Range Interpretation Comments nitrate, urine (test code = 78375-7) Negative Negative [facility]urobilinogen, urine, semiquantitative (dipstick) 2019-04-28 13:10:00 Test Item Value Reference Range Interpretation Comments urobilinogen, urine, 0.2 (unknown 0.2-1.0 semiquantitative (dipstick) unit) (test code = 5818-0) [facility]bilirubin, [id number] 13:10:00 Test Item Value Reference Range Interpretation Comments bilirubin, urine (test code = Negative Negative 5770-3) [facility]alketones, urine, by test [id number] 13:10:00 Test Item Value Reference Range Interpretation Comments ketones, urine, by test strip (test Negative Negative code = 5797-6) [facility]glucose, urine, [id number] 13:10:00 Test Item Value Reference Range Interpretation Comments glucose, urine, semiquantitative Negative Negative (test code = 5792-7) [facility] Hospitalleukocyte esterase, urine, by [id number] 13:10:00 Test Item Value Reference Range Interpretation Comments leukocyte esterase, urine, by Negative Negative dipstick (test code = 5799-2) [facility]appearance, [id number] 13:10:00 Test Item Value Reference Range Interpretation Comments appearance, urine (test code = 5767-9) Clear Clear [facility]urine [id number] 13:10:00 Test Item Value Reference Range Interpretation Comments urine color (test code = 5778-6) Yellow Yellow [facility] HospitalpH, urine, [id number] 13:10:00 Test Item Value Reference Range Interpretation Comments pH, urine, semiquantitative 7.5 (unknown 5.0-7.5 (test code = 5803-2) unit) [facility] Hospitalspecific gravity, body [id number] 13:10:00 Test Item Value Reference Range Interpretation Comments specific gravity, body 1.017 (unknown unit) 1.005-1.030 fluid (test code = 2964-5) [facility] HospitalNeisseria gonorrhoeae DNA [id number] 13:10:00 Test Item Value Reference Range Interpretation Comments Neisseria gonorrhoeae DNA probe Negative Negative (test code = 33665-0) [facility] HospitalWBC urine on [id number] 13:10:00 Test Item Value Reference Range Interpretation Comments WBC urine on microscopy (test None seen /hpf 0-5 code = 1016) [facility] Hospitalmicroscopic [id number] 13:10:00 Test Item Value Reference Range Interpretation Comments microscopic exam (test code = See below: 24738) [facility] HospitalNeisseria gonorrhoeae DNA [id number] 13:10:00 Test Item Value Reference Range Interpretation Comments Neisseria gonorrhoeae DNA probe Negative Negative (test code = 22988-6) [facility] HospitalWBC urine on [id number] 13:10:00 Test Item Value Reference Range Interpretation Comments WBC urine on microscopy (test None seen /hpf 0-5 code = 1016) [facility] Hospitalmicroscopic [id number] 13:10:00 Test Item Value Reference Range Interpretation Comments microscopic exam (test code = See below: 64622) [facility] HospitalOccult Blood, [id number] 13:10:00 Test Item Value Reference Range Interpretation Comments Occult Blood, urine (test code = Negative Negative 8834272) [facility] HospitalMicrobial identification kit, rapid strep method 2019-04-28 11:57:37 Test Item Value Reference Range Interpretation Comments Microbial identification kit, rapid negative strep method (test code = 79300-9) [facility] Hospitalbeta HCG, urine, tckaznwcwjwaqwek2487-10-17 11:57:37 Test Item Value Reference Range Interpretation Comments beta HCG, urine, semiquantitative negative (test code = 2106-3) [facility] Hospitalhemoglobin A1C, blood, as % of total [id number] 14:58:00 Test Item Value Reference Range Interpretation Comments hemoglobin A1C, blood, as % of total 5.3 % 4.8-5.6 hemoglobin (test code = 4548-4) [facility] HospitalLDL cholesterol, [id number] 14:58:00 Test Item Value Reference Range Interpretation Comments LDL cholesterol, serum (test code = 63 mg/dL 0-109 9-1) [facility] HospitalHDL cholesterol, [id number] 14:58:00 Test Item Value Reference Range Interpretation Comments HDL cholesterol, serum (test code = 54 mg/dL >39 5-9) [facility] Hospitaltriglyceride, serum, [id number] 14:58:00 Test Item Value Reference Range Interpretation Comments triglyceride, serum, fasting (test 65 mg/dL 0-89 code = 2571-8) [facility]cholesterol, [id number] 14:58:00 Test Item Value Reference Range Interpretation Comments cholesterol, serum (test code = 130 mg/dL 527-386 3970-3) [facility] Hospitalvitamin D 25-hydroxy, [id number] 14:58:00 Test Item Value Reference Range Interpretation Comments vitamin D 25-hydroxy, serum (test 20.2 ng/mL 30.0-100.0 L code = 39850-3) [facility] Hospitalvery low density yxpxkuwcdmlm5720-77-32 14:58:00 Test Item Value Reference Range Interpretation Comments very low density lipoproteins (test 13 mg/dL 5-40 code = 2091-7) [facility] Hospitalalanine aminotransferase (SGPT), [id number] 14:58:00 Test Item Value Reference Range Interpretation Comments alanine aminotransferase (SGPT), serum 15 1/L 0-24 (test code = 1742-6) [facility] Hospitalaspartate aminotransferase (SGOT), [id number] 14:58:00 Test Item Value Reference Range Interpretation Comments aspartate aminotransferase (SGOT), 19 1/L 0-40 serum (test code = 1920-8) [facility] Hospitalalkaline phosphatase, [id number] 14:58:00 Test Item Value Reference Range Interpretation Comments alkaline phosphatase, serum (test code 81 1/L 54-121 = 1783-0) [facility] Hospitalbilirubin, serum, [id number] 14:58:00 Test Item Value Reference Range Interpretation Comments bilirubin, serum, total (test code 0.7 mg/dL 0.0-1.2 = 1975-2) [facility], [id number] 14:58:00 Test Item Value Reference Range Interpretation Comments albumin/globulin ratio, 1.7 (unknown unit) 1.2-2.2 serum (test code = 1759-0) [facility], [id number] 14:58:00 Test Item Value Reference Range Interpretation Comments globulin, serum (test code 2.7 (unknown unit) 1.5-4.5 = 2336-6) [facility]in, [id number] 14:58:00 Test Item Value Reference Range Interpretation Comments albumin, serum (test code = 1751-7) 4.6 g/dL 3.5-5.5 [facility] Healthprotein, total, [id number] 14:58:00 Test Item Value Reference Range Interpretation Comments protein, total, serum (test code = 7.3 g/dL 6.0-8.5 2885-2) [facility] Healthcalcium, [id number] 14:58:00 Test Item Value Reference Range Interpretation Comments calcium, serum (test code = 1999-8) 9.3 mg/dL 8.9-10.4 [facility], venous [id number] 14:58:00 Test Item Value Reference Range Interpretation Comments carbon dioxide, venous blood (test 20 mmol/L 20- code = 2026-1) [facility] Healthchloride, [id number] 14:58:00 Test Item Value Reference Range Interpretation Comments chloride, serum (test code = 103 mmol/L 96-106 5-0) [facility] Healthpotassium, [id number] 14:58:00 Test Item Value Reference Range Interpretation Comments potassium, serum (test code = 4.2 mmol/L 3.5-5.2 2823-3) [facility] Healthsodium, [id number] 14:58:00 Test Item Value Reference Range Interpretation Comments sodium, serum (test code = 2951-2) 140 mmol/L 134-144 [facility] nitrogen/creatinine ratio, [id number] 14:58:00 Test Item Value Reference Range Interpretation Comments urea nitrogen/creatinine 13 (unknown unit) 10-22 ratio, serum (test code = 3097-3) [facility] Healthcreatinine, [id number] 14:58:00 Test Item Value Reference Range Interpretation Comments creatinine, serum (test code = 0.55 mg/dL 0.57-1.00 L 2160-0) [facility] nitrogen, [id number] 14:58:00 Test Item Value Reference Range Interpretation Comments urea nitrogen, blood (test code = 7 mg/dL -18 3094-0) [facility]blood glucose, [id number] 14:58:00 Test Item Value Reference Range Interpretation Comments blood glucose, random (test code = 67 mg/dL 65-99 2339-0) [facility] Hospitalimmature granulocytes, percentage of total cells, blood 2018-12-05 14:58:00 Test Item Value Reference Range Interpretation Comments immature granulocytes, percentage of 0 % total cells, blood (test code = 75777-8) [facility] Healthbasophil count, [id number] 14:58:00 Test Item Value Reference Range Interpretation Comments basophil count, absolute (test 0.0 x10E3/uL 0.0-0.3 code = 41780-6) [facility] HealthEosinophil Absolute [id number] 14:58:00 Test Item Value Reference Range Interpretation Comments Eosinophil Absolute Count (test 0.1 X10E3/UL 0.0-0.4 code = 14107-1) [facility] Hospitalmonocyte count, blood, [id number] 14:58:00 Test Item Value Reference Range Interpretation Comments monocyte count, blood, automated 0.4 X10E3/UL 0.1-0.9 (test code = 742-7) [facility]allymph[facility] count, blood, [id number] 14:58:00 Test Item Value Reference Range Interpretation Comments lymphocyte count, blood, 1.9 X10E3/UL 0.7-3.1 automated (test code = 731-0) [facility] HospitalAbsolute Rmfjszqgleo9504-25-56 14:58:00 Test Item Value Reference Range Interpretation Comments Absolute Neutrophils (test code 3.7 X10E3/UL 1.4-7.0 = 25563-3) [facility]basophils as percent of blood [id number] 14:58:00 Test Item Value Reference Range Interpretation Comments basophils as percent of blood 0 % leukocytes (test code = 707-0) [facility] Healtheosinophils as percent of blood slzrumcpbx9584-08-99 14:58:00 Test Item Value Reference Range Interpretation Comments eosinophils as percent of blood 2 % leukocytes (test code = 713-8) [facility] Healthmonocytes as percent of blood [id number] 14:58:00 Test Item Value Reference Range Interpretation Comments monocytes as percent of blood 6 % leukocytes (test code = 5905-5) [facility]allymphocytes as percent of blood rpezocbufm7627-92-39 14:58:00 Test Item Value Reference Range Interpretation Comments lymphocytes as percent of blood 31 % leukocytes (test code = 736-9) [facility] Hospitalneutrophils as percent of blood [id number] 14:58:00 Test Item Value Reference Range Interpretation Comments neutrophils as percent of blood 61 % leukocytes (test code = 770-8) [facility] Hospitalplatelet [id number] 14:58:00 Test Item Value Reference Range Interpretation Comments platelet count (test code = 219 X10E3/UL 150-379 777-3) [facility] Hospitalred blood cell distribution [id number] 14:58:00 Test Item Value Reference Range Interpretation Comments red blood cell distribution width 14.9 % 12.3-15.4 (test code = 788-0) [facility] corpuscular hemoglobin concentration, [id number] 14:58:00 Test Item Value Reference Range Interpretation Comments mean corpuscular hemoglobin 32.4 G/DL 31.5-35.7 concentration, RBC (test code = 786-4) [facility] corpuscular hemoglobin, [id number] 14:58:00 Test Item Value Reference Range Interpretation Comments mean corpuscular hemoglobin, RBC 26.3 pg 26.6-33.0 L (test code = 785-6) [facility] corpuscular volume, [id number] 14:58:00 Test Item Value Reference Range Interpretation Comments mean corpuscular volume, RBC (test code 81 fL 79-97 = 787-2) [facility]hematocrit, [id number] 14:58:00 Test Item Value Reference Range Interpretation Comments hematocrit, blood (test code = 4544-3) 40.1 % 34.0-46.6 [facility]hemoglobin, [id number] 14:58:00 Test Item Value Reference Range Interpretation Comments hemoglobin, blood (test code = 13.0 g/dL 11.1-15.9 718-7) [facility] Hospitalerythrocyte (RBC) [id number] 14:58:00 Test Item Value Reference Range Interpretation Comments erythrocyte (RBC) count (test 4.94 X10E6/UL 3.77-5.28 code = 789-8) [facility] Hospitalleukocyte count, [id number] 14:58:00 Test Item Value Reference Range Interpretation Comments leukocyte count, blood (test 6.0 X10E3/UL 3.4-10.8 code = 6690-2) [facility] Hospitalthyroxine, serum, [id number] 14:58:00 Test Item Value Reference Range Interpretation Comments thyroxine, serum, free (test code 1.25 ng/dL 0.93-1.60 = 3024-7) [facility] Hospitalthyroid stimulating hormone, [id number] 14:58:00 Test Item Value Reference Range Interpretation Comments thyroid stimulating hormone, 1.230 u[IU]/mL 0.450-4.500 serum (test code = 3016-3) [facility] Hospitalbeta HCG, urine, nzadfxipnndvjcay1665-15-13 17:03:37 Test Item Value Reference Range Interpretation Comments beta HCG, urine, semiquantitative negative (test code = 2106-3) [facility] Hospitalchlamydia DNA [id number] 00:00:00 Test Item Value Reference Range Interpretation Comments chlamydia DNA probe (test code = Negative Negative 28893-5) [facility] HospitalNeisseria gonorrhoeae DNA [id number] 00:00:00 Test Item Value Reference Range Interpretation Comments Neisseria gonorrhoeae DNA probe Negative Negative (test code = 33638-4) [facility] HospitalNeisseria gonorrhoeae DNA [id number] 00:00:00 Test Item Value Reference Range Interpretation Comments Neisseria gonorrhoeae DNA probe Negative Negative (test code = 60352-1) [facility] HospitalURINE AND [id number] 04:52:00 Test Item Value Reference Range Interpretation Comments UA Color (test code = UA Color) STRAW [facility] AND [id number] 04:52:00 Test Item Value Reference Range Interpretation Comments UA Protein (test code Negative (09/15/18 10:52 = UA Protein) PM) [facility] AND [id number] 04:52:00 Test Item Value Reference Range Interpretation Comments UA Turbidity (test code = Clear (09/15/18 10:52 UA Turbidity) PM) [facility] AND [id number] 04:52:00 Test Item Value Reference Range Interpretation Comments UA pH (test code = UA pH) 6.0 1 5.0-8.0 [facility] AND [id number] 04:52:00 Test Item Value Reference Range Interpretation Comments UA Spec Grav (test code = UA Spec 1.008 1 Grav) [facility] AND [id number] 04:52:00 Test Item Value Reference Range Interpretation Comments UA Ketones (test code Negative *NA*(09/15/18 = UA Ketones) 10:52 PM) [facility] AND [id number] 04:52:00 Test Item Value Reference Range Interpretation Comments UA Glucose (test code Negative *NA*(09/15/18 = UA Glucose) 10:52 PM) [facility] AND [id number] 04:52:00 Test Item Value Reference Range Interpretation Comments UA Bili (test code = Negative *NA*(09/15/18 UA Bili) 10:52 PM) [facility] AND [id number] 04:52:00 Test Item Value Reference Range Interpretation Comments UA Blood (test code = Negative (09/15/18 10:52 UA Blood) PM) [facility] AND [id number] 04:52:00 Test Item Value Reference Range Interpretation Comments UA Nitrite (test code Negative (09/15/18 10:52 = UA Nitrite) PM) [facility] AND [id number] 04:52:00 Test Item Value Reference Range Interpretation Comments UA Urobilinogen (test code = UA <=1.0 mg/dL 0.1-1.0 Urobilinogen) [facility] AND [id number] 04:52:00 Test Item Value Reference Range Interpretation Comments UA WBC (test code = 1 See_Comment [Automa claudia message] The UA WBC) system which ge nerated this result transmit claudia reference range : <=5. The reference range was not used to interpr et this result as charlie l/abnormal. [facility] AND [id number] 04:52:00 Test Item Value Reference Range Interpretation Comments UA Mucus (test code = UA Mucus) Few /LPF [facility] AND [id number] 04:52:00 Test Item Value Reference Range Interpretation Comments UA Sq Epi (test code = UA Sq Epi) [facility] [id number] 04:52:00 Test Item Value Reference Range Interpretation Comments UA Leuk Est (test Negative (09/15/18 10:52 code = UA Leuk Est) PM) [facility] [id number] 04:52:00 Test Item Value Reference Range Interpretation Comments UA RBC (test code = 1 See_Comment [Automa claudia message] The UA RBC) system which ge nerated this result transmit claudia reference range : <=2. The reference range was not used to interpr et this result as charlie l/abnormal. [facility] AND [id number] 04:52:00 Test Item Value Reference Range Interpretation Comments UA Color (test code = UA Color) STRAW [facility] AND [id number] 04:52:00 Test Item Value Reference Range Interpretation Comments UA Protein (test code Negative (09/15/18 10:52 = UA Protein) PM) [facility] AND [id number] 04:52:00 Test Item Value Reference Range Interpretation Comments UA Turbidity (test code = Clear (09/15/18 10:52 UA Turbidity) PM) [facility] AND [id number] 04:52:00 Test Item Value Reference Range Interpretation Comments UA pH (test code = UA pH) 6.0 1 5.0-8.0 [facility] AND [id number] 04:52:00 Test Item Value Reference Range Interpretation Comments UA Spec Grav (test code = UA Spec 1.008 1 Grav) [facility] [id number] 04:52:00 Test Item Value Reference Range Interpretation Comments UA Ketones (test code Negative *NA*(09/15/18 = UA Ketones) 10:52 PM) [facility] AND [id number] 04:52:00 Test Item Value Reference Range Interpretation Comments UA Glucose (test code Negative *NA*(09/15/18 = UA Glucose) 10:52 PM) [facility] AND [id number] 04:52:00 Test Item Value Reference Range Interpretation Comments UA Bili (test code = Negative *NA*(09/15/18 UA Bili) 10:52 PM) [facility] [id number] 04:52:00 Test Item Value Reference Range Interpretation Comments UA Blood (test code = Negative (09/15/18 10:52 UA Blood) PM) [facility] [id number] 04:52:00 Test Item Value Reference Range Interpretation Comments UA Nitrite (test code Negative (09/15/18 10:52 = UA Nitrite) PM) [facility] AND [id number] 04:52:00 Test Item Value Reference Range Interpretation Comments UA Urobilinogen (test code = UA <=1.0 mg/dL 0.1-1.0 Urobilinogen) [facility] [id number] 04:52:00 Test Item Value Reference Range Interpretation Comments UA WBC (test code = 1 See_Comment [Automa claudia message] The UA WBC) system which ge nerated this result transmit claudia reference range : <=5. The reference range was not used to interpr et this result as charlie l/abnormal. [facility] [id number] 04:52:00 Test Item Value Reference Range Interpretation Comments UA Mucus (test code = UA Mucus) Few /LPF [facility] [id number] 04:52:00 Test Item Value Reference Range Interpretation Comments UA Sq Epi (test code = UA Sq Epi) Few /LPF [facility] [id number] 04:52:00 Test Item Value Reference Range Interpretation Comments UA Leuk Est (test Negative (09/15/18 10:52 code = UA Leuk Est) PM) [facility] [id number] 04:52:00 Test Item Value Reference Range Interpretation Comments UA RBC (test code = 1 See_Comment [Automa claudia message] The UA RBC) system which ge nerated this result transmit claudia reference range : <=2. The reference range was not used to interpr et this result as charlie l/abnormal. [facility] [id number] 04:52:00 Test Item Value Reference Range Interpretation Comments UA Color (test code = UA Color) [facility] AND [id number] 04:52:00 Test Item Value Reference Range Interpretation Comments UA Protein (test code Negative (09/15/18 10:52 = UA Protein) PM) [facility] AND [id number] 04:52:00 Test Item Value Reference Range Interpretation Comments UA Turbidity (test code = Clear (09/15/18 10:52 UA Turbidity) PM) [facility] AND [id number] 04:52:00 Test Item Value Reference Range Interpretation Comments UA pH (test code = UA pH) 6.0 1 5.0-8.0 [facility] AND [id number] 04:52:00 Test Item Value Reference Range Interpretation Comments UA Spec Grav (test code = UA Spec 1.008 1 Grav) [facility] AND [id number] 04:52:00 Test Item Value Reference Range Interpretation Comments UA Ketones (test code Negative *NA*(09/15/18 = UA Ketones) 10:52 PM) [facility] AND [id number] 04:52:00 Test Item Value Reference Range Interpretation Comments UA Glucose (test code Negative *NA*(09/15/18 = UA Glucose) 10:52 PM) [facility] AND [id number] 04:52:00 Test Item Value Reference Range Interpretation Comments UA Bili (test code = Negative *NA*(09/15/18 UA Bili) 10:52 PM) [facility] AND [id number] 04:52:00 Test Item Value Reference Range Interpretation Comments UA Blood (test code = Negative (09/15/18 10:52 UA Blood) PM) [facility] AND [id number] 04:52:00 Test Item Value Reference Range Interpretation Comments UA Nitrite (test code Negative (09/15/18 10:52 = UA Nitrite) PM) [facility] AND [id number] 04:52:00 Test Item Value Reference Range Interpretation Comments UA Urobilinogen (test code = UA <=1.0 mg/dL 0.1-1.0 Urobilinogen) [facility] AND [id number] 04:52:00 Test Item Value Reference Range Interpretation Comments UA WBC (test code = UA WBC) 1 <=5 [facility] AND [id number] 04:52:00 Test Item Value Reference Range Interpretation Comments UA Mucus (test code = UA Mucus) Few /LPF [facility] [id number] 04:52:00 Test Item Value Reference Range Interpretation Comments UA Sq Epi (test code = UA Sq Epi) Few /LPF [facility] [id number] 04:52:00 Test Item Value Reference Range Interpretation Comments UA Leuk Est (test Negative (09/15/18 10:52 code = UA Leuk Est) PM) [facility] [id number] 04:52:00 Test Item Value Reference Range Interpretation Comments UA RBC (test code = UA RBC) 1 <=2 [facility] [id number] 04:52:00 Test Item Value Reference Range Interpretation Comments UA Color (test code = UA Color) STRAW [facility] AND [id number] 04:52:00 Test Item Value Reference Range Interpretation Comments UA Protein (test code Negative (09/15/18 10:52 = UA Protein) PM) [facility] [id number] 04:52:00 Test Item Value Reference Range Interpretation Comments UA Turbidity (test code = Clear (09/15/18 10:52 UA Turbidity) PM) [facility] [id number] 04:52:00 Test Item Value Reference Range Interpretation Comments UA pH (test code = UA pH) 6.0 1 5.0-8.0 [facility] [id number] 04:52:00 Test Item Value Reference Range Interpretation Comments UA Spec Grav (test code = UA Spec 1.008 1 Grav) [facility] [id number] 04:52:00 Test Item Value Reference Range Interpretation Comments UA Ketones (test code Negative *NA*(09/15/18 = UA Ketones) 10:52 PM) [facility] [id number] 04:52:00 Test Item Value Reference Range Interpretation Comments UA Glucose (test code Negative *NA*(09/15/18 = UA Glucose) 10:52 PM) [facility] [id number] 04:52:00 Test Item Value Reference Range Interpretation Comments UA Bili (test code = Negative *NA*(09/15/18 UA Bili) 10:52 PM) [facility] [id number] 04:52:00 Test Item Value Reference Range Interpretation Comments UA Blood (test code = Negative (09/15/18 10:52 UA Blood) PM) [facility] [id number] 04:52:00 Test Item Value Reference Range Interpretation Comments UA Nitrite (test code Negative (09/15/18 10:52 = UA Nitrite) PM) [facility] AND [id number] 04:52:00 Test Item Value Reference Range Interpretation Comments UA Urobilinogen (test code = UA <=1.0 mg/dL 0.1-1.0 Urobilinogen) [facility] [id number] 04:52:00 Test Item Value Reference Range Interpretation Comments UA WBC (test code = 1 See_Comment [Automa claudia message] The UA WBC) system which ge nerated this result transmit claudia reference range : <=5. The reference range was not used to interpr et this result as charlie l/abnormal. [facility] [id number] 04:52:00 Test Item Value Reference Range Interpretation Comments UA Mucus (test code = UA Mucus) Few /LPF [facility] [id number] 04:52:00 Test Item Value Reference Range Interpretation Comments UA Sq Epi (test code = UA Sq Epi) Few /LPF [facility] [id number] 04:52:00 Test Item Value Reference Range Interpretation Comments UA Leuk Est (test Negative (09/15/18 10:52 code = UA Leuk Est) PM) [facility] AND [id number] 04:52:00 Test Item Value Reference Range Interpretation Comments UA RBC (test code = 1 See_Comment [Automa claudia message] The UA RBC) system which ge nerated this result transmit claudia reference range : <=2. The reference range was not used to interpr et this result as charlie l/abnormal. [facility] [id number] 03:56:00 Test Item Value Reference Range Interpretation Comments Chloride Lvl (test code = Chloride Lvl) 105 95-109 [facility] [id number] 03:56:00 Test Item Value Reference Range Interpretation Comments CO2 (test code = CO2) 28 24-32 [facility] [id number] 03:56:00 Test Item Value Reference Range Interpretation Comments Potassium Lvl (test code = Potassium 3.8 3.5-5.1 Lvl) [facility]2019-02-27 03:56:00 Test Item Value Reference Range Interpretation Comments Glucose Lvl (test code = Glucose Lvl) 85 70-99 [place] [id number] 03:56:00 Test Item Value Reference Range Interpretation Comments BUN (test code = BUN) 8 7-22 [place] [id number] 03:56:00 Test Item Value Reference Range Interpretation Comments Sodium Lvl (test code = Sodium Lvl) 139 135-145 [place] [id number] 03:56:00 Test Item Value Reference Range Interpretation Comments Creatinine Lvl (test code = Creatinine 0.63 0.50-1.40 Lvl) [place] [id number] 03:56:00 Test Item Value Reference Range Interpretation Comments Calcium Lvl (test code = Calcium Lvl) 9.0 8.5-10.5 [facility]2019-02-27 03:56:00 Test Item Value Reference Range Interpretation Comments AST (test code = AST) 20 See_Comment [Auto mated message] The system which ge nerated this result transmit claudia reference range : <=37. The reference range was not used to interpr et this result as charlie l/abnormal. [facility]2019-02-27 03:56:00 Test Item Value Reference Range Interpretation Comments Alk Phos (test code = Alk Phos) 105 80-406 [facility]2019-02-27 03:56:00 Test Item Value Reference Range Interpretation Comments ALT (test code = ALT) 22 See_Comment [Auto mated message] The system which ge nerated this result transmit claudia reference range : <=65. The reference range was not used to interpr et this result as charlie l/abnormal. [facility]2019-02-27 03:56:00 Test Item Value Reference Range Interpretation Comments Albumin Lvl (test code = Albumin Lvl) 3.8 3.5-5.0 [place] [id number] 03:56:00 Test Item Value Reference Range Interpretation Comments Bili Total (test code = Bili Total) 0.4 0.2-1.3 [facility]2019-02-27 03:56:00 Test Item Value Reference Range Interpretation Comments Globulin (test code = Globulin) 4.7 2.7-4.2 [facility]2019-02-27 03:56:00 Test Item Value Reference Range Interpretation Comments A/G Ratio (test code = A/G Ratio) 0.8 1 0.7-1.6 [facility]2019-02-27 03:56:00 Test Item Value Reference Range Interpretation Comments B/C Ratio (test code = B/C Ratio) 13 1 6-25 [facility]2019-02-27 03:56:00 Test Item Value Reference Range Interpretation Comments AGAP (test code = AGAP) 9.8 10.0-20.0 [place] [id number] 03:56:00 Test Item Value Reference Range Interpretation Comments S Preg (test code = S Negative *NA*(09/15/18 Preg) 9:56 PM) [id number] 03:56:00 Test Item Value Reference Range Interpretation Comments MPV (test code = MPV) 9.3 7.4-10.4 [facility] StationJljrgaxIBVBZIIGWM9581-88-18 03:56:00 Test Item Value Reference Range Interpretation Comments MCHC (test code = MCHC) 33.6 32.0-36.0 [facility] StationOotvrhoKSLEPMCDCC7532-91-01 03:56:00 Test Item Value Reference Range Interpretation Comments MCV (test code = MCV) 78.8 80.0-98.0 [facility] StationHtsgvarWUWERVZLEN2456-77-88 03:56:00 Test Item Value Reference Range Interpretation Comments MCH (test code = MCH) 26.5 pg 27.0-31.0 [facility] StationCiwqjjmKEGDTAZBXR5274-04-17 03:56:00 Test Item Value Reference Range Interpretation Comments Hgb (test code = Hgb) 13.5 12.0-16.0 [facility] StationQgkqyppJSRZGPGLTW8493-83-00 03:56:00 Test Item Value Reference Range Interpretation Comments RBC (test code = RBC) 5.09 4.20-5.40 [facility] StationPlgvhqqBXSPNWYYZQ5883-86-54 03:56:00 Test Item Value Reference Range Interpretation Comments Hct (test code = Hct) 40.1 36.0-48.0 [facility] StationIozgyaiFHPRVHOHFA4151-28-98 03:56:00 Test Item Value Reference Range Interpretation Comments Platelet (test code = Platelet) 258 133-450 [facility] StationLufzaxwQSSBHNQSEP3903-22-34 03:56:00 Test Item Value Reference Range Interpretation Comments RDW (test code = RDW) 14.3 11.5-14.5 [facility] StationNdzlurjRHTFYUBNRH2518-13-58 03:56:00 Test Item Value Reference Range Interpretation Comments WBC (test code = WBC) 8.2 4.5-13.5 [facility] StationKljzdqxZLLULEPCOM0830-52-77 03:56:00 Test Item Value Reference Range Interpretation Comments Microcyte (test code = 1+ *ABN*(09/15/18 Microcyte) 9:56 PM) [facility] StationEvqaaolBVEDXLSBNV4711-39-67 03:56:00 Test Item Value Reference Range Interpretation Comments Basophils (test code = 0.1 See_Comment [Aut omated message] The Basophils) system which ge nerated this result tra nsmitted reference range : <=1.0. The reference r deandra was not used to int erpret this result as normal/abnormal . [facility] StationWgdrizyJAIHINAYYF2773-72-46 03:56:00 Test Item Value Reference Range Interpretation Comments Monocytes # (test code 0.6 See_Comment [Aut omated message] The = Monocytes #) system which generated this result tra nsmitted reference range : <=1.6. The reference r deandra was not used to int erpret this result as normal/abnormal . [facility] StationSdvbqzsREEIYNYCEO5379-96-42 03:56:00 Test Item Value Reference Range Interpretation Comments Eosinophils # (test code 0.2 See_Comment [A utomated message] The = Eosinophils #) system whic h generated this result tra nsmitted reference range : <=0.5. The reference r deandra was not used to int erpret this result as normal/abnormal . [facility] StationBdheftaWPCOIZPAOR9758-47-54 03:56:00 Test Item Value Reference Range Interpretation Comments Neutrophils # (test code = Neutrophils 5.1 1.5-8.7 #) [facility] StationVhmmqduTKPCFQWIGJ1021-04-24 03:56:00 Test Item Value Reference Range Interpretation Comments Lymphocytes # (test code = Lymphocytes 2.3 1.0-5.5 #) [facility] StationQtlerfkIDSZJPUTTX2673-52-41 03:56:00 Test Item Value Reference Range Interpretation Comments Lymphocytes (test code = Lymphocytes) 28.5 20.0-40.0 [facility] StationKcvhkkvJTRMOQFKNW9251-66-09 03:56:00 Test Item Value Reference Range Interpretation Comments Monocytes (test code = Monocytes) 7.3 2.0-12.0 [place] 082159-02-27 03:56:00 Test Item Value Reference Range Interpretation Comments Segs (test code = Segs) 62.1 34.0-64.0 [facility] StationOsmxfmwZHMCSONDBS3784-88-69 03:56:00 Test Item Value Reference Range Interpretation Comments Eosinophils (test code = 2.0 See_Comment [A utomated message] The Eosinophils) system which ge nerated this result tra nsmitted reference range : <=4.0. The reference r deandra was not used to int erpret this result as normal/abnormal . [facility]2019-02-27 03:56:00 Test Item Value Reference Range Interpretation Comments Lipase Lvl (test code = Lipase Lvl) 90 73-393 [facility]2019-02-27 03:56:00 Test Item Value Reference Range Interpretation Comments eGFR (test code = eGFR) See Comment [facility]2019-02-27 03:56:00 Test Item Value Reference Range Interpretation Comments Total Protein (test code = Total 8.5 6.4-8.4 Protein) [facility]2019-02-27 03:56:00 Test Item Value Reference Range Interpretation Comments Chloride Lvl (test code = Chloride Lvl) 105 95-109 [facility]2019-02-27 03:56:00 Test Item Value Reference Range Interpretation Comments CO2 (test code = CO2) 28 24-32 [facility]2019-02-27 03:56:00 Test Item Value Reference Range Interpretation Comments Potassium Lvl (test code = Potassium 3.8 3.5-5.1 Lvl) [place] 048699-02-27 03:56:00 Test Item Value Reference Range Interpretation Comments Glucose Lvl (test code = Glucose Lvl) 85 70-99 [facility]2019-02-27 03:56:00 Test Item Value Reference Range Interpretation Comments BUN (test code = BUN) 8 7-22 [facility]2019-02-27 03:56:00 Test Item Value Reference Range Interpretation Comments Sodium Lvl (test code = Sodium Lvl) 139 135-145 [facility]2019-02-27 03:56:00 Test Item Value Reference Range Interpretation Comments Creatinine Lvl (test code = Creatinine 0.63 0.50-1.40 Lvl) [facility]2019-02-27 03:56:00 Test Item Value Reference Range Interpretation Comments Calcium Lvl (test code = Calcium Lvl) 9.0 8.5-10.5 [facility]2019-02-27 03:56:00 Test Item Value Reference Range Interpretation Comments AST (test code = AST) 20 See_Comment [Auto mated message] The system which ge nerated this result transmit claudia reference range : <=37. The reference range was not used to interpr et this result as charlie l/abnormal. [facility]2019-02-27 03:56:00 Test Item Value Reference Range Interpretation Comments Alk Phos (test code = Alk Phos) 105 80-406 [facility]2019-02-27 03:56:00 Test Item Value Reference Range Interpretation Comments ALT (test code = ALT) 22 See_Comment [Auto mated message] The system which ge nerated this result transmit claudia reference range : <=65. The reference range was not used to interpr et this result as charlie l/abnormal. [facility]2019-02-27 03:56:00 Test Item Value Reference Range Interpretation Comments Albumin Lvl (test code = Albumin Lvl) 3.8 3.5-5.0 [place] 048699-02-27 03:56:00 Test Item Value Reference Range Interpretation Comments Bili Total (test code = Bili Total) 0.4 0.2-1.3 [facility]2019-02-27 03:56:00 Test Item Value Reference Range Interpretation Comments Globulin (test code = Globulin) 4.7 2.7-4.2 [facility]2019-02-27 03:56:00 Test Item Value Reference Range Interpretation Comments A/G Ratio (test code = A/G Ratio) 0.8 1 0.7-1.6 [facility] EZGXD9196-62-09 03:56:00 Test Item Value Reference Range Interpretation Comments B/C Ratio (test code = B/C Ratio) 13 1 6-25 [facility] TJVLQ2573-57-89 03:56:00 Test Item Value Reference Range Interpretation Comments AGAP (test code = AGAP) 9.8 10.0-20.0 [facility]EtflvwvHNMASQQXNALAZ7285-12-36 03:56:00 Test Item Value Reference Range Interpretation Comments S Preg (test code = S Negative *NA*(09/15/18 Preg) 9:56 PM) [facility] StationHdhpsioHVBAKZOXNG9276-03-47 03:56:00 Test Item Value Reference Range Interpretation Comments MPV (test code = MPV) 9.3 7.4-10.4 [facility] StationGcslvuoNXTGNDZJLZ7446-08-77 03:56:00 Test Item Value Reference Range Interpretation Comments MCHC (test code = MCHC) 33.6 32.0-36.0 [facility] StationTvbsrjeFTGMAIFUHS2866-60-19 03:56:00 Test Item Value Reference Range Interpretation Comments MCV (test code = MCV) 78.8 80.0-98.0 [facility] StationOjuncsyFSIPZTLTKL7745-47-61 03:56:00 Test Item Value Reference Range Interpretation Comments MCH (test code = MCH) 26.5 pg 27.0-31.0 [facility] StationQpdfgyhLDVMTULLVD6728-61-49 03:56:00 Test Item Value Reference Range Interpretation Comments Hgb (test code = Hgb) 13.5 12.0-16.0 [facility] StationCboexliLPUYDQKFHS7905-68-33 03:56:00 Test Item Value Reference Range Interpretation Comments RBC (test code = RBC) 5.09 4.20-5.40 [facility] StationMleahhwQRPYZTLMCJ9275-74-72 03:56:00 Test Item Value Reference Range Interpretation Comments Hct (test code = Hct) 40.1 36.0-48.0 [facility] StationMpmnlpqGNUNQVYVUA7492-94-63 03:56:00 Test Item Value Reference Range Interpretation Comments Platelet (test code = Platelet) 258 133-450 [facility] StationUktkpfvYNWBHPEBFU0276-54-77 03:56:00 Test Item Value Reference Range Interpretation Comments RDW (test code = RDW) 14.3 11.5-14.5 [facility] StationFwnxdzfGOMLWHNZVP2069-27-12 03:56:00 Test Item Value Reference Range Interpretation Comments WBC (test code = WBC) 8.2 4.5-13.5 [facility] StationWyxyzuqYLVJFCOPDE8861-38-25 03:56:00 Test Item Value Reference Range Interpretation Comments Microcyte (test code = 1+ *ABN*(09/15/18 Microcyte) 9:56 PM) [facility] StationEjodvrqGXUUCYVILV8643-26-52 03:56:00 Test Item Value Reference Range Interpretation Comments Basophils (test code = 0.1 See_Comment [Aut omated message] The Basophils) system which ge nerated this result tra nsmitted reference range : <=1.0. The reference r deandra was not used to int erpret this result as normal/abnormal . [facility] StationXxyenvzCUCBFWODJR9768-65-90 03:56:00 Test Item Value Reference Range Interpretation Comments Monocytes # (test code 0.6 See_Comment [Aut omated message] The = Monocytes #) system which generated this result tra nsmitted reference range : <=1.6. The reference r deandra was not used to int erpret this result as normal/abnormal . [facility] StationLwlxonlDAQIMMFYAH9158-28-95 03:56:00 Test Item Value Reference Range Interpretation Comments Eosinophils # (test code 0.2 See_Comment [A utomated message] The = Eosinophils #) system whic h generated this result tra nsmitted reference range : <=0.5. The reference r deandra was not used to int erpret this result as normal/abnormal . [facility] StationZubzuffEMZGXRJAIY9809-46-63 03:56:00 Test Item Value Reference Range Interpretation Comments Neutrophils # (test code = Neutrophils 5.1 1.5-8.7 #) [facility] StationVmpdivcSVJKYFCXSB2055-04-46 03:56:00 Test Item Value Reference Range Interpretation Comments Lymphocytes # (test code = Lymphocytes 2.3 1.0-5.5 #) [facility] StationFfnfpvkCUXAHJBGFU8785-13-89 03:56:00 Test Item Value Reference Range Interpretation Comments Lymphocytes (test code = Lymphocytes) 28.5 20.0-40.0 [facility] StationAmssgwkTEPDNEVAPD9517-84-55 03:56:00 Test Item Value Reference Range Interpretation Comments Monocytes (test code = Monocytes) 7.3 2.0-12.0 [place] 082159-02-27 03:56:00 Test Item Value Reference Range Interpretation Comments Segs (test code = Segs) 62.1 34.0-64.0 [facility] StationOrhrwdlWHZWRUMVNM4492-94-04 03:56:00 Test Item Value Reference Range Interpretation Comments Eosinophils (test code = 2.0 See_Comment [A utomated message] The Eosinophils) system which ge nerated this result tra nsmitted reference range : <=4.0. The reference r deandra was not used to int erpret this result as normal/abnormal . [facility]2019-02-27 03:56:00 Test Item Value Reference Range Interpretation Comments Lipase Lvl (test code = Lipase Lvl) 90 73-393 [facility]2019-02-27 03:56:00 Test Item Value Reference Range Interpretation Comments eGFR (test code = eGFR) See Comment [facility]2019-02-27 03:56:00 Test Item Value Reference Range Interpretation Comments Total Protein (test code = Total 8.5 6.4-8.4 Protein) [facility]2019-02-27 03:56:00 Test Item Value Reference Range Interpretation Comments Chloride Lvl (test code = Chloride Lvl) 105 95-109 [facility]2019-02-27 03:56:00 Test Item Value Reference Range Interpretation Comments CO2 (test code = CO2) 28 24-32 [facility]2019-02-27 03:56:00 Test Item Value Reference Range Interpretation Comments Potassium Lvl (test code = Potassium 3.8 3.5-5.1 Lvl) [facility]2019-02-27 03:56:00 Test Item Value Reference Range Interpretation Comments Glucose Lvl (test code = Glucose Lvl) 85 70-99 [facility]2019-02-27 03:56:00 Test Item Value Reference Range Interpretation Comments BUN (test code = BUN) 8 7-22 [facility]2019-02-27 03:56:00 Test Item Value Reference Range Interpretation Comments Sodium Lvl (test code = Sodium Lvl) 139 135-145 [facility]2019-02-27 03:56:00 Test Item Value Reference Range Interpretation Comments Creatinine Lvl (test code = Creatinine 0.63 0.50-1.40 Lvl) [facility]2019-02-27 03:56:00 Test Item Value Reference Range Interpretation Comments Calcium Lvl (test code = Calcium Lvl) 9.0 8.5-10.5 [facility]2019-02-27 03:56:00 Test Item Value Reference Range Interpretation Comments AST (test code = AST) 20 See_Comment [Auto mated message] The system which ge nerated this result transmit claudia reference range : <=37. The reference range was not used to interpr et this result as charlie l/abnormal. [place] 048699-02-27 03:56:00 Test Item Value Reference Range Interpretation Comments Alk Phos (test code = Alk Phos) 105 80-406 [facility]2019-02-27 03:56:00 Test Item Value Reference Range Interpretation Comments ALT (test code = ALT) 22 See_Comment [Auto mated message] The system which ge nerated this result transmit claudia reference range : <=65. The reference range was not used to interpr et this result as charlie l/abnormal. [facility]2019-02-27 03:56:00 Test Item Value Reference Range Interpretation Comments Albumin Lvl (test code = Albumin Lvl) 3.8 3.5-5.0 [place] 048699-02-27 03:56:00 Test Item Value Reference Range Interpretation Comments Bili Total (test code = Bili Total) 0.4 0.2-1.3 [place] 048699-02-27 03:56:00 Test Item Value Reference Range Interpretation Comments Globulin (test code = Globulin) 4.7 2.7-4.2 [facility]2019-02-27 03:56:00 Test Item Value Reference Range Interpretation Comments A/G Ratio (test code = A/G Ratio) 0.8 1 0.7-1.6 [place] 048699-02-27 03:56:00 Test Item Value Reference Range Interpretation Comments B/C Ratio (test code = B/C Ratio) 13 1 6-25 [place] 048699-02-27 03:56:00 Test Item Value Reference Range Interpretation Comments AGAP (test code = AGAP) 9.8 10.0-20.0 [facility]ZbllrrbFNCJGQLNXLWGX1290-82-59 03:56:00 Test Item Value Reference Range Interpretation Comments S Preg (test code = S Negative *NA*(09/15/18 Preg) 9:56 PM) [facility] StationGfxdcxzTTZMPONIPS4313-73-49 03:56:00 Test Item Value Reference Range Interpretation Comments MPV (test code = MPV) 9.3 7.4-10.4 [facility] StationWyujfvcQWFJPAIYGJ0641-23-11 03:56:00 Test Item Value Reference Range Interpretation Comments MCHC (test code = MCHC) 33.6 32.0-36.0 [facility] StationXeuwpjzIVUOSSNBWU7868-10-57 03:56:00 Test Item Value Reference Range Interpretation Comments MCV (test code = MCV) 78.8 80.0-98.0 [facility] StationBdizlsdRFGSLAXKVZ6031-61-88 03:56:00 Test Item Value Reference Range Interpretation Comments MCH (test code = MCH) 26.5 pg 27.0-31.0 [facility] StationAeaidqaPYQMFZABZM1369-62-83 03:56:00 Test Item Value Reference Range Interpretation Comments Hgb (test code = Hgb) 13.5 12.0-16.0 [facility] StationNbalnfuUWNSVTDBQT7852-91-66 03:56:00 Test Item Value Reference Range Interpretation Comments RBC (test code = RBC) 5.09 4.20-5.40 [facility] StationPgjxqdyTEICYMXXJY8396-79-22 03:56:00 Test Item Value Reference Range Interpretation Comments Hct (test code = Hct) 40.1 36.0-48.0 [facility] StationGtvqsinBOOCISGRHX8207-98-51 03:56:00 Test Item Value Reference Range Interpretation Comments Platelet (test code = Platelet) 258 133-450 [facility] StationQghjmzpCRUMBWEYSK2584-59-53 03:56:00 Test Item Value Reference Range Interpretation Comments RDW (test code = RDW) 14.3 11.5-14.5 [facility] StationGflypnzXJHMAYLWJC7044-31-04 03:56:00 Test Item Value Reference Range Interpretation Comments WBC (test code = WBC) 8.2 4.5-13.5 [facility] StationXxlqlrzTSDKLVPQPS0410-91-06 03:56:00 Test Item Value Reference Range Interpretation Comments Microcyte (test code = 1+ *ABN*(09/15/18 Microcyte) 9:56 PM) [facility] StationEekcfaiASVSKAMLFQ8024-18-33 03:56:00 Test Item Value Reference Range Interpretation Comments Basophils (test code = 0.1 See_Comment [Aut omated message] The Basophils) system which ge nerated this result tra nsmitted reference range : <=1.0. The reference r deandra was not used to int erpret this result as normal/abnormal . [facility] StationTqvbxupWDQAQEXMLJ0463-01-64 03:56:00 Test Item Value Reference Range Interpretation Comments Monocytes # (test code 0.6 See_Comment [Aut omated message] The = Monocytes #) system which generated this result tra nsmitted reference range : <=1.6. The reference r deandra was not used to int erpret this result as normal/abnormal . [facility] StationUopephgDOTOKONUQW9856-62-54 03:56:00 Test Item Value Reference Range Interpretation Comments Eosinophils # (test code 0.2 See_Comment [A utomated message] The = Eosinophils #) system whic h generated this result tra nsmitted reference range : <=0.5. The reference r deandra was not used to int erpret this result as normal/abnormal . [facility] StationWwyapakYXTWNTTWAM8819-43-65 03:56:00 Test Item Value Reference Range Interpretation Comments Neutrophils # (test code = Neutrophils 5.1 1.5-8.7 #) [facility] StationJghdnbdRUNVLVAMOF1221-99-60 03:56:00 Test Item Value Reference Range Interpretation Comments Lymphocytes # (test code = Lymphocytes 2.3 1.0-5.5 #) [facility] StationKnqpgfiOQXRJGDTIC9803-57-47 03:56:00 Test Item Value Reference Range Interpretation Comments Lymphocytes (test code = Lymphocytes) 28.5 20.0-40.0 [facility] StationTxjndanSCVEJIMAJL8777-41-44 03:56:00 Test Item Value Reference Range Interpretation Comments Monocytes (test code = Monocytes) 7.3 2.0-12.0 [place] 082159-02-27 03:56:00 Test Item Value Reference Range Interpretation Comments Segs (test code = Segs) 62.1 34.0-64.0 [place] 082159-02-27 03:56:00 Test Item Value Reference Range Interpretation Comments Eosinophils (test code = 2.0 See_Comment [A utomated message] The Eosinophils) system which ge nerated this result tra nsmitted reference range : <=4.0. The reference r deandra was not used to int erpret this result as normal/abnormal . [facility]2019-02-27 03:56:00 Test Item Value Reference Range Interpretation Comments Lipase Lvl (test code = Lipase Lvl) 90 73-393 [place] 048699-02-27 03:56:00 Test Item Value Reference Range Interpretation Comments eGFR (test code = eGFR) See Comment [facility]2019-02-27 03:56:00 Test Item Value Reference Range Interpretation Comments Total Protein (test code = Total 8.5 6.4-8.4 Protein) [facility]2019-02-27 03:56:00 Test Item Value Reference Range Interpretation Comments Chloride Lvl (test code = Chloride Lvl) 105 95-109 [facility]2019-02-27 03:56:00 Test Item Value Reference Range Interpretation Comments CO2 (test code = CO2) 28 24-32 [facility]2019-02-27 03:56:00 Test Item Value Reference Range Interpretation Comments Potassium Lvl (test code = Potassium 3.8 3.5-5.1 Lvl) [facility]2019-02-27 03:56:00 Test Item Value Reference Range Interpretation Comments Glucose Lvl (test code = Glucose Lvl) 85 70-99 [facility]2019-02-27 03:56:00 Test Item Value Reference Range Interpretation Comments BUN (test code = BUN) 8 7-22 [facility]2019-02-27 03:56:00 Test Item Value Reference Range Interpretation Comments Sodium Lvl (test code = Sodium Lvl) 139 135-145 [facility]2019-02-27 03:56:00 Test Item Value Reference Range Interpretation Comments Creatinine Lvl (test code = Creatinine 0.63 0.50-1.40 Lvl) [facility]2019-02-27 03:56:00 Test Item Value Reference Range Interpretation Comments Calcium Lvl (test code = Calcium Lvl) 9.0 8.5-10.5 [facility]2019-02-27 03:56:00 Test Item Value Reference Range Interpretation Comments AST (test code = AST) 20 <=37 [place] 048699-02-27 03:56:00 Test Item Value Reference Range Interpretation Comments Alk Phos (test code = Alk Phos) 105 80-406 [facility]2019-02-27 03:56:00 Test Item Value Reference Range Interpretation Comments ALT (test code = ALT) 22 <=65 [place] 048699-02-27 03:56:00 Test Item Value Reference Range Interpretation Comments Albumin Lvl (test code = Albumin Lvl) 3.8 3.5-5.0 [facility]2019-02-27 03:56:00 Test Item Value Reference Range Interpretation Comments Bili Total (test code = Bili Total) 0.4 0.2-1.3 [facility]2019-02-27 03:56:00 Test Item Value Reference Range Interpretation Comments Globulin (test code = Globulin) 4.7 2.7-4.2 [facility]2019-02-27 03:56:00 Test Item Value Reference Range Interpretation Comments A/G Ratio (test code = A/G Ratio) 0.8 1 0.7-1.6 [facility]2019-02-27 03:56:00 Test Item Value Reference Range Interpretation Comments B/C Ratio (test code = B/C Ratio) 13 1 6-25 [facility]2019-02-27 03:56:00 Test Item Value Reference Range Interpretation Comments AGAP (test code = AGAP) 9.8 10.0-20.0 [place] 46195019-02-27 03:56:00 Test Item Value Reference Range Interpretation Comments S Preg (test code = S Negative *NA*(09/15/18 Preg) 9:56 PM) [facility] StationVmplqqhMSKTGYFVEI3040-80-28 03:56:00 Test Item Value Reference Range Interpretation Comments MPV (test code = MPV) 9.3 7.4-10.4 [facility] StationAlmcxflORNBJXOZJJ4687-56-93 03:56:00 Test Item Value Reference Range Interpretation Comments MCHC (test code = MCHC) 33.6 32.0-36.0 [facility] StationZmrxmqiMJZDYSJVYA9327-45-20 03:56:00 Test Item Value Reference Range Interpretation Comments MCV (test code = MCV) 78.8 80.0-98.0 [facility] StationLfhpmakOPLOXAEFKD9448-06-77 03:56:00 Test Item Value Reference Range Interpretation Comments MCH (test code = MCH) 26.5 pg 27.0-31.0 [facility] StationWmcbjdbUAETIOJRTP1243-98-75 03:56:00 Test Item Value Reference Range Interpretation Comments Hgb (test code = Hgb) 13.5 12.0-16.0 [facility] StationWktjldhGEZIQDXUQW9711-27-19 03:56:00 Test Item Value Reference Range Interpretation Comments RBC (test code = RBC) 5.09 4.20-5.40 [facility] StationLzybjffNEDHZKPSAK0341-76-51 03:56:00 Test Item Value Reference Range Interpretation Comments Hct (test code = Hct) 40.1 36.0-48.0 [facility] StationNzstdywDAMXDLKDUY2256-30-76 03:56:00 Test Item Value Reference Range Interpretation Comments Platelet (test code = Platelet) 258 133-450 [facility] [facility] StationTzsuxapWKHBZGYDHD8093-48-94 03:56:00 Test Item Value Reference Range Interpretation Comments RDW (test code = RDW) 14.3 11.5-14.5 [facility] StationSwfgsqxAYEMIXOKYO8280-84-18 03:56:00 Test Item Value Reference Range Interpretation Comments WBC (test code = WBC) 8.2 4.5-13.5 [facility] StationTtjchpuGZEMFSOONJ2260-33-97 03:56:00 Test Item Value Reference Range Interpretation Comments Microcyte (test code = 1+ *ABN*(09/15/18 Microcyte) 9:56 PM) [facility] StationKdlrgnwAEVQQUAZOQ4981-40-32 03:56:00 Test Item Value Reference Range Interpretation Comments Basophils (test code = Basophils) 0.1 <=1.0 [facility] StationCeptjpxGKXLWBFYAM1536-97-72 03:56:00 Test Item Value Reference Range Interpretation Comments Monocytes # (test code = Monocytes #) 0.6 <=1.6 [facility] StationSmwhuagNRJSCLDQSV2580-31-30 03:56:00 Test Item Value Reference Range Interpretation Comments Eosinophils # (test code = Eosinophils 0.2 <=0.5 #) [facility] StationNptaifhJLHVBUJBVN6331-63-67 03:56:00 Test Item Value Reference Range Interpretation Comments Neutrophils # (test code = Neutrophils 5.1 1.5-8.7 #) [facility] StationEsspfqcNHGPKVWLIZ2458-25-81 03:56:00 Test Item Value Reference Range Interpretation Comments Lymphocytes # (test code = Lymphocytes 2.3 1.0-5.5 #) [facility]TvcmmgkKMXINLFCBB0798-66-10 03:56:00 Test Item Value Reference Range Interpretation Comments Lymphocytes (test code = Lymphocytes) 28.5 20.0-40.0 [facility] StationHnqzdwdHUKZOQGSVH0400-35-96 03:56:00 Test Item Value Reference Range Interpretation Comments Monocytes (test code = Monocytes) 7.3 2.0-12.0 [facility] StationBjqpbskEQVHVLKTZS6725-87-44 03:56:00 Test Item Value Reference Range Interpretation Comments Segs (test code = Segs) 62.1 34.0-64.0 [facility] StationFlgfbhpOQSJIZOBGE0461-67-70 03:56:00 Test Item Value Reference Range Interpretation Comments Eosinophils (test code = Eosinophils) 2.0 <=4.0 [facility] [id number] 03:56:00 Test Item Value Reference Range Interpretation Comments Lipase Lvl (test code = Lipase Lvl) 90 73-393 [facility] [id number] 03:56:00 Test Item Value Reference Range Interpretation Comments eGFR (test code = eGFR) See Comment [id number] 03:56:00 Test Item Value Reference Range Interpretation Comments Total Protein (test code = Total 8.5 6.4-8.4 Protein) [facility], rapid strep rvtduc1917-40-65 16:16:58 Test Item Value Reference Range Interpretation Comments Microbial identification kit, rapid negative strep method (test code = 67279-7) [facility], [facility] st[facility] method 2018-08-25 15:29:37 Test Item Value Reference Range Interpretation Comments Microbial identification kit, rapid negative strep method (test code = 17631-0) [facility]hemoglobin A1C, blood, as % of total ipvpcqmcde9296-75-02 10:20:00 Test Item Value Reference Range Interpretation Comments hemoglobin A1C, blood, as % of total 5.4 % 4.8-5.6 hemoglobin (test code = 4548-4) [facility]LDL cholesterol, vvljq7740-58-90 10:20:00 Test Item Value Reference Range Interpretation Comments LDL cholesterol, serum (test code = 68 mg/dL 0-109 2088-1) [facility]HDL cholesterol, ntgko1151-02-78 10:20:00 Test Item Value Reference Range Interpretation Comments HDL cholesterol, serum (test code = 41 mg/dL >39 2084-9) [facility]triglyceride, serum, mjambig1552-04-85 10:20:00 Test Item Value Reference Range Interpretation Comments triglyceride, serum, fasting (test 56 mg/dL 0-89 code = 2571-8) [facility]cholesterol, rrjbn7595-10-54 10:20:00 Test Item Value Reference Range Interpretation Comments cholesterol, serum (test code = 120 mg/dL 231-950 0242-3) [facility] Hospitalrapid plasma reagin antibody, pexer1105-56-84 10:20:00 Test Item Value Reference Range Interpretation Comments rapid plasma reagin antibody, Non Reactive Non Reactive serum (test code = 5291-0) [facility] low density wekndufojcza6740-82-18 10:20:00 Test Item Value Reference Range Interpretation Comments very low density lipoproteins (test 11 mg/dL 5-40 code = 209-7) [facility] Hospitalalanine aminotransferase (SGPT), lyacj7668-07-45 10:20:00 Test Item Value Reference Range Interpretation Comments alanine aminotransferase (SGPT), serum 20 1/L 0-24 (test code = 1742-6) [facility] Hospitalaspartate aminotransferase (SGOT), tpraf2940-27-93 10:20:00 Test Item Value Reference Range Interpretation Comments aspartate aminotransferase (SGOT), 28 1/L 0-40 serum (test code = 1920-8) [facility] Hospitalalkaline phosphatase, vjrce1481-41-55 10:20:00 Test Item Value Reference Range Interpretation Comments alkaline phosphatase, serum (test code 99 1/L 62-149 = 1783-0) [facility] Hospitalbilirubin, serum, uspra5069-82-18 10:20:00 Test Item Value Reference Range Interpretation Comments bilirubin, serum, total (test code 0.4 mg/dL 0.0-1.2 = 1974-2) [facility] Hospitalalbumin/globulin ratio, [id number] 10:20:00 Test Item Value Reference Range Interpretation Comments albumin/globulin ratio, 1.5 (unknown unit) 1.2-2.2 serum (test code = 1759-0) [facility] Healthglobulin, xflxk5966-95-01 10:20:00 Test Item Value Reference Range Interpretation Comments globulin, serum (test code 3.1 (unknown unit) 1.5-4.5 = 2336-6) [facility] Healthalbumin, ervtb2984-00-11 10:20:00 Test Item Value Reference Range Interpretation Comments albumin, serum (test code = 1751-7) 4.6 g/dL 3.5-5.5 [facility] Healthprotein, total, [id number] 10:20:00 Test Item Value Reference Range Interpretation Comments protein, total, serum (test code = 7.7 g/dL 6.0-8.5 2885-2) [facility] Healthcalcium, cwcbj0202-04-20 10:20:00 Test Item Value Reference Range Interpretation Comments calcium, serum (test code = 1999-8) 9.4 mg/dL 8.9-10.4 [facility] Hospitalcarbon dioxide, venous yewez2088-45-78 10:20:00 Test Item Value Reference Range Interpretation Comments carbon dioxide, venous blood (test 23 mmol/L code = 2026-1) [facility] Healthchloride, trwjy8503-73-60 10:20:00 Test Item Value Reference Range Interpretation Comments chloride, serum (test code = 104 mmol/L 96-106 5-0) [facility]potassium, qnoav0492-30-91 10:20:00 Test Item Value Reference Range Interpretation Comments potassium, serum (test code = 4.3 mmol/L 3.5-5.2 2823-3) [facility] Healthsodium, bludd2953-32-74 10:20:00 Test Item Value Reference Range Interpretation Comments sodium, serum (test code = 2951-2) 139 mmol/L 134-144 [facility] Healthurea nitrogen/creatinine ratio, nhjgi2043-97-11 10:20:00 Test Item Value Reference Range Interpretation Comments urea nitrogen/creatinine 17 (unknown unit) 10-22 ratio, serum (test code = 3097-3) [facility]creatinine, [id number] 10:20:00 Test Item Value Reference Range Interpretation Comments creatinine, serum (test code = 0.59 mg/dL 0.49-0.90 0-0) [facility] Healthurea nitrogen, husqe6868-43-12 10:20:00 Test Item Value Reference Range Interpretation Comments urea nitrogen, blood (test code = 10 mg/dL 5-18 3094-0) [facility] Hospitalblood glucose, znjxas9126-66-88 10:20:00 Test Item Value Reference Range Interpretation Comments blood glucose, random (test code = 81 mg/dL 65-99 2339-0) [facility] Hospitalimmature granulocytes, percentage of total cells, blood 2017-12-04 10:20:00 Test Item Value Reference Range Interpretation Comments immature granulocytes, percentage of 0 % total cells, blood (test code = 91245-9) [facility] Hospitalbasophil count, [id number] 10:20:00 Test Item Value Reference Range Interpretation Comments basophil count, absolute (test 0.0 x10E3/uL 0.0-0.3 code = 43439-5) [facility] HospitalEosinophil Absolute Zdaue9383-63-39 10:20:00 Test Item Value Reference Range Interpretation Comments Eosinophil Absolute Count (test 0.1 X10E3/UL 0.0-0.4 code = 49442-4) [facility] Hospitalmonocyte count, blood, sowurfgdy8136-76-78 10:20:00 Test Item Value Reference Range Interpretation Comments monocyte count, blood, automated 0.5 X10E3/UL 0.1-0.9 (test code = 742-7) [facility]allymphocyte count, blood, bjqltvtsc0229-21-96 10:20:00 Test Item Value Reference Range Interpretation Comments lymphocyte count, blood, 1.6 X10E3/UL 0.7-3.1 automated (test code = 731-0) [facility] HospitalAbsolute Tjfhmnnmcnk9476-60-79 10:20:00 Test Item Value Reference Range Interpretation Comments Absolute Neutrophils (test code 4.2 X10E3/UL 1.4-7.0 = 14286-7) [facility] Hospitalbasophils as percent of blood rmtnltbtqg4217-34-91 10:20:00 Test Item Value Reference Range Interpretation Comments basophils as percent of blood 0 % leukocytes (test code = 707-0) [facility] Healtheosinophils as percent of blood bgfolrnpzy2198-53-38 10:20:00 Test Item Value Reference Range Interpretation Comments eosinophils as percent of blood 2 % leukocytes (test code = 713-8) [facility] Healthmonocytes as percent of blood skbfubwfcm4909-38-69 10:20:00 Test Item Value Reference Range Interpretation Comments monocytes as percent of blood 7 % leukocytes (test code = 5905-5) [facility]allymphocytes as percent of blood oiaexojefc0605-68-67 10:20:00 Test Item Value Reference Range Interpretation Comments lymphocytes as percent of blood 25 % leukocytes (test code = 736-9) [facility] Healthneutrophils as percent of blood nimuzpzbpw2751-53-17 10:20:00 Test Item Value Reference Range Interpretation Comments neutrophils as percent of blood 66 % leukocytes (test code = 770-8) [facility] Hospitalplatelet evzny9213-30-24 10:20:00 Test Item Value Reference Range Interpretation Comments platelet count (test code = 242 X10E3/UL 150-379 777-3) [facility] Hospitalred blood cell distribution zvnhh4198-80-30 10:20:00 Test Item Value Reference Range Interpretation Comments red blood cell distribution width 14.9 % 12.3-15.4 (test code = 788-0) [facility] corpuscular hemoglobin concentration, [id number] 10:20:00 Test Item Value Reference Range Interpretation Comments mean corpuscular hemoglobin 32.8 G/DL 31.5-35.7 concentration, RBC (test code = 786-4) [facility] corpuscular hemoglobin, [id number] 10:20:00 Test Item Value Reference Range Interpretation Comments mean corpuscular hemoglobin, RBC 26.1 pg 26.6-33.0 L (test code = 785-6) [facility], [id number] 10:20:00 Test Item Value Reference Range Interpretation Comments mean corpuscular volume, RBC (test code 80 fL 79-97 = 787-2) [facility]hematocrit, btzmq9958-63-62 10:20:00 Test Item Value Reference Range Interpretation Comments hematocrit, blood (test code = 4544-3) 40.2 % 34.0-46.6 [facility] Hospitalhemoglobin, ndtyu8189-14-17 10:20:00 Test Item Value Reference Range Interpretation Comments hemoglobin, blood (test code = 13.2 g/dL 11.1-15.9 718-7) [facility] Hospitalerythrocyte (RBC) jbjww0492-29-96 10:20:00 Test Item Value Reference Range Interpretation Comments erythrocyte (RBC) count (test 5.05 X10E6/UL 3.77-5.28 code = 789-8) [facility] Hospitalleukocyte count, gsjnp4534-10-04 10:20:00 Test Item Value Reference Range Interpretation Comments leukocyte count, blood (test 6.4 X10E3/UL 3.4-10.8 code = 6690-2) [facility]althyroxine, serum, [id number] 10:20:00 Test Item Value Reference Range Interpretation Comments thyroxine, serum, free (test code 1.34 ng/dL 0.93-1.60 = 3024-7) [facility] Hospitalthyroid stimulating hormone, wikwt6520-67-14 10:20:00 Test Item Value Reference Range Interpretation Comments thyroid stimulating hormone, 1.520 u[IU]/mL 0.450-4.500 serum (test code = 3016-3) [facility] HospitalHIV-CMIA (Chemiluminescent Microparticle Immuno Assay) 2017-12-04 10:20:00 Test Item Value Reference Range Interpretation Comments HIV-CMIA (Chemiluminescent Non Reactive Non Reactive Microparticle Immuno Assay) (test code = 68290-8) [facility] Hospitalchlamydia DNA eizpj5300-37-25 16:31:00 Test Item Value Reference Range Interpretation Comments chlamydia DNA probe (test code = Negative Negative 01077-4) [facility] HospitalNeisseria gonorrhoeae DNA cawbo5341-13-44 16:31:00 Test Item Value Reference Range Interpretation Comments Neisseria gonorrhoeae DNA probe Negative Negative (test code = 23899-9) [facility] HospitalNeisseria gonorrhoeae DNA fvxbs9611-85-92 16:31:00 Test Item Value Reference Range Interpretation Comments Neisseria gonorrhoeae DNA probe Negative Negative (test code = 25082-5) [facility] HospitalMicrobial identification kit, rapid strep method 2017-10-30 10:00:05 Test Item Value Reference Range Interpretation Comments Microbial identification kit, rapid negative strep method (test code = 97050-9) [facility] Hospitalbeta streptococcus screen, [id number] 14:24:00 Test Item Value Reference Range Interpretation Comments beta streptococcus screen, throat Negative (test code = 37793-3) [facility]beta streptococcus screen, kuohno5604-40-17 14:24:00 Test Item Value Reference Range Interpretation Comments beta streptococcus screen, throat Negative (test code = 546-2) [facility] HospitalMicrobial identification kit, rapid strep method 2017-01-08 11:00:13 Test Item Value Reference Range Interpretation Comments Microbial identification kit, rapid negative strep method (test code = 11475-3) [facility] Hospitalhemoglobin A1C, blood, as % of total ievevklslc6266-19-86 12:10:00 Test Item Value Reference Range Interpretation Comments hemoglobin A1C, blood, as % of total 5.6 % 4.8-5.6 hemoglobin (test code = 4548-4) [facility] HospitalLDL cholesterol, eioud5725-78-87 12:10:00 Test Item Value Reference Range Interpretation Comments LDL cholesterol, serum (test code = 68 mg/dL 0-109 2088-1) [facility] HospitalHDL cholesterol, wgnda5641-90-21 12:10:00 Test Item Value Reference Range Interpretation Comments HDL cholesterol, serum (test code = 48 mg/dL >39 2084-9) [facility] Hospitaltriglyceride, serum, yrzizxn2465-93-14 12:10:00 Test Item Value Reference Range Interpretation Comments triglyceride, serum, fasting (test 87 mg/dL 0-89 code = 2571-8) [facility] Hospitalcholesterol, [id number] 12:10:00 Test Item Value Reference Range Interpretation Comments cholesterol, serum (test code = 133 mg/dL 374-271 5663-3) [facility] Hospitalvery low density bkxbirmamrln7668-46-10 12:10:00 Test Item Value Reference Range Interpretation Comments very low density lipoproteins (test 17 mg/dL 5-40 code = 2091-7) [facility] Hospitalalanine aminotransferase (SGPT), qdzns8198-30-30 12:10:00 Test Item Value Reference Range Interpretation Comments alanine aminotransferase (SGPT), serum 19 1/L 0-24 (test code = 1742-6) [facility] Hospitalaspartate aminotransferase (SGOT), ywlsw0206-46-43 12:10:00 Test Item Value Reference Range Interpretation Comments aspartate aminotransferase (SGOT), 20 1/L 0-40 serum (test code = 1920-8) [facility] Hospitalalkaline phosphatase, lvjea4864-75-36 12:10:00 Test Item Value Reference Range Interpretation Comments alkaline phosphatase, serum (test 119 1/L 68-209 code = 1783-0) [facility] Hospitalbilirubin, serum, sneoi0999-80-11 12:10:00 Test Item Value Reference Range Interpretation Comments bilirubin, serum, total (test code 0.6 mg/dL 0.0-1.2 = 1975-2) [facility] Healthalbumin/globulin ratio, ypawd0478-07-58 12:10:00 Test Item Value Reference Range Interpretation Comments albumin/globulin ratio, 1.5 (unknown unit) 1.2-2.2 serum (test code = 1759-0) [facility] Healthglobulin, fmjyy3036-54-06 12:10:00 Test Item Value Reference Range Interpretation Comments globulin, serum (test code 3.1 (unknown unit) 1.5-4.5 = 2336-6) [facility] Healthalbumin, hvbyd5615-56-16 12:10:00 Test Item Value Reference Range Interpretation Comments albumin, serum (test code = 1751-7) 4.5 g/dL 3.5-5.5 [facility] Hospitalprotein, total, xhbjo9011-83-07 12:10:00 Test Item Value Reference Range Interpretation Comments protein, total, serum (test code = 7.6 g/dL 6.0-8.5 2885-2) [facility] Hospitalcalcium, izfcf5669-66-98 12:10:00 Test Item Value Reference Range Interpretation Comments calcium, serum (test code = 1999-8) 9.4 mg/dL 8.9-10.4 [facility] Hospitalcarbon dioxide, venous ybifb4057-36-58 12:10:00 Test Item Value Reference Range Interpretation Comments carbon dioxide, venous blood (test 22 mmol/L 18-29 code = 7-1) [facility] Hospitalchloride, lnnrz9979-63-92 12:10:00 Test Item Value Reference Range Interpretation Comments chloride, serum (test code = 100 mmol/L 96-106 2075-0) [facility] Healthpotassium, bklec2407-28-02 12:10:00 Test Item Value Reference Range Interpretation Comments potassium, serum (test code = 4.4 mmol/L 3.5-5.2 2823-3) [facility] Hospitalsodium, nflxg3901-85-16 12:10:00 Test Item Value Reference Range Interpretation Comments sodium, serum (test code = 2951-2) 140 mmol/L 134-144 [facility] Hospitalurea nitrogen/creatinine ratio, vmwvo0719-31-05 12:10:00 Test Item Value Reference Range Interpretation Comments urea nitrogen/creatinine 16 (unknown unit) 10-22 ratio, serum (test code = 3097-3) [facility] Hospitalcreatinine, dgfep2447-76-31 12:10:00 Test Item Value Reference Range Interpretation Comments creatinine, serum (test code = 0.56 mg/dL 0.49-0.90 2160-0) [facility] Hospitalurea nitrogen, jpuiw4468-02-56 12:10:00 Test Item Value Reference Range Interpretation Comments urea nitrogen, blood (test code = 9 mg/dL 5-18 3094-0) [facility] Hospitalblood glucose, yjvyim8647-99-25 12:10:00 Test Item Value Reference Range Interpretation Comments blood glucose, random (test code = 81 mg/dL 65-99 2339-0) [facility] Hospitalimmature granulocytes, percentage of total cells, blood 2016-12-20 12:10:00 Test Item Value Reference Range Interpretation Comments immature granulocytes, percentage of 0 % total cells, blood (test code = 56975-7) [facility] Hospitalbasophil count, mjonpdxt5699-60-69 12:10:00 Test Item Value Reference Range Interpretation Comments basophil count, absolute (test 0.0 x10E3/uL 0.0-0.3 code = 10774-6) [facility] HospitalEosinophil Absolute Lhpiz2221-93-81 12:10:00 Test Item Value Reference Range Interpretation Comments Eosinophil Absolute Count (test 0.4 X10E3/UL 0.0-0.4 code = 26340-1) [facility] Hospitalmonocyte count, blood, bpwyljhzf9498-42-83 12:10:00 Test Item Value Reference Range Interpretation Comments monocyte count, blood, automated 0.4 X10E3/UL 0.1-0.9 (test code = 742-7) [facility]allymphocyte count, blood, oaytaejty3688-30-99 12:10:00 Test Item Value Reference Range Interpretation Comments lymphocyte count, blood, 2.1 X10E3/UL 0.7-3.1 automated (test code = 731-0) [facility] HospitalAbsolute Yfldmofvyjb5808-57-42 12:10:00 Test Item Value Reference Range Interpretation Comments Absolute Neutrophils (test code 3.2 X10E3/UL 1.4-7.0 = 98144-9) [facility] Hospitalbasophils as percent of blood ispxdfdfij2615-64-78 12:10:00 Test Item Value Reference Range Interpretation Comments basophils as percent of blood 1 % leukocytes (test code = 707-0) [facility]aleosinophils as percent of blood lwzzawhcso5602-72-51 12:10:00 Test Item Value Reference Range Interpretation Comments eosinophils as percent of blood 6 % leukocytes (test code = 713-8) [facility] Healthmonocytes as percent of blood pmjiaxojpy5908-16-21 12:10:00 Test Item Value Reference Range Interpretation Comments monocytes as percent of blood 6 % leukocytes (test code = 5905-5) [facility] Hospitallymphocytes as percent of blood ugaeplgcci5518-41-26 12:10:00 Test Item Value Reference Range Interpretation Comments lymphocytes as percent of blood 35 % leukocytes (test code = 736-9) [facility] Hospitalneutrophils as percent of blood jhmotobwbz8275-78-21 12:10:00 Test Item Value Reference Range Interpretation Comments neutrophils as percent of blood 52 % leukocytes (test code = 770-8) [facility] Hospitalplatelet flsei8752-24-18 12:10:00 Test Item Value Reference Range Interpretation Comments platelet count (test code = 191 X10E3/UL 150-379 777-3) [facility] Hospitalred blood cell distribution wwgzv8536-36-34 12:10:00 Test Item Value Reference Range Interpretation Comments red blood cell distribution width 15.1 % 12.3-15.4 (test code = 788-0) [facility] Hospitalmean corpuscular hemoglobin concentration, [id number] 12:10:00 Test Item Value Reference Range Interpretation Comments mean corpuscular hemoglobin 33.6 G/DL 31.5-35.7 concentration, RBC (test code = 786-4) [facility] Hospitalmean corpuscular hemoglobin, [id number] 12:10:00 Test Item Value Reference Range Interpretation Comments mean corpuscular hemoglobin, RBC 26.3 pg 26.6-33.0 L (test code = 785-6) [facility] Hospitalmean corpuscular volume, [id number] 12:10:00 Test Item Value Reference Range Interpretation Comments mean corpuscular volume, RBC (test code 78 fL 79-97 L = 787-2) [facility] Hospitalhematocrit, lxwvy9633-72-63 12:10:00 Test Item Value Reference Range Interpretation Comments hematocrit, blood (test code = 4544-3) 38.7 % 34.0-46.6 [facility] Hospitalhemoglobin, xewxp0016-70-41 12:10:00 Test Item Value Reference Range Interpretation Comments hemoglobin, blood (test code = 13.0 g/dL 11.1-15.9 718-7) [facility] Hospitalerythrocyte (RBC) ayjoj0831-73-48 12:10:00 Test Item Value Reference Range Interpretation Comments erythrocyte (RBC) count (test 4.94 X10E6/UL 3.77-5.28 code = 789-8) [facility] Hospitalleukocyte count, fucpv1628-16-87 12:10:00 Test Item Value Reference Range Interpretation Comments leukocyte count, blood (test 6.1 X10E3/UL 3.4-10.8 code = 6690-2) [facility]althyroxine, serum, [id number] 12:10:00 Test Item Value Reference Range Interpretation Comments thyroxine, serum, free (test code 1.09 ng/dL 0.93-1.60 = 3024-7) [facility] Hospitalthyroid stimulating hormone, qpzqu5705-58-27 12:10:00 Test Item Value Reference Range Interpretation Comments thyroid stimulating hormone, 1.550 u[IU]/mL 0.450-4.500 serum (test code = 3016-3) [facility]cholesterol, szcqb3452-03-60 17:07:00 Test Item Value Reference Range Interpretation Comments cholesterol, serum (test code = 111 mg/dL 347-752 6377-3) [facility]hemoglobin, xxewj9729-46-81 13:13:01 Test Item Value Reference Range Interpretation Comments hemoglobin, blood (test code = 10.8 g/dL 718-7) [facility]beta streptococcus screen, okktvo3351-72-72 12:58:00 Test Item Value Reference Range Interpretation Comments beta streptococcus screen, throat Negative (test code = 85471-5) [facility]beta streptococcus screen, cvvfeh2887-46-63 12:58:00 Test Item Value Reference Range Interpretation Comments beta streptococcus screen, throat Negative (test code = 546-2) [facility], rapid strep method 2015-06-08 10:52:59 Test Item Value Reference Range Interpretation Comments Microbial identification kit, rapid negative strep method (test code = 45536-5) [facility] streptococcus screen, [id number] 20:35:00 Test Item Value Reference Range Interpretation Comments beta streptococcus screen, throat Negative (test code = 54961-9) [facility], [id number] 20:35:00 Test Item Value Reference Range Interpretation Comments beta streptococcus screen, throat Negative (test code = 546-2) [facility]althroat culture for mrhetvmhebugg6938-59-16 15:35:00 Test Item Value Reference Range Interpretation Comments throat culture for No beta hemolytic streptococcus (test Streptococci isolated code = 21174-9) [facility], rapid strep method 2014-12-19 12:07:14 Test Item Value Reference Range Interpretation Comments Microbial identification kit, rapid negative strep method (test code = 03480-4) [facility], rapid strep method 2014-12-06 12:29:45 Test Item Value Reference Range Interpretation Comments Microbial identification kit, rapid negative strep method (test code = 17183-5) [facility]influenza B virus [id number] 10:58:37 Test Item Value Reference Range Interpretation Comments influenza B virus antigen (test code negative = 67330-5) [facility]influ[facility] virus A [id number] 10:58:37 Test Item Value Reference Range Interpretation Comments influenza virus A antigen (test code negative = 5862-8) [facility]in[facility] virus pwgwbxg2685-32-28 11:44:39 Test Item Value Reference Range Interpretation Comments influenza B virus antigen (test code negative = 60151-7) [facility]influ[facility] A [id number] 11:44:39 Test Item Value Reference Range Interpretation Comments influenza virus A antigen (test code positive = 5862-8) [facility] Hospitalprotein, urine, semiquantitative (dipstick)2014-06-15 13:06:39 Test Item Value Reference Range Interpretation Comments protein, urine, semiquantitative 30 mg/dL (dipstick) (test code = 1753-3) [facility], rapid strep method 2014-06-15 13:06:39 Test Item Value Reference Range Interpretation Comments Microbial identification kit, rapid negative strep method (test code = 94930-0) [facility] HospitalpH, urine, lsbsvyqocehcdxpt8648-58-88 13:06:39 Test Item Value Reference Range Interpretation Comments pH, urine, semiquantitative 5.5 (unknown (test code = 5803-2) unit) [facility]alspecific gravity, zbiir1732-33-32 13:06:39 Test Item Value Reference Range Interpretation Comments specific gravity, urine (test code = >=1.030 5811-5) [facility] Hospitalglucose, urine, bblgorqufobczkye3665-42-15 13:06:39 Test Item Value Reference Range Interpretation Comments glucose, urine, semiquantitative negative (test code = 5792-7) [facility]bilirubin, xhizm2567-98-07 13:06:39 Test Item Value Reference Range Interpretation Comments bilirubin, urine (test code = 5770-3) small [facility]alketones, urine, by test [id number] 13:06:39 Test Item Value Reference Range Interpretation Comments ketones, urine, by test strip (test negative code = 5797-6) [facility] Hospitalurobilinogen, urine, semiquantitative (dipstick) 2014-06-15 13:06:39 Test Item Value Reference Range Interpretation Comments urobilinogen, urine, 0.2 E.U./dL semiquantitative (dipstick) (test code = 5818-0) [facility] Hospitalnitrite, urine, pktoavhxqlttwfjt7391-73-47 13:06:39 Test Item Value Reference Range Interpretation Comments nitrite, urine, semiquantitative negative (test code = 5802-4) [facility] Hospitalleukocyte esterase, urine, by zrvmnusz9381-44-29 13:06:39 Test Item Value Reference Range Interpretation Comments leukocyte esterase, urine, by negative dipstick (test code = 5799-2) [facility] Healthappearance, glvjt3036-52-62 13:06:39 Test Item Value Reference Range Interpretation Comments appearance, urine (test code = 5767-9) clear [facility] Healthurine necof0904-56-71 13:06:39 Test Item Value Reference Range Interpretation Comments urine color (test code = 5778-6) yellow [facility] Healthblood in urine (hemoglobin) by ttvfxmrk4093-34-96 13:06:39 Test Item Value Reference Range Interpretation Comments blood in urine (hemoglobin) by negative dipstick (test code = 4998) [facility] Healthblood in urine (hemoglobin) by cfrlzael2849-38-02 13:06:39 Test Item Value Reference Range Interpretation Comments blood in urine (hemoglobin) by negative dipstick (test code = 4998) [facility] Hospitalhemoglobin A1C, blood, as % of total snvfkgsief3131-83-47 12:35:00 Test Item Value Reference Range Interpretation Comments hemoglobin A1C, blood, as % of total 5.2 % 4.8-5.6 hemoglobin (test code = 4548-4) [facility] HospitalLDL cholesterol, acdlj1728-05-32 12:35:00 Test Item Value Reference Range Interpretation Comments LDL cholesterol, serum (test code = 49 mg/dL 0-109 9-1) [facility] HospitalHDL cholesterol, gzhrp1540-60-69 12:35:00 Test Item Value Reference Range Interpretation Comments HDL cholesterol, serum (test code = 58 mg/dL >39 5-9) [facility] Hospitaltriglyceride, serum, [id number] 12:35:00 Test Item Value Reference Range Interpretation Comments triglyceride, serum, fasting (test 139 mg/dL 0-89 H code = 2571-8) [facility]cholesterol, [id number] 12:35:00 Test Item Value Reference Range Interpretation Comments cholesterol, serum (test code = 135 mg/dL 360-009 7401-3) [facility] HospitalEstimated Average Afsliuf9227-14-22 12:35:00 Test Item Value Reference Range Interpretation Comments Estimated Average Glucose (test 103 mg/dL code = 14457-4) [facility] Hospitalvery low density osoyxdwlgkzc7431-85-82 12:35:00 Test Item Value Reference Range Interpretation Comments very low density lipoproteins (test 28 mg/dL 5-40 code = 2091-7) [facility] Hospitalalanine aminotransferase (SGPT), muzri6491-06-43 12:35:00 Test Item Value Reference Range Interpretation Comments alanine aminotransferase (SGPT), serum 17 1/L 0-28 (test code = 1742-6) [facility] Hospitalaspartate aminotransferase (SGOT), kbzim5714-04-07 12:35:00 Test Item Value Reference Range Interpretation Comments aspartate aminotransferase (SGOT), 25 1/L 0-40 serum (test code = 1920-8) [facility] Hospitalalkaline phosphatase, [id number] 12:35:00 Test Item Value Reference Range Interpretation Comments alkaline phosphatase, serum (test 206 1/L 134-349 code = 1783-0) [facility]bilirubin, serum, xqzhy7393-35-64 12:35:00 Test Item Value Reference Range Interpretation Comments bilirubin, serum, total (test code 0.5 mg/dL 0.0-1.2 = 1974-2) [facility] Hospitalalbumin/globulin ratio, orlxf4233-14-01 12:35:00 Test Item Value Reference Range Interpretation Comments albumin/globulin ratio, 1.8 (unknown unit) 1.1-2.5 serum (test code = 1759-0) [facility] Healthglobulin, goliq5949-39-31 12:35:00 Test Item Value Reference Range Interpretation Comments globulin, serum (test code 2.7 (unknown unit) 1.5-4.5 = 2336-6) [facility] Hospitalalbumin, [id number] 12:35:00 Test Item Value Reference Range Interpretation Comments albumin, serum (test code = 1751-7) 4.8 g/dL 3.5-5.5 [facility] Hospitalprotein, total, [id number] 12:35:00 Test Item Value Reference Range Interpretation Comments protein, total, serum (test code = 7.5 g/dL 6.0-8.5 2885-2) [facility] Healthcalcium, dkdla3487-16-83 12:35:00 Test Item Value Reference Range Interpretation Comments calcium, serum (test code = 1999-8) 9.2 mg/dL 9.1-10.5 [facility] Hospitalcarbon dioxide, venous xsqct2721-30-51 12:35:00 Test Item Value Reference Range Interpretation Comments carbon dioxide, venous blood (test 25 mmol/L 17- code = 2026-1) [facility] Healthchloride, tthyj3300-13-48 12:35:00 Test Item Value Reference Range Interpretation Comments chloride, serum (test code = 103 mmol/L 97-108 5-0) [facility] Healthpotassium, dtoti2029-51-98 12:35:00 Test Item Value Reference Range Interpretation Comments potassium, serum (test code = 3.8 mmol/L 3.5-5.2 2823-3) [facility]alsodium, [id number] 12:35:00 Test Item Value Reference Range Interpretation Comments sodium, serum (test code = 2951-2) 139 mmol/L 134-144 [facility] Healthurea nitrogen/creatinine ratio, errfz8177-08-29 12:35:00 Test Item Value Reference Range Interpretation Comments urea nitrogen/creatinine 23 (unknown unit) 9-25 ratio, serum (test code = 3097-3) [facility] Hospitalcreatinine, suswy1666-52-18 12:35:00 Test Item Value Reference Range Interpretation Comments creatinine, serum (test code = 0.53 mg/dL 0.39-0.70 2160-0) [facility] Hospitalurea nitrogen, [id number] 12:35:00 Test Item Value Reference Range Interpretation Comments urea nitrogen, blood (test code = 12 mg/dL 5-18 3094-0) [facility] Hospitalblood glucose, tvpoit0403-46-51 12:35:00 Test Item Value Reference Range Interpretation Comments blood glucose, random (test code = 102 mg/dL 65-99 H 2339-0) [facility] Hospitalimmature granulocytes, percentage of total cells, blood 2013-11-17 12:35:00 Test Item Value Reference Range Interpretation Comments immature granulocytes, percentage of 0 % 0-2 total cells, blood (test code = 59932-2) [facility] Hospitalbasophil count, avolpzar5572-65-36 12:35:00 Test Item Value Reference Range Interpretation Comments basophil count, absolute (test 0.0 x10E3/uL 0.0-0.3 code = 75681-1) [facility] HealthEosinophil Absolute Hztve7439-66-67 12:35:00 Test Item Value Reference Range Interpretation Comments Eosinophil Absolute Count (test 0.1 X10E3/UL 0.0-0.4 code = 45324-7) [facility] Healthmonocyte count, blood, iczlkwfot5945-93-54 12:35:00 Test Item Value Reference Range Interpretation Comments monocyte count, blood, automated 0.5 X10E3/UL 0.1-0.8 (test code = 742-7) [facility]allymphocyte count, blood, dtluvxsmb1617-54-92 12:35:00 Test Item Value Reference Range Interpretation Comments lymphocyte count, blood, 2.4 X10E3/UL 1.3-3.7 automated (test code = 731-0) [facility] HospitalAbsolute Bhppmxslqgk2002-39-12 12:35:00 Test Item Value Reference Range Interpretation Comments Absolute Neutrophils (test code 6.1 X10E3/UL 1.2-6.0 H = 44566-7) [facility] Hospitalbasophils as percent of blood fukauixmvj6680-34-23 12:35:00 Test Item Value Reference Range Interpretation Comments basophils as percent of blood 0 % 0-2 leukocytes (test code = 707-0) [facility] Healtheosinophils as percent of blood nmlwuqhcab1172-44-98 12:35:00 Test Item Value Reference Range Interpretation Comments eosinophils as percent of blood 1 % 0-5 leukocytes (test code = 713-8) [facility] Healthmonocytes as percent of blood oicdgoyfqt3936-36-48 12:35:00 Test Item Value Reference Range Interpretation Comments monocytes as percent of blood 5 % 3-11 leukocytes (test code = 5905-5) [facility]allymphocytes as percent of blood xslpksosgx7607-21-89 12:35:00 Test Item Value Reference Range Interpretation Comments lymphocytes as percent of blood 27 % 24-54 leukocytes (test code = 736-9) [facility] Hospitalneutrophils as percent of blood gdaccrgmhf4638-01-98 12:35:00 Test Item Value Reference Range Interpretation Comments neutrophils as percent of blood 67 % 32-65 H leukocytes (test code = 770-8) [facility] Hospitalplatelet xdwql2023-44-84 12:35:00 Test Item Value Reference Range Interpretation Comments platelet count (test code = 241 X10E3/UL 176-407 777-3) [facility] Hospitalred blood cell distribution uslwq4882-12-82 12:35:00 Test Item Value Reference Range Interpretation Comments red blood cell distribution width 13.9 % 12.3-15.1 (test code = 788-0) [facility] corpuscular hemoglobin concentration, GIH1310-72-12 12:35:00 Test Item Value Reference Range Interpretation Comments mean corpuscular hemoglobin 33.6 G/DL 31.7-36.0 concentration, RBC (test code = 786-4) [facility] corpuscular hemoglobin, [id number] 12:35:00 Test Item Value Reference Range Interpretation Comments mean corpuscular hemoglobin, RBC 26.1 pg 25.7-31.5 (test code = 785-6) [facility] corpuscular volume, [id number] 12:35:00 Test Item Value Reference Range Interpretation Comments mean corpuscular volume, RBC (test code 78 fL 77-91 = 787-2) [facility] Hospitalhematocrit, ummnp9719-89-02 12:35:00 Test Item Value Reference Range Interpretation Comments hematocrit, blood (test code = 4544-3) 37.5 % 34.8-45.8 [facility] Hospitalhemoglobin, gfutm1817-37-08 12:35:00 Test Item Value Reference Range Interpretation Comments hemoglobin, blood (test code = 12.6 g/dL 11.7-15.7 718-7) [facility] Hospitalerythrocyte (RBC) cosfp9949-52-60 12:35:00 Test Item Value Reference Range Interpretation Comments erythrocyte (RBC) count (test 4.82 X10E6/UL 3.91-5.45 code = 789-8) [facility] Hospitalleukocyte count, [id number] 12:35:00 Test Item Value Reference Range Interpretation Comments leukocyte count, blood (test 9.0 X10E3/UL 3.7-10.5 code = 6690-2) [facility] Healththyroxine, serum, bxol1612-55-57 12:35:00 Test Item Value Reference Range Interpretation Comments thyroxine, serum, free (test code 1.10 ng/dL 0.90-1.67 = 3024-7) [facility] Hospitalthyroid stimulating hormone, xbgap1711-13-01 12:35:00 Test Item Value Reference Range Interpretation Comments thyroid stimulating hormone, 1.900 u[IU]/mL 0.600-4.840 serum (test code = 3016-3) [facility] Hospitalhemoglobin, hyhcz6123-27-99 11:35:21 Test Item Value Reference Range Interpretation Comments hemoglobin, blood (test code = 13.9 g/dL 718-7) [facility]beta streptococcus screen, jpmvfs8560-12-84 21:57:00 Test Item Value Reference Range Interpretation Comments beta streptococcus screen, throat Negative (test code = 19100-3) [facility]beta streptococcus screen, itvsol6765-21-88 21:57:00 Test Item Value Reference Range Interpretation Comments beta streptococcus screen, throat Negative (test code = 546-2) [facility] HealthMicrobial identification kit, rapid strep method 2013 16:25:07 Test Item Value Reference Range Interpretation Comments Microbial identification kit, rapid negative strep method (test code = 90907-5) [facility]beta streptococcus screen, vupipw5475-34-57 16:15:00 Test Item Value Reference Range Interpretation Comments beta streptococcus screen, throat Negative (test code = 08224-1) [facility]beta streptococcus screen, lpyzlw7308-07-75 16:15:00 Test Item Value Reference Range Interpretation Comments beta streptococcus screen, throat Negative (test code = 546-2) [facility] HospitalMicrobial identification kit, rapid strep method 2013-08-19 15:36:33 Test Item Value Reference Range Interpretation Comments Microbial identification kit, rapid negative strep method (test code = 63320-7) [facility] Hospitalurine shaexxp5515-47-08 13:58:00 Test Item Value Reference Range Interpretation Comments urine culture (test code = 630-4) No growth [facility] identification [facility], rapid strep method 2013-08-04 12:31:29 Test Item Value Reference Range Interpretation Comments Microbial identification kit, rapid positive strep method (test code = 09698-1) [facility] Hospitalprotein, urine, semiquantitative (dipstick)2013-08-04 12:31:29 Test Item Value Reference Range Interpretation Comments protein, urine, semiquantitative 1+ (dipstick) (test code = 1753-3) [facility] Hospitalspecific gravity, [id number] 12:31:29 Test Item Value Reference Range Interpretation Comments specific gravity, urine 1.030 (unknown unit) (test code = 5811-5) [facility] HospitalpH, urine, keqzhweedmodjief9167-52-39 12:31:29 Test Item Value Reference Range Interpretation Comments pH, urine, semiquantitative 6.0 (unknown (test code = 5803-2) unit) [facility] Hospitalglucose, urine, vamgjgleiiqrwcbh3600-88-51 12:31:29 Test Item Value Reference Range Interpretation Comments glucose, urine, semiquantitative negative (test code = 5792-7) [facility] Hospitalbilirubin, zszmf8472-88-58 12:31:29 Test Item Value Reference Range Interpretation Comments bilirubin, urine (test code = negative 5770-3) [facility] Hospitalketones, urine, by test [id number] 12:31:29 Test Item Value Reference Range Interpretation Comments ketones, urine, by test strip (test negative code = 5797-6) [facility] Hospitalurobilinogen, urine, semiquantitative (dipstick) 2013-08-04 12:31:29 Test Item Value Reference Range Interpretation Comments urobilinogen, urine, negative semiquantitative (dipstick) (test code = 5818-0) [facility] Hospitalnitrite, urine, xtvizmjbuxdvwlgl2056-34-12 12:31:29 Test Item Value Reference Range Interpretation Comments nitrite, urine, semiquantitative negative (test code = 5802-4) [facility] Hospitalleukocyte esterase, urine, by grfeilcz2558-23-81 12:31:29 Test Item Value Reference Range Interpretation Comments leukocyte esterase, urine, by negative dipstick (test code = 5799-2) [facility] Hospitalappearance, [id number] 12:31:29 Test Item Value Reference Range Interpretation Comments appearance, urine (test code = 5767-9) clear [facility] Healthurine kpgmi5388-74-87 12:31:29 Test Item Value Reference Range Interpretation Comments urine color (test code = 5778-6) yellow [facility] Healthblood in [facility] (hemoglobin) by xbtxwnhc1425-89-87 12:31:29 Test Item Value Reference Range Interpretation Comments blood in urine (hemoglobin) by negative dipstick (test code = 4998) [facility] Healthblood in urine (hemoglobin) by wrsqnixq5592-15-28 12:31:29 Test Item Value Reference Range Interpretation Comments blood in urine (hemoglobin) by negative dipstick (test code = 4998) [facility] HospitalMicrobial identification kit, rapid strep method 2013-05-14 16:15:05 Test Item Value Reference Range Interpretation Comments Microbial identification kit, rapid positive strep method (test code = 88908-0) [facility]beta streptococcus screen, junomn2225-30-01 15:39:00 Test Item Value Reference Range Interpretation Comments beta streptococcus screen, throat Negative (test code = 75005-4) [facility]beta streptococcus screen, jisehj4249-18-90 15:39:00 Test Item Value Reference Range Interpretation Comments beta streptococcus screen, throat Negative (test code = 546-2) [facility] Healthhemoglobin, rsijb0003-44-23 17:35:47 Test Item Value Reference Range Interpretation Comments hemoglobin, blood (test code = 12.2 g/dL 718-7) [facility]beta streptococcus screen, xszwsi0473-94-21 13:42:00 Test Item Value Reference Range Interpretation Comments beta streptococcus screen, throat Negative (test code = 32493-7) [facility] Healthinfectious mononucleosis mffqmq8907-70-31 13:42:00 Test Item Value Reference Range Interpretation Comments infectious mononucleosis screen Negative Negative (test code = 00286) [facility], qaowoe0621-69-73 13:42:00 Test Item Value Reference Range Interpretation Comments beta streptococcus screen, throat Negative (test code = 546-2) [facility]infectious mononucleosis qlmycx4065-25-54 13:42:00 Test Item Value Reference Range Interpretation Comments infectious mononucleosis screen Negative Negative (test code = 90391) [facility] Hospitalprotein, urine, semiquantitative (dipstick)2012-09-30 13:02:52 Test Item Value Reference Range Interpretation Comments protein, urine, semiquantitative negative (dipstick) (test code = 1753-3) [facility] HospitalMicrobial identification kit, rapid strep method 2012-09-30 13:02:52 Test Item Value Reference Range Interpretation Comments Microbial identification kit, rapid negative strep method (test code = 88230-7) [facility] Hospitalglucose, urine, zivdolcfqszwbgii9769-00-98 13:02:52 Test Item Value Reference Range Interpretation Comments glucose, urine, semiquantitative negative (test code = 5792-7) [facility] Hospitalbilirubin, lyart4903-68-45 13:02:52 Test Item Value Reference Range Interpretation Comments bilirubin, urine (test code = negative 5770-3) [facility] Hospitalketones, urine, by test mfydo0207-88-05 13:02:52 Test Item Value Reference Range Interpretation Comments ketones, urine, by test strip (test negative code = 5797-6) [facility]alspecific gravity, fbscg5866-66-82 13:02:52 Test Item Value Reference Range Interpretation Comments specific gravity, urine 1.015 (unknown unit) (test code = 5811-5) [facility] HospitalpH, urine, ihfpxahrhscsaejw7449-34-19 13:02:52 Test Item Value Reference Range Interpretation Comments pH, urine, semiquantitative 8.0 (unknown (test code = 5803-2) unit) [facility] Hospitalurobilinogen, urine, semiquantitative (dipstick) 2012-09-30 13:02:52 Test Item Value Reference Range Interpretation Comments urobilinogen, urine, 0.2 (unknown semiquantitative (dipstick) unit) (test code = 5818-0) [facility] Hospitalnitrite, urine, eqolvvcmefntrypc2016-86-39 13:02:52 Test Item Value Reference Range Interpretation Comments nitrite, urine, semiquantitative negative (test code = 5802-4) [facility] Hospitalleukocyte esterase, urine, by skgdbfky1483-45-32 13:02:52 Test Item Value Reference Range Interpretation Comments leukocyte esterase, urine, by negative dipstick (test code = 5799-2) [facility]appearance, pplce0402-42-75 13:02:52 Test Item Value Reference Range Interpretation Comments appearance, urine (test code = 5767-9) clear [facility] Healthurine naqkl4032-17-34 13:02:52 Test Item Value Reference Range Interpretation Comments urine color (test code = 5778-6) yellow [facility] Healthblood in urine (hemoglobin) by rzcmlrbn8576-23-59 13:02:52 Test Item Value Reference Range Interpretation Comments blood in urine (hemoglobin) by negative dipstick (test code = 4998) [facility] Healthblood in urine (hemoglobin) by uxyjbhyv0822-51-81 13:02:52 Test Item Value Reference Range Interpretation Comments blood in urine (hemoglobin) by negative dipstick (test code = 4998) [facility] HealthPPD results in [id number] 10:45:51 Test Item Value Reference Range Interpretation Comments PPD results in mm (test code = 745947) 0 mm [facility] HospitalPPD results in yq8040-56-95 10:45:51 Test Item Value Reference Range Interpretation Comments PPD results in mm (test code = 223192) 0 mm [facility]
[2023-05-23 15:07] LABS: SARS-CoV-2 Antigen Rapid Res Negative (Negative)
--- NOTE | 2023-05-23 15:14 | ER ---
Nurse's Notes [facility] Name: Amee Hernández Age: 17 yrs Sex: Female : 2005 Arrival Date: 05/23/2023 Time: 14:10 Bed IW1 Private MD: Diagnosis: Influenza due to identified novel influenza A virus with other respiratory manifestations Presentation: 05/23 14:24 Chief complaint: Patient states: sore throat and congestion X 2days. Coronavirus cm10 screen: Vaccine status: Patient reports being unvaccinated. Client denies travel out of the [place] in the last 14 days. Ebola Screen: Patient denies travel to an Ebola-affected area in the 21 days before illness onset. No symptoms or risks identified at this time. Initial Sepsis Screen: Does the patient meet any 2 criteria? No. Patient's initial sepsis screen is negative. Does the patient have a suspected source of infection? No. Patient's initial sepsis screen is negative. Risk Assessment: Do you want to hurt yourself or someone else? Patient reports no desire to harm self or others. Onset of symptoms was May 23, 2023. 14:24 Method Of Arrival: Ambulatory cm10 14:24 Acuity: REY 4 cm10 Triage Assessment: 15:29 General: Appears in no apparent distress. comfortable, Behavior is calm, cooperative. cm10 Pain: Denies pain. EENT: No deficits noted. No signs and/or symptoms were reported regarding the EENT system. Neuro: No deficits noted. Jones Agitation-Sedation Scale (RASS): 0 - Alert and Calm Level of Consciousness is awake, alert, obeys commands, Oriented to person, place, time, situation. Cardiovascular: No deficits noted. Patient's skin is warm and dry. Respiratory: No deficits noted. Airway is patent Respiratory effort is even, unlabored, Respiratory pattern is regular, symmetrical. Historical: - Allergies: 14:25 No Known Allergies; cm10 - PMHx: 14:25 Anxiety; Asthma; cm10 - Immunization history:: Adult Immunizations unknown. - Social history:: Smoking status: Reported history of juuling and/or vaping. Screenin:30 [facility] ED Fall Risk Assessment (Adult) History of falling in the last 3 months, cm10 including since admission. [facility] ED Fall Risk Assessment (Adult) History of falling in the last 3 months, including since admission No falls in past 3 months (0 pts). Abuse screen: Denies threats or abuse. Denies injuries from another. Nutritional screening: No deficits noted. Tuberculosis screening: No symptoms or risk factors identified. Vital Signs: 14:24 BP 138 / 78; Pulse 90; Resp 18; Temp 97.1; Pulse Ox 99% on R/A; Weight 90.72 kg; Height cm10 5 ft. 4 in. ; Pain 8/10; 14:24 Body Mass Index 34.33 (90.72 kg, 162.56 cm) - Percentile 96.9 % cm10 14:24 Pain Scale: Adult cm10 ED Course: 14:11 Patient arrived in ED. rg4 14:11 [facility] 7 14:11 Enrico Howell MD is Attending Physician. 7 14:24 SARS RAPID Sent. cm10 14:24 Flu Sent. cm10 14:24 Strep Sent. cm10 14:25 Triage completed. cm10 14:25 Arm band placed on Patient placed in waiting room. cm10 15:30 No provider procedures requiring assistance completed. Patient did not have IV access cm10 during this emergency room visit. 15:30 Patient has correct armband on for positive identification. Provided Education on: cm10 Follow up. Administered Medications: No medications were administered Medication: 15:30 VIS not applicable for this client. cm10 Outcome: 15:13 Discharge ordered by . [facility] 15:30 Discharged to home ambulatory, cm10 15:30 Condition: good 15:30 Discharge instructions given to patient, Instructed on discharge instructions, follow up and referral plans. medication usage, Demonstrated understanding of instructions, follow-up care, medications, Prescriptions given X 2, 15:30 Patient left the ED. cm10 Signatures: Tasneem Meyers rg4 Jenn Hernandez FNP FNP jh7 Martinez, Clarissa, RN RN cm10
--- NOTE | 2023-05-23 15:14 | EDPHYS ---
Physician Documentation [facility] Name: Amee Hernández Age: 17 yrs Sex: Female : 2005 Arrival Date: 05/23/2023 Time: 14:10 Bed IW1 Private MD: ED Physician Enrico Howell HPI: 05/23 14:24 This 17 yrs old Female presents to ER via Ambulatory with complaints of Ear jh7 Pain, Congestion, Sore Throat. 14:24 17-year-old female complains of congestion, ear pain, cough, and sore throat for the jh7 past 2 days. She denies fever or any sick contacts. History of asthma.. Historical: - Allergies: 14:25 No Known Allergies; cm10 - PMHx: 14:25 Anxiety; Asthma; cm10 - Immunization history:: Adult Immunizations unknown. - Social history:: Smoking status: Reported history of juuling and/or vaping. ROS: 14:24 Constitutional: Negative for fever, chills, and weight loss, Eyes: Negative for injury, jh7 pain, redness, and discharge, Neck: Negative for injury, pain, and swelling, Cardiovascular: Negative for chest pain, palpitations, and edema, Respiratory: Negative for shortness of breath, cough, wheezing, and pleuritic chest pain, Abdomen/GI: Negative for abdominal pain, nausea, vomiting, diarrhea, and constipation, Back: Negative for injury and pain, MS/Extremity: Negative for injury and deformity, Skin: Negative for injury, rash, and discoloration, Neuro: Negative for headache, weakness, numbness, tingling, and seizure, 14:24 ENT: Positive for ear pain, sinus congestion, sore throat, 14:24 All other systems are negative, Exam: 14:24 Constitutional: This is a well developed, well nourished patient who is awake, alert, jh7 and in no acute distress. Head/Face: Normocephalic, atraumatic. Neck: Trachea midline, no thyromegaly or masses palpated, and no cervical lymphadenopathy. Supple, full range of motion without nuchal rigidity, or vertebral point tenderness. No Meningismus. Cardiovascular: Regular rate and rhythm with a normal S1 and S2. No gallops, murmurs, or rubs. Normal PMI, no JVD. No pulse deficits. Respiratory: Lungs have equal breath sounds bilaterally, clear to auscultation and percussion. No rales, rhonchi or wheezes noted. No increased work of breathing, no retractions or nasal flaring. Back: No spinal tenderness. No costovertebral tenderness. Full range of motion. Skin: Warm, dry with normal turgor. Normal color with no rashes, no lesions, and no evidence of cellulitis. MS/ Extremity: Pulses equal, no cyanosis. Neurovascular intact. Full, normal range of motion. Neuro: Awake and alert, GCS 15, oriented to person, place, time, and situation. Motor strength 5/5 in all extremities. Sensory grossly intact. Normal gait. 14:24 ENT: TM's: are normal, Posterior pharynx: erythema, that is mild, pooling of secretions, that are mild, Vital Signs: 14:24 BP 138 / 78; Pulse 90; Resp 18; Temp 97.1; Pulse Ox 99% on R/A; Weight 90.72 kg; Height cm10 5 ft. 4 in. ; Pain 8/10; 14:24 Body Mass Index 34.33 (90.72 kg, 162.56 cm) - Percentile 96.9 % cm10 14:24 Pain Scale: Adult cm10 MDM: 14:12 Patient medically screened. [facility] 15:15 Differential diagnosis: URI, flu, covid, strep. Data reviewed: vital signs, nurses [facility] notes. Counseling: I had a detailed discussion with the patient and/or guardian regarding the historical points, exam findings, and any diagnostic results supporting the discharge/admit diagnosis, to return to the emergency department if symptoms worsen or persist or if there are any questions or concerns that arise at home. 05/23 14:16 Order name: Strep [facility] 05/23 14:16 Order name: Flu; Complete Time: 15:12 [facility] 05/23 14:16 Order name: SARS RAPID; Complete Time: 15:12 [facility] 05/23 15:00 Order name: Throat Culture EDMS Administered Medications: No medications were administered Disposition: 17:15 Co-signature as Attending Physician, Enrico Howell MD I reviewed the patient's care rn provided by the Advanced Practice Provider and agree with the diagnosis and treatment plan. Disposition Summary: 05/23/23 15:13 Discharge Ordered Notes: Location: Home [facility] Problem: new [facility] Symptoms: are unchanged [facility] Condition: Stable [facility] Diagnosis - Influenza due to identified novel influenza A virus with other respiratory [facility] manifestations Followup: [facility] - With: Private Physician - When: 2 - 3 days - Reason: Recheck today's complaints Discharge Instructions: - Discharge Summary Sheet [facility] - Influenza, Adult [facility] Forms: - Medication Reconciliation Form [facility] - Thank You Letter [facility] - Patient Portal Instructions [facility] - Leadership Thank You Letter [facility] - Work release form 10 Prescriptions: - Tamiflu 75 mg Oral Capsule - take 1 capsule ORAL route every 12 hours for 5 days; 10 capsule; Refills: 0, [facility] Product Selection Permitted - Tessalon Perles 100 mg Oral Capsule - take 1 capsule ORAL route every 8 hours As needed; 15 capsule; Refills: 0, [facility] Product Selection Permitted Signatures: Dispatcher [employer] Enrico Garrido MD MD rn Hadash, Jennifer, HEAVY LINE TECHNICIAN HEAVY LINE TECHNICIAN [facility] Preeti Bird RN RN 10
[2023-05-23 15:35] VITALS: BP 138/78; TEMP 97.1; O2SAT 99
== END 2023-05-23 15:30 | disposition home or self-care (01) ==
LOC: ER 14:10
DX: J10.1 Influenza due to other identified influenza virus with other respiratory manifestations (principal); H92.09 Otalgia, unspecified ear; R05.9 Cough, unspecified; F17.290 Nicotine dependence, other tobacco product, uncomplicated; Z11.52 Encounter for screening for COVID-19
CPT/HCPCS: 36415; 87070; 87081; 87804; 87811; 99283